=== PATIENT | female | born 1955 | race Caucasian/White ===

== ENCOUNTER → 2018-09-15 | Outpatient (CLI) | payer OTHER ==
--- NOTE | 2018-09-15 13:17 | XR ---
EXAMINATION TYPE: XR chest 2V DATE OF EXAM: 09/08/2017 COMPARISON: NONE TECHNIQUE: PA and lateral views submitted. HISTORY: Breast cancer FINDINGS: The lungs are clear and there is no pneumothorax, pleural effusion, or focal pneumonia. Hypertrophi c and degenerative change of the vertebral column. No overt failure. Arthropathy of the shoulders. Perales rgical change in the abdomen. IMPRESSION: 1. No acute process.
--- NOTE | 2018-09-15 15:03 | MM ---
Reason for exam: additional evaluation requested from prior study. Last mammogram was performed 1 year ago. History: Patient is postmenopausal, has history of breast cancer at age 45, history of other cancer, and is nulliparous. Benign left mammotome panel of the left breast, April 13, 2007. Benign right mammotome panel of the right breast, March 24, 2006. Benign right mammotome panel of the right breast, March 24, 2006. Malignant stereotactic core biopsy of the left breast, February 05, 2001. Lumpectomy of the left breast, 2000. Chemotherapy, 2000. Core biopsy of the left breast. Lumpectomy of the left breast. Radiation therapy of the left breast. Took hormonal contraceptives for 3 months beginning at age 26. Taking tamoxifen for 8 years beginning at age 46. Physical Findings: Nurse did not find any significant physical abnormalities on exam. MG Diagnostic Mammo w CAD [facility] Bilateral CC and MLO view(s) were taken. ML view(s) were taken of the right breast. Prior study comparison: September 08, 2017, bilateral MG diagnostic mammo w CAD [facility]. September 03, 2016, bilateral MG diagnostic mammo w CAD [facility]. The breast tissue is heterogeneously dense. This may lower the sensitivity of mammography. There are increased calcifications posterior depth right upper outer quadrant in comparison to priors although these appear similar to multiple other bilateral calcifications and are probably benign. These are in addition to numerous bilateral calcifications. Post operative change on the left. These results were verbally communicated with the patient and result sheet given to the patient on 09/15/18. ASSESSMENT: Probably benign, BI-RAD 3 RECOMMENDATION: Follow-up diagnostic mammogram of the right breast in 6 months.
== END | disposition home or self-care (01) ==
LOC: RADMAMWWP 12:53
PROVIDERS: ATTEND Internal Medicine Hematology & Oncology
DX: Z08 Encounter for follow-up examination after completed treatment for malignant neoplasm (principal); C50.919 Malignant neoplasm of unspecified site of unspecified female breast; K21.9 Gastro-esophageal reflux disease without esophagitis; K58.9 Irritable bowel syndrome, unspecified; E66.3 Overweight; Z85.3 Personal history of malignant neoplasm of breast
CPT/HCPCS: 71046; 77066

== ENCOUNTER → 2020-06-28 | Outpatient (CLI) | payer MEDICARE, BC ==
--- NOTE | 2020-06-28 12:52 | XR ---
EXAMINATION TYPE: XR chest 2V DATE OF EXAM: 06/28/2020 COMPARISON: Prior chest x-ray 09/15/2018 HISTORY: Breast cancer TECHNIQUE: Frontal and lateral views of the chest are obtained. FINDINGS: There is no focal air space opacity, pleural effusion, or pneumothorax seen. The cardiac silhouette size is within normal limits. The osseous structures are intact. Surgical clips are pres ent in the right upper quadrant. IMPRESSION: No acute cardiopulmonary process.
--- NOTE | 2020-06-29 17:35 | MM ---
Reason for exam: additional evaluation requested from prior study. Last mammogram was performed 1 year and 9 months ago. History: Patient is postmenopausal, has history of breast cancer at age 45, history of other cancer, and is nulliparous. Benign left mammotome panel of the left breast, April 13, 2007. Benign right mammotome panel of the right breast, March 24, 2006. Benign right mammotome panel of the right breast, March 24, 2006. Malignant stereotactic core biopsy of the left breast, February 05, 2001. Lumpectomy of the left breast, 2000. Chemotherapy, 2000. Core biopsy of the left breast. Lumpectomy of the left breast. Radiation therapy of the left breast. Took hormonal contraceptives for 3 months beginning at age 26. Taking tamoxifen for 8 years beginning at age 46. Physical Findings: Nurse did not find any significant physical abnormalities on exam. MG 3D Diag Mammo W/Cad [facility] Bilateral CC and MLO view(s) were taken. Prior study comparison: September 15, 2018, bilateral MG diagnostic mammo w CAD [facility]. September 08, 2017, bilateral MG diagnostic mammo w CAD [facility]. The breast tissue is heterogeneously dense. This may lower the sensitivity of mammography. Finding: There are typically benign coarse calcifications in the left breast. There are stable right breast calcifications. Asymmetric breast tissue greater in the right breast. No significant changes in finding since September 15, 2018 and September 08, 2017. These results were verbally communicated with the patient and result sheet given to the patient on 06/28/20. ASSESSMENT: Benign, BI-RAD 2 RECOMMENDATION: Routine screening mammogram of both breasts in 1 year.
== END | disposition home or self-care (01) ==
LOC: RADMAMWWP 10:41
PROVIDERS: ATTEND Internal Medicine Hematology & Oncology
DX: C50.919 Malignant neoplasm of unspecified site of unspecified female breast (principal); Z85.3 Personal history of malignant neoplasm of breast; E66.3 Overweight; K21.9 Gastro-esophageal reflux disease without esophagitis; K58.9 Irritable bowel syndrome, unspecified
CPT/HCPCS: 71046; 77066; G0279; 77062

== ENCOUNTER → 2021-08-02 | Outpatient (CLI) | payer MEDICARE, BC ==
--- NOTE | 2021-08-02 14:28 | XR ---
EXAMINATION TYPE: XR chest 2V DATE OF EXAM: 08/02/2021 COMPARISON: Chest x-ray 06/28/2020 HISTORY: C 50.919 TECHNIQUE: Frontal and lateral views of the chest are obtained. FINDINGS: There is no focal air space opacity, pleural effusion, or pneumothorax seen. The cardiac silhouette size is within normal limits. Left breast smaller than the right breast. The osseous struc tures are intact, stable. IMPRESSION: No acute cardiopulmonary process.
--- NOTE | 2021-08-03 12:08 | MM ---
Reason for exam: screening (asymptomatic). Last mammogram was performed 1 year and 1 month ago. History: Patient is postmenopausal, has history of breast cancer at age 45, history of other cancer, and is nulliparous. Benign left mammotome panel of the left breast, April 13, 2007. Benign right mammotome panel of the right breast, March 24, 2006. Benign right mammotome panel of the right breast, March 24, 2006. Malignant stereotactic core biopsy of the left breast, February 05, 2001. Lumpectomy of the left breast, 2000. Chemotherapy, 2000. Core biopsy of the left breast. Lumpectomy of the left breast. Radiation therapy of the left breast. Took hormonal contraceptives for 3 months beginning at age 26. Took tamoxifen for 8 years beginning at age 46. Physical Findings: A clinical breast exam by your physician is recommended on an annual basis and results should be correlated with mammographic findings. MG 3D Screening Mammo W/Cad Bilateral CC and MLO view(s) were taken. Prior study comparison: June 28, 2020, bilateral MG 3d diag mammo w/cad [facility]. September 15, 2018, bilateral MG diagnostic mammo w CAD [facility]. September 08, 2017, bilateral MG diagnostic mammo w CAD [facility]. September 03, 2016, bilateral MG diagnostic mammo w CAD [facility]. Extensive calcifications left breast, stable. Asymmetric breast tissue, greater in the right breast. No significant changes when compared with prior studies. ASSESSMENT: Benign, BI-RAD 2 RECOMMENDATION: Routine screening mammogram of both breasts in 1 year. Manage on a clinical basis with regard to left nipple bleeding.
== END | disposition home or self-care (01) ==
LOC: RADMAMWWP 13:07
PROVIDERS: ATTEND Internal Medicine Hematology & Oncology

== ENCOUNTER → 2022-08-09 | Outpatient (CLI) | payer MEDICARE, BC ==
--- NOTE | 2022-08-09 12:03 | XR ---
EXAMINATION TYPE: XR chest 2V DATE OF EXAM: 08/09/2022 COMPARISON: 08/02/2021 TECHNIQUE: PA and lateral views submitted. HISTORY: Annual chest x-ray FINDINGS: The lungs are clear and there is no pneumothorax, pleural effusion, or focal pneumonia. Heart size normal. Hypertrophic degenerative changes of the spine. No overt failure. Postsurgical change within the right upper quadrant. IMPRESSION: 1. No acute process.
== END | disposition home or self-care (01) ==
LOC: RADXRMAIN 11:36
PROVIDERS: ATTEND Internal Medicine Hematology & Oncology
DX: C50.919 Malignant neoplasm of unspecified site of unspecified female breast (principal); R06.02 Shortness of breath
CPT/HCPCS: 71046

== ENCOUNTER → 2022-08-09 | Outpatient (CLI) | payer MEDICARE, BC ==
--- NOTE | 2022-08-16 18:05 | MM ---
Reason for Exam: Screening (asymptomatic). Last screening mammogram was performed 12 month(s) ago. Patient History: Menarche at age 10. Patient has no children. Hysterectomy at age 30. Postmenopausal. Breast cancer, left, age 45. Other cancer. Hormonal Contraceptives for 3 months from age 26 until age 26. Tamoxifen for 8 years from age 46 until age 54. 2000, Lumpectomy on the Left side. Core Biopsy on the Left side. Lumpectomy on the Left side. 04/13/2007, Benign Core Biopsy on the left side. 03/24/2006, Benign Core Biopsy on the right side. 03/24/2006, Benign Core Biopsy on the right side. 02/05/2001, Malignant Stereotactic Core Biopsy on the left side. Radiation Therapy, left. 2000, Chemotherapy. Prior Study Comparison: 09/15/2018 Bilateral Diagnostic Mammogram, [facility]. 06/28/2020 Bilateral Diagnostic Mammogram, [facility]. 08/02/2021 Bilateral Screening Mammogram, [facility]. Tissue Density: The breast tissue is heterogeneously dense. This may lower the sensitivity of mammography. Findings: Analyzed By CAD. Diffuse scattered calcifications in the left breast and to lesser extent right breast which are stable. There is no suspicious group of microcalcifications or new suspicious mass in either breast. Overall Assessment: Benign, BI-RAD 2 Management: Screening Mammogram of both breasts in 1 year. A clinical breast exam by your physician is recommended on an annual basis and results should be correlated with mammographic findings. Electronically signed and approved by: John Lujan DO
== END | disposition home or self-care (01) ==
LOC: RADMAMWWP 11:56
PROVIDERS: ATTEND Internal Medicine Hematology & Oncology
DX: Z12.31 Encounter for screening mammogram for malignant neoplasm of breast (principal); Z78.0 Asymptomatic menopausal state; Z85.3 Personal history of malignant neoplasm of breast; Z98.890 Other specified postprocedural states
CPT/HCPCS: 77063; 77067

== ENCOUNTER → 2023-08-12 | Outpatient (CLI) | payer MEDICARE, BC ==
--- NOTE | 2023-08-12 09:43 | XR ---
EXAMINATION TYPE: XR chest 2V DATE OF EXAM: 08/12/2023 COMPARISON: 08/19/2022 TECHNIQUE: PA and lateral views submitted. HISTORY: Breast cancer follow-up FINDINGS: The lungs are clear and there is no pneumothorax, pleural effusion, or focal pneumonia. Heart size normal and no overt failure. Osseous structures demonstrate hypertrophic and degenerative changes of the spine. AC joint arthropathy. IMPRESSION: 1. No acute process.
== END | disposition home or self-care (01) ==
LOC: RADMAMWWP 07:52
PROVIDERS: ATTEND Internal Medicine Hematology & Oncology
DX: C50.919 Malignant neoplasm of unspecified site of unspecified female breast (principal)
CPT/HCPCS: 71046

== ENCOUNTER → 2023-09-29 | Outpatient (CLI) | payer MEDICARE, BC ==
--- NOTE | 2023-09-29 18:46 | MR ---
EXAMINATION TYPE: MR brain wo/w con DATE OF EXAM: 09/29/2023 6:23 PM CLINICAL INDICATION:Female, 68 years old with history of C50.919 MALIGNANT NEOPLASM OF UNSP SITE OF U NSPECI, Dizziness, breast cancer. COMPARISON: None TECHNIQUE: Multi planar, multi sequence imaging was performed through the brain including: T1, T2, In version recovery, susceptibility weighted imaging and gradient echo imaging and Diffusion weighted im aging. The patient was then given intravenous contrast and multi planar, T1 fat-saturation images wer e obtained. IV Contrast: 10 cc Gadavist FINDINGS: Homogenous lesion on the posterior dura measuring 10 x 5 mm with dural tail noted series 801 image 10 0. No additional abnormal enhancement is seen. The romo-white junctions, ventricular system, basal cisterns appear unremarkable. Diffusion-weighted imaging shows no evidence of restricted diffusion to suggest acute/subacute infarct. Intracranial ar terial flow voids are maintained. Midline structures show no abnormality. Scattered foci of high T2 s ignal intensity are seen within the periventricular white matter. The susceptibility weighted images do not reveal any evidence for micro-hemorrhage. The bone marrow signal is within normal limits. Paranasal sinuses and mastoid air cells: Mild scattered paranasal sinus disease. Visualized orbits: Orbital contents are intact. IMPRESSION: 1. There is a dural based lesion possibly relating to a meningioma less likely metastatic disease. S hort-term follow-up recommended to ensure stability. Comparisons with outside imaging would also be o f benefit for stability. No additional abnormal enhancement to suggest metastatic disease. 2. No evidence of acute/subacute infarct 3. Nonspecific white matter changes, likely related to small vessel ischemic disease
== END | disposition home or self-care (01) ==
LOC: RADMRIMAIN 17:19
PROVIDERS: ATTEND Internal Medicine Hematology & Oncology
DX: C50.919 Malignant neoplasm of unspecified site of unspecified female breast (principal); R90.82 White matter disease, unspecified
CPT/HCPCS: 70553; A9585

== ENCOUNTER → 2023-10-14 | Outpatient (CLI) | payer MEDICARE, BC | END | disposition home or self-care (01) | LOC: RADUSWWP 14:02 | PROVIDERS: ATTEND Surgery | DX: Z53.9 Procedure and treatment not carried out, unspecified reason (principal) ==

== ENCOUNTER → 2023-10-14 | Outpatient (CLI) | payer MEDICARE, BC ==
--- NOTE | 2023-10-14 15:13 | MM ---
Reason for Exam: Clinical finding. Last mammogram was performed 1 year(s) and 2 month(s) ago. Patient History: Menarche at age 10. Patient has no children. Hysterectomy at age 30. Postmenopausal. Breast cancer, left, age 45. Other cancer. Hormonal Contraceptives for 3 months from age 26 until age 26. Tamoxifen for 8 years from age 46 until age 54. 2000, Lumpectomy on the Left side. Core Biopsy on the Left side. Lumpectomy on the Left side. 04/13/2007, Benign Core Biopsy on the left side. 03/24/2006, Benign Core Biopsy on the right side. 03/24/2006, Benign Core Biopsy on the right side. 02/05/2001, Malignant Stereotactic Core Biopsy on the left side. Radiation Therapy, left. 2000, Chemotherapy. Prior Study Comparison: 09/08/2017 Bilateral Diagnostic Mammogram, [facility]. 09/15/2018 Bilateral Diagnostic Mammogram, [facility]. 06/28/2020 Bilateral Diagnostic Mammogram, [facility]. 08/02/2021 Bilateral Screening Mammogram, [facility]. 08/09/2022 Bilateral MG 3D screening mammo w/cad, [facility]. Tissue Density: The breast tissue is heterogeneously dense. This may lower the sensitivity of mammography. Findings: Analyzed By CAD. Diffuse scattered calcifications in the left breast and to lesser extent right breast which are stable. Posttreatment changes of the left breast. There is no suspicious group of microcalcifications or new suspicious mass in either breast. Overall Assessment: Incomplete: need additional imaging evaluation, BI-RAD 0 Management: Diagnostic Breast Ultrasound of the left breast. A clinical breast exam by your physician is recommended on an annual basis and results should be correlated with mammographic findings. This exam should not preclude additional follow-up of suspicious palpable abnormalities. Results were given to the patient verbally at the time of exam. Electronically signed and approved by: Kaveh Mcclellan D.O.
--- NOTE | 2023-10-14 15:34 | USB ---
Reason for Exam: Clinical finding. Patient History: Menarche at age 10. Patient has no children. Hysterectomy at age 30. Postmenopausal. Breast cancer, left, age 45. Other cancer. Hormonal Contraceptives for 3 months from age 26 until age 26. Tamoxifen for 8 years from age 46 until age 54. 2000, Lumpectomy on the Left side. Core Biopsy on the Left side. Lumpectomy on the Left side. 04/13/2007, Benign Core Biopsy on the left side. 03/24/2006, Benign Core Biopsy on the right side. 03/24/2006, Benign Core Biopsy on the right side. 02/05/2001, Malignant Stereotactic Core Biopsy on the left side. Radiation Therapy, left. 2000, Chemotherapy. Technique: Method: Whole Breast Handheld. Prior Study Comparison: 06/28/2020 Bilateral Diagnostic Mammogram, [facility]. 08/02/2021 Bilateral Screening Mammogram, [facility]. 08/09/2022 Bilateral MG 3D screening mammo w/cad, [facility]. Findings: The whole breast of the left breast, the axilla of the left breast and the retroareolar of the left breast were scanned. Complete ultrasound of the left breast was performed with additional evaluation of the nipple and axilla. There is a heterogenous hypoechoic regular region posterior to the left nipple without internal color flow. A site of wound that 3:00 8 cm from the nipple there is heterogenous hypoechoic region without internal color flow identified. Possible phlegmon/abscess versus malignancy. This demonstrates irregular margins with posterior acoustic shadowing. Additionally there is multiple scattered calcifications with posterior acoustic shadowing demonstrated. No axilla adenopathy identified. Overall Assessment: Suspicious, BI-RAD 4 Management: Ultrasound Core Biopsy of the left breast. Ultrasound-guided biopsy of both regions. A clinical breast exam by your physician is recommended on an annual basis and results should be correlated with mammographic findings. This exam should not preclude additional follow-up of suspicious palpable abnormalities. Results were given to the patient verbally at the time of exam. Electronically signed and approved by: Kaveh Mclcellan D.O.
== END | disposition home or self-care (01) ==
LOC: RADMAMWWP 14:09
PROVIDERS: ATTEND Surgery
DX: R92.333 Mammographic heterogeneous density, bilateral breasts (principal); N63.20 Unspecified lump in the left breast, unspecified quadrant; Z78.0 Asymptomatic menopausal state; Z85.3 Personal history of malignant neoplasm of breast
CPT/HCPCS: 77066; 76641; G0279; 77062

== ENCOUNTER → 2023-10-27 | Day surgery (SDC) | payer MEDICARE, BC ==
--- NOTE | 2023-11-03 11:00 | MM ---
Reason for Exam: Post Procedure Mammogram. Last screening mammogram was performed less than 1 month ago. Patient History: Menarche at age 10. Patient has no children. Hysterectomy at age 30. Postmenopausal. Breast cancer, left, age 45. Other cancer. Hormonal Contraceptives for 3 months from age 26 until age 26. Tamoxifen for 8 years from age 46 until age 54. 2000, Lumpectomy on the Left side. Core Biopsy on the Left side. Lumpectomy on the Left side. 04/13/2007, Benign Core Biopsy on the left side. 03/24/2006, Benign Core Biopsy on the right side. 03/24/2006, Benign Core Biopsy on the right side. 02/05/2001, Malignant Stereotactic Core Biopsy on the left side. Radiation Therapy, left. 2000, Chemotherapy. Prior Study Comparison: 09/15/2018 Bilateral Diagnostic Mammogram, [facility]. 06/28/2020 Bilateral Diagnostic Mammogram, [facility]. 08/02/2021 Bilateral Screening Mammogram, [facility]. 08/09/2022 Bilateral MG 3D screening mammo w/cad, [facility]. 10/14/2023 Bilateral MG 3D diag mammo w/cad [facility], [facility]. Tissue Density: Left: The breast tissue is heterogeneously dense. This may lower the sensitivity of mammography. Pathology Description: Location: 3 o'clock. Marker Left Behind. Cores: 2 Skin Nicks: 1 Gauge: 14 The procedure of ultrasound guided core biopsy was explained to the patient. Benefits, alternatives, and risks were discussed. An informed consent was then obtained. A time out was performed. The patient was placed in supine positioning for imaging and for the procedure. The overlying skin was prepped and draped in usual sterile fashion. 5 ml 1% lidocaine was used as anesthetic into the skin and subcutaneous tissue up to area of concern in the 3:00 8 cm from nipple in the left breast breast. Under ultrasound guidance, a 14-gauge biopsy gun device was used to obtain 2 core samples. Following this, a HydroMARK biopsy clip was left in the lesion. A post procedure mammogram was performed, clip seen and correlates with the mammographic finding. The patient tolerated the procedure well without any immediate complication. The patient was discharged home in stable condition. Impression: Successful, uncomplicated ultrasound guided core biopsy of area of concern in the left breast. PATHOLOGY STATUS: Results pending. Pathology Results: Result: Malignant, Invasive ductal carcinoma. LEFT BREAST, 3:00, ULTRASOUND GUIDED NEEDLE CORE BIOPSY: Invasive moderately differentiated ductal carcinoma (Grade 2). See Surgical Pathology Cancer Case Summary. Overall Assessment: Malignant Assessment: MG diagnostic mammo LT wo CAD. - Left: Known biopsy proven malignancy, BI-RAD 6. Management: Surgical Consultation of the left breast. Electronically signed and approved by: John Lujan DO
== END ==
LOC: RADUSWWP 12:47
PROVIDERS: ATTEND Surgery
DX: C50.812 Malignant neoplasm of overlapping sites of left female breast (principal); R92.8 Other abnormal and inconclusive findings on diagnostic imaging of breast; Z78.0 Asymptomatic menopausal state; Z51.11 Encounter for antineoplastic chemotherapy
CPT/HCPCS: 88305; 88342; 88341; 77065; 19083; A4648

== ENCOUNTER → 2023-11-12 | Outpatient (CLI) | payer MEDICARE, BC ==
--- NOTE | 2023-11-13 10:55 | BMR ---
EXAM DATE: 11/12/2023 EXAM DESCRIPTION: MRI-Breast Bilat (W/WO Contrast) INDICATION: Biopsy-proven left breast carcinoma. Remote history of left breast carcinoma in 2000 postlumpectomy. Pre-surgical planning. COMPARISON: Prior mammogram and ultrasound dated 10/14/2023 and 10/27/2023 CONTRAST: Eight cc Gadavist contrast material. TECHNIQUE: Multi sequence multiplanar MR imaging of the breasts was obtained at [facility]. Subsequently, after the uneventful intravenous administration of Gadavist contrast material, 6 dynamic sequences were then obtained at [facility] Interpretation of the study was performed by [facility] radiologist Post processing was performed utilizing a [employer] CAD workstation. FINDINGS: The breasts are composed of heterogeneous fibroglandular tissue. There is mild background parenchymal enhancement identified. No axillary or internal mammary lymphadenopathy. The bone marrow signal intensity is unremarkable. No adenopathy in the visualized mediastinum. Postsurgical changes are stable in the left axilla. T2 weighted images demonstrated no dominant cystic lesion in either breast. Several T2 bright masses are seen in the visualize liver, dominant 1 in the left hepatic lobe measures 6.2 cm likely representing simple cysts. Post contrast images of the left breast demonstrated 2 adjacent irregular enhancing masses in the at left 3 o'clock position mid to posterior depth with washout kinetics the dominant 1 is posterior and measures 3.6 x 4.3 x 3.8 cm invading the adjacent skin surface (series 601, image 40 and series 503, image 206) adjacent to the prior lumpectomy site and the smaller anterolateral one at 3 o'clock position middle depth measures 2.6 x 1.6 x 1.5 cm (601 image 43 and series 503, image 190) invading the adjacent skin surface. In addition a 0.9 x 0.5 x 0.6 cm enhancing satellite nodule (601 image 54 and series 503, image 146) is present in the inferior/posterior and slightly medial to the afore mention dominant mass in the left inferolateral breast at posterior depth. A 1.2 x 0.7 x 1.1 cm ovoid circumscribed mass without post contrast enhancement in the left breast at 9 o'clock position middle depth (601 image 184 and series 503, image 202), likely benign. There is no abnormal enhancement in the right breast to suggest malignancy. There is no abnormal signal or enhancement in the chest wall or subcutaneous tissue. IMPRESSION: 1. Two adjacent irregular enhancing masses in the left breast at 3 o'clock position mid to posterior depth with washout kinetics invading the adjacent skin surface consistent with known primary. 2. A 0.9 cm enhancing nodule in the inferolateral quadrant of left breast 8.5 cm posterior to the nipple, likely represent a satellite nodule. 3. No axillary or internal mammary lymphadenopathy. 4. No MR evidence of malignancy in the right breast. Final assessment: BI-RADS category 6: Known malignancy: Appropriate management is recommended. MTDD
== END | disposition home or self-care (01) ==
LOC: RADMRIMAIN 08:27
PROVIDERS: ATTEND Internal Medicine Hematology & Oncology
DX: C50.412 Malignant neoplasm of upper-outer quadrant of left female breast (principal)
CPT/HCPCS: C8908; A9585; 77049

== ENCOUNTER → 2023-11-12 | Outpatient (CLI) | payer MEDICARE, BC ==
--- NOTE | 2023-11-13 09:58 | CA ---
Transthoracic Echo Report Name: Jeny Murphy Age: 68 Gender: F : 1955 Exam Date: 11/12/2023 13:09 Exam Location: [facility] Ht (in): 64 Wt (lb): 219 Ordering Physician: Lennox Hernandes MD Attending/Referring Phys: Seafood [employer] Maranda Paredes [facility] Procedure CPT: Indications: Z01.818 pre chemo Cardiac Hx: Technical Quality: Fair Contrast 1: Total Dose (mL): Contrast 2: Total Dose (mL): MEASUREMENTS (Male / Female) Normal Values 2D ECHO LV Diastolic Diameter PLAX 3.6 cm 4.2 - 5.9 / 3.9 - 5.3 cm LV Systolic Diameter PLAX 2.5 cm IVS Diastolic Thickness 1.1 cm 0.6 - 1.0 / 0.6 - 0.9 cm LVPW Diastolic Thickness 1.1 cm 0.6 - 1.0 / 0.6 - 0.9 cm LV Relative Wall Thickness 0.6 LVOT Diameter 2.0 cm LV Diastolic Volume MOD BP 40.3 cm??? 67 - 155 / 56 - 104 cm??? LV Systolic Volume MOD BP 17.7 cm??? 22 - 58 / 19 - 49 cm??? LV Ejection Fraction MOD BP 56.1 % >= 55 % LV Cardiac Index MOD BP 1055.4 cm???/min???m??? LV Diastolic Volume MOD 4C 33.4 cm??? LV Systolic Volume MOD 4C 14.9 cm??? LV Ejection Fraction MOD 4C 55.4 % LV Cardiac Index MOD 4C 862.7 cm???/min???m??? LV Diastolic Length 4C 5.9 cm LV Systolic Length 4C 4.7 cm LV Diastolic Volume MOD 2C 46.5 cm??? LV Systolic Volume MOD 2C 18.0 cm??? LV Ejection Fraction MOD 2C 61.3 % LV Cardiac Index MOD 2C 1329.8 cm???/min???m??? LV Diastolic Length 2C 6.4 cm LV Systolic Length 2C 5.5 cm Ascending Aorta Diameter 3.1 cm M-MODE Aortic Root Diameter MM 2.5 cm LA Systolic Diameter MM 2.9 cm LA Ao Ratio MM 1.1 AV Cusp Separation MM 1.9 cm DOPPLER AV Peak Velocity 109.2 cm/s AV Peak Gradient 4.8 mmHg AV Mean Velocity 83.4 cm/s AV Mean Gradient 3.0 mmHg AV Velocity Time Integral 20.0 cm AI Peak Velocity 314.5 cm/s AI Peak Gradient 39.6 mmHg AI Pressure Half Time 725.5 ms LVOT Peak Velocity 100.8 cm/s LVOT Peak Gradient 4.1 mmHg LVOT Velocity Time Integral 17.6 cm LVOT Stroke Volume 55.9 cm??? LVOT Stroke Volume Index 27.5 ml/m??? LVOT Cardiac Index 2607.5 cm???/min???m??? AV Area Cont Eq vti 2.8 cm??? AV Area Cont Eq pk 2.9 cm??? Mitral E Point Velocity 59.8 cm/s Mitral A Point Velocity 97.6 cm/s Mitral E to A Ratio 0.6 MV Deceleration Time 157.1 ms LV E' Lateral Velocity 10.0 cm/s Mitral E to LV E' Lateral Ratio 6.0 LV E' Septal Velocity 7.5 cm/s Mitral E to LV E' Septal Ratio 7.9 TR Peak Velocity 219.2 cm/s TR Peak Gradient 19.2 mmHg Right Atrial Pressure 3.0 mmHg Pulmonary Artery Systolic Pressu 22.2 mmHg Right Ventricular Systolic Press 22.2 mmHg FINDINGS Left Ventricle Mildly increased left ventricular wall thickness. Left ventricular cavity size normal. Normal left ventricular systolic function with no obvious regional wall motion abnormalities. Left ventricular ejection fraction is estimated at 55- 60%. Right Ventricle Normal right ventricular size. Right Atrium Normal right atrial size. Left Atrium Normal left atrial size. Mitral Valve Structurally normal mitral valve. No mitral regurgitation. Aortic Valve Trileaflet aortic valve. Trace aortic regurgitation. Tricuspid Valve Structurally normal tricuspid valve. Mild tricuspid regurgitation. Pulmonic Valve Structurally normal pulmonic valve. Mild pulmonic regurgitation. Pericardium No pericardial effusion. Aorta Normal size aortic root and proximal ascending aorta. CONCLUSIONS Left ventricular ejection fraction is estimated at 55-60%. No obvious regional wall motion abnormalities. Mildly increased left ventricular wall thickness. No significant valvular dysfunction RVSP estimated less than 25 mmHg Previewed by: Dr Prince Villa (Electronically Signed) Final Date: 13 November 2023 09:57
== END | disposition home or self-care (01) ==
LOC: RADECHMAIN 12:53
PROVIDERS: ATTEND Internal Medicine Hematology & Oncology
DX: Z01.818 Encounter for other preprocedural examination (principal); I51.89 Other ill-defined heart diseases
CPT/HCPCS: 93306

== ENCOUNTER → 2023-11-28 | Day surgery (SDC) | payer MEDICARE, BC ==
[2023-11-25 15:48] VITALS: BMI 37.5
[~2023-11-28] MED LIST: ACETAMINOPHEN TAB 325 MG TAB PO PRN; ACETAMINOPHEN TAB 500 MG TAB PO PRN; DEXAMETHASONE SOD PHOSPHATE 4 MG/ML 1 ML VIAL IV ONE; HEPARIN SODIUM,PORCINE 100 UNIT/ML 5 ML VIAL IV ONE; HEPARIN SODIUM,PORCINE 5,000 UNIT/ML 1 ML VIAL SQ PRN; HYDROmorphone 0.5 MG/0.5 ML SYRINGE IVP PRN; INSULIN ASPART (NovoLOG) 100 UNIT/ML VIAL SQ ONE; KETOROLAC 15 MG/ML 1 ML VIAL ONE; LACTATED RINGERS 1,000 ML IV SCH; LIDOCAINE 1% INJ 10MG/ML (20 ML MDV) ONE; LIDOCAINE 1% INJ 10MG/ML (20 ML MDV) SQ ONE; MIDAZOLAM 2 MG/2 ML VIAL IV PRN; MIDAZOLAM 2 MG/2 ML VIAL ONE; NALOXONE 0.4 MG/ML 1 ML VIAL IV PRN; ONDANSETRON 4 MG/2 ML VIAL IVP ONE; PROPOFOL 10 MG/ML 20 ML VIAL IV ONE; Pre Op ABX Message 1 EACH MISC MISCELLANE ONE; SCOPOLAMINE 1 MG/72 HR PATCH TRANSDERM ONE; SODIUM CHLORIDE 0.9% 50 ML with ceFAZolin 2,000 MG IV ONE; fentaNYL (PF) 50 MCG/ML 2 ML AMP ONE; traMADol 50 MG TAB PO PRN
[2023-11-28 11:39] LABS: Glucose,Whole Blood 271 mg/dL (70-110)
--- NOTE | 2023-11-28 12:02 | P.GSHP ---
History of Present Illness H&P Date: 11/28/23 Chief Complaint: Left breast cancer 68-year-old female here for Port-A-Cath placement. Patient found to have an ulcerated mass left breast. Recent core biopsy shows triple negative breast cancer. Patient with history of previous bilateral breast cancer in the past. She is starting ernestina adjuvant therapy. Past Medical History Past Medical History: Cancer, Diabetes Mellitus, GERD/Reflux, Hearing Disorder / Deafness, Thyroid Disorder Additional Past Medical History / Comment(s): Current left breast cancer. Diet Controlled Diabetes. Was to have PET Scan recently - cancelled due to high blood sugar of 331. Vertigo. Hx skin cancer in 2017. Hx left breast cancer in 1999. Migraines. Hemangioma, dizziness. Hard of hearing. History of Any Multi-Drug Resistant Organisms: None Reported Past Surgical History: Cholecystectomy, Hysterectomy, Tonsillectomy Additional Past Surgical History / Comment(s): Thyroidectomy for nodules, skin c ancer removed, left breast lumpectomy(chemo and radiation). Past Anesthesia/Blood Transfusion Reactions: Motion Sickness, Postoperative Nausea & Vomiting (PONV) Additional Past Anesthesia/Blood Transfusion Reaction / Comment(s): Vertigo. Past Psychological History: No Psychological Hx Reported Additional Psychological History / Comment(s): Effexor for menopause symptoms. Smoking Status: Never smoker Past Alcohol Use History: None Reported Past Drug Use History: None Reported - Past Family History Mother Family Medical History: Cancer Additional Family Medical History / Comment(s): Sarcoma. Father Family Medical History: Cancer Additional Family Medical History / Comment(s): Colon cancer. Medications and Allergies Home Medications Medication Instructions Recorded Confirmed Type Levothyroxine Sodium [Synthroid] 173 mcg PO HS 10/15/23 11/25/23 History Venlafaxine HCl ER [Effexor Xr] 75 mg PO HS 10/15/23 11/25/23 History Acetaminophen [Tylenol Extra 500 - 1,000 mg PO Q4-6H PRN 11/25/23 11/28/23 History Strength] Allergies Allergy/AdvReac Type Severity Reaction Status Date / Time cephalexin monohydrate AdvReac Nausea & Verified 11/28/23 11:07 [From Keflex] Vomiting propoxyphene HCl AdvReac Nausea & Verified 11/28/23 11:07 [From Darvon] Vomiting Surgical - Exam Vital Signs Temp Pulse Resp BP Pulse Ox 97.1 F L 107 H 18 148/72 97 11/28/23 11:21 11/28/23 11:21 11/28/23 11:21 11/28/23 11:21 11/28/23 11:21 Physical exam: General: Well-developed, well-nourished HEENT: Normocephalic, sclerae nonicteric Abdomen: Nontender, nondistended Extremities: No edema Neuro: Alert and oriented Results - Labs Abnormal Lab Results - Last 24 Hours (Table) 11/28/23 Range/Units 11:25 POC Glucose (mg/dL) 271 H (70-110) mg/dL Assessment and Plan (1) Breast cancer, left Narrative/Plan: 68-year-old female with recent diagnosis of left breast cancer. We'll proceed with Port-A-Cath placement at this time. Risks of bleeding, infection, DVT, pneumothorax, catheter malfunction, anesthesia related complications were discussed. The patient understands and wishes to proceed. Current Visit: Yes Status: Acute Code(s): C50.912 - MALIGNANT NEOPLASM OF UNSPECIFIED SITE OF LEFT FEMALE BREAST SNOMED Code(s): 477604996
--- NOTE | 2023-11-28 13:37 | P.OP ---
Date of Procedure: 11/28/23 Procedure(s) Performed: PREOPERATIVE DIAGNOSIS: Left breast cancer POSTOPERATIVE DIAGNOSIS: Same PROCEDURE: Port-A-Cath placement with fluoroscopic and ultrasound guidance SURGEON: Carlos A EBL: Minimal ANESTHESIA: General COMPLICATIONS: None OPERATIVE PROCEDURE: Patient was brought and placed on the operative table in the supine position. The patient was placed under general anesthesia at that time. The chest and neck were prepped and draped in usual sterile fashion. The ultrasound probe was used to identify the location of the right internal jugular vein. The skin was localized with lidocaine. The Seldinger needle was advanced into the IJ under ultrasound guidance. The wire was advanced through the needle under fluoroscopic guidance into the superior vena cava. A port pocket was created in the right infraclavicular location. The catheter was tunneled from the wire entrance site to the port pocket. The port was then connected to the catheter. The dilator introducer was threaded over the guidewire. The guidewire and dilator were then removed. The catheter was advanced through the introducer and introducer was then removed. The tip was seen to be in the right atrial junction via fluoroscopy. A picture of the radiograph showing the tip of the catheter was taken. Port was flushed with both saline and a Hep-Lock solution. There was good flow both in and out of the port. The port was sutured in underlying tissues using 3-0 silk sutures. The subcutaneous tissues were reapproximated using 3-0 Vicryl sutures and the skin at both locations using 4-0 Monocryl sutures. Skin glue and sterile dressings then applied. DISPOSITION: Stable to recovery room
[2023-11-28 13:52] LABS: Glucose,Whole Blood 241 mg/dL (70-110)
[2023-11-28 14:00] VITALS: RESP 14; TEMP 97
[2023-11-28 15:00] LABS: Glucose,Whole Blood 200 mg/dL (70-110)
[2023-11-28 15:35] VITALS: BP 117/78; PULSE 77
--- NOTE | 2023-11-28 16:11 | XR ---
EXAMINATION TYPE: XR chest 1V confirm line [facility] DATE OF EXAM: 11/28/2023 COMPARISON: 08/12/2023 HISTORY: 68-year-old female post Port-A-Cath placement, check line TECHNIQUE: Single frontal view of the chest is obtained. FINDINGS: Heart normal size. Right intradiscal injection port with catheter tip at the caval atrial junction. Hazy density at the left lower lung likely relates to overlying soft tissue and is unchange d. No other consolidation or pleural effusion seen. No appreciable pneumothorax. IMPRESSION: Interval placement of right anterior chest wall injection port. Catheter tip at the cavo atrial junction.
--- NOTE | 2023-11-28 17:53 | FL ---
EXAMINATION TYPE: FL guided central line placement DATE OF EXAM: 11/28/2023 FLUOROSCOPY Fluoroscopy time of 18 seconds was used during right anterior chest wall injection port placement. 1 image/s document/s the procedure. 0.04771 mGycm2 DAP dose
== END ==
LOC: OR 10:39
PROVIDERS: ATTEND Surgery
DX: C50.912 Malignant neoplasm of unspecified site of left female breast (principal); Z85.3 Personal history of malignant neoplasm of breast; E11.9 Type 2 diabetes mellitus without complications; K21.9 Gastro-esophageal reflux disease without esophagitis; H91.90 Unspecified hearing loss, unspecified ear; E03.9 Hypothyroidism, unspecified; G43.909 Migraine, unspecified, not intractable, without status migrainosus; D18.00 Hemangioma unspecified site; Z85.828 Personal history of other malignant neoplasm of skin; Z92.3 Personal history of irradiation; Z90.49 Acquired absence of other specified parts of digestive tract; Z90.710 Acquired absence of both cervix and uterus; Z80.0 Family history of malignant neoplasm of digestive organs; Z79.890 Hormone replacement therapy; Z79.899 Other long term (current) drug therapy; Z88.1 Allergy status to other antibiotic agents
CPT/HCPCS: 77001; 36561; C1788; J2250; J1644; J1642; J2405; J0690; J2001; J3010; J1885; J2704

== ENCOUNTER 2024-01-22 13:08 | Observation (INO) | payer MEDICARE, BC ==
--- NOTE | 2024-01-22 14:25 | ED ---
General Adult HPI - General Source: patient, RN notes reviewed, old records reviewed Mode of arrival: wheelchair Limitations: no limitations <Jim Valderrama - Last Filed: 01/22/24 14:20> <Lizy Gardner - Last Filed: 01/24/24 08:26> - General Chief complaint: Shortness of Breath Stated complaint: chest pain Time Seen by Provider: 01/22/24 14:00 - History of Present Illness Initial comments: Patient is a 68-year-old female presents emergency department complaining of dyspnea. Chief complaint was chest pain but states she had chest pain 1 time last week. Does have a history of breast cancer currently on chemotherapy. Follows up with Dr. Hernandes. Also has a history of hypertension. Endorses worsening shortness of breath particular with exertion over the last 1 to 2 weeks. Has chronic lower extremity edema which is on worse from baseline. Denies orthopnea or PND. Denies any significant productive cough but is having a nonproductive cough. Denies any fevers or chills. No other acute complaints. Had a one-time chest pain episode last week which resolved on its own and lasted moments. Resents for further evaluation at this time. Was sent in by her oncologist Dr. Hernandes. No history of blood clots. Is not on blood thinners. (Jim Valderrama) - Related Data Home Medications Medication Instructions Recorded Confirmed Levothyroxine Sodium [Synthroid] 175 mcg PO HS 10/15/23 01/22/24 Venlafaxine HCl ER [Effexor Xr] 75 mg PO HS 10/15/23 01/22/24 Acetaminophen [Tylenol Extra 500 - 1,000 mg PO Q4-6H PRN 11/25/23 01/22/24 Strength] Naproxen Sodium [Aleve] 220 - 440 mg PO Q8H PRN 01/22/24 01/22/24 Allergies Allergy/AdvReac Type Severity Reaction Status Date / Time cephalexin monohydrate AdvReac Nausea & Verified 01/22/24 16:33 [From Keflex] Vomiting propoxyphene HCl AdvReac Nausea & Verified 01/22/24 16:33 [From Darvon] Vomiting Review of Systems ROS Other: All systems not noted in ROS Statement are negative. <Jim Valderrama - Last Filed: 01/22/24 14:20> ROS Other: All systems not noted in ROS Statement are negative. <Lizy Gardner - Last Filed: 01/24/24 08:26> ROS Statement: Those systems with pertinent positive or pertinent negative responses have been documented in the HPI. Review of Systems: CONST: Denies fever EYES: Denies blurry vision ENT: Denies nasal congestion C/V: Denies Chest pain RESP: Endorses shortness of breath GI: Denies abdominal pain : Denies dysuria SKIN: Denies rash. MSK: Denies joint pain. NEURO: Denies headache (Jim Valderrama) Past Medical History Past Medical History: Cancer, Diabetes Mellitus, GERD/Reflux, Hearing Disorder / Deafness, Thyroid Disorder Additional Past Medical History / Comment(s): Current left breast cancer. Diet Controlled Diabetes. Was to have PET Scan recently - cancelled due to high blood sugar of 331. Vertigo. Hx skin cancer in 2017. Hx left breast cancer in 1999. Migraines. Hemangioma, dizziness. Hard of hearing. History of Any Multi-Drug Resistant Organisms: None Reported Past Surgical History: Cholecystectomy, Hysterectomy, Tonsillectomy Additional Past Surgical History / Comment(s): Thyroidectomy for nodules, skin cancer removed, left breast lumpectomy(chemo and radiation). Past Anesthesia/Blood Transfusion Reactions: Motion Sickness, Postoperative Nausea & Vomiting (PONV) Additional Past Anesthesia/Blood Transfusion Reaction / Comment(s): Vertigo. Past Psychological History: No Psychological Hx Reported Smoking Status: Never smoker Past Alcohol Use History: None Reported Past Drug Use History: None Reported - Past Family History Mother Family Medical History: Cancer Additional Family Medical History / Comment(s): Sarcoma. Father Family Medical History: Cancer Additional Family Medical History / Comment(s): Colon cancer. <Jim Valderrama - Last Filed: 01/22/24 14:20> General Exam Limitations: no limitations <Jim Valderrama - Last Filed: 01/22/24 14:20> - General Exam Comments Initial Comments: General: Appears in no acute distress.. Afebrile. Appears anxious. HEAD: Normal with no signs of head trauma. EYES: PERRLA, EOMI, conjunctiva normal, no discharge. ENT: Hearing grossly intact, normal oropharynx. RESPIRATORY: Mild hypoxia on room air. C/V: Tachycardic. S1 and S2 auscultated, symmetric lower extremity pitting edema, peripheral pulses 2+ and intact throughout ABD: Abd is soft, nontender, nondistended EXT: Normal range of motion, no obvious deformity SKIN: No rashes or lesions observed on exposed skin. NEURO: Alert and oriented x 4. (Jim Valderrama) Course Vital Signs 01/22/24 01/22/24 01/22/24 13:15 14:45 20:56 Temperature 97.8 F Pulse Rate 115 H 108 H 112 H Respiratory 24 20 20 Rate Blood Pressure 111/70 134/106 127/92 O2 Sat by Pulse 91 L 97 Oximetry Medical Decision Making - EKG Data -: EKG Interpreted by Me <Jim Valderrama - Last Filed: 01/22/24 14:20> - Lab Data Result diagrams: 01/23/24 07:13 01/23/24 07:13 <Lizy Gardner - Last Filed: 01/24/24 08:26> - Medical Decision Making Was pt. sent in by a medical professional or institution (, PA, ANODE MACHINE OPERATOR, urgent care, hospital, or penitentiary...) When possible be specific @ -Sent by oncologist Dr. Hernandes Did you speak to anyone other than the patient for history (EMS, parent, family, police, friend...)? What history was obtained from this source @ -No Did you review nursing and triage notes (agree or disagree)? Why? @ -I reviewed and agree with nursing and triage notes Were old charts reviewed (outside hosp., previous admission, EMS record, old EKG, old radiological studies, urgent care reports/EKG's, penitentiary records)? Report findings @ -Old charts reviewed Differential Diagnosis (chest pain, altered mental status, abdominal pain women, abdominal pain men, vaginal bleeding, weakness, fever, dyspnea, syncope, headache, dizziness, GI bleed, back pain, seizure, CVA, palpatations, mental health, musculoskeletal)? @ -Differential Dyspnea: Coronary syndrome, arrhythmia, tamponade, asthma, COPD, pulmonary embolism, pneumonia, pneumothorax, pulmonary effusion, anaphylaxis, diabetic ketoacidosis, flailed chest, pulmonary contusion, diaphragmatic rupture, anemia, alondra romuscular, this is not meant to be an all-inclusive list. EKG interpreted by me (3pts min.). @ -As above X-rays interpreted by me (1pt min.). @ -Pending CT interpreted by me (1pt min.). @ -Pending U/S interpreted by me (1pt. min.). @ -None done What testing was considered but not performed or refused? (CT, X-rays, U/S, labs)? Why? @ -None What meds were considered but not given or refused? Why? @ -None Did you discuss the management of the patient with other professionals (professionals i.e. , PA, ANODE MACHINE OPERATOR, lab, RT, psych nurse, director social, farmworkers, teacher, disability liaison officer, case management director)? Give summary @ -No Was smoking cessation discussed for >3mins.? @ -No Was critical care preformed (if so, how long)? @ -No Were there social determinants of health that impacted care today? How? (Homelessness, low income, unemployed, alcoholism, drug addiction, transportation, low edu. Level, literacy, decrease access to med. care, detention, rehab)? @ -No Was there de-escalation of care discussed even if they declined (Discuss DNR or withdrawal of care, Hospice)? DNR status @ -No What co-morbidities impacted this encounter? (DM, HTN, Smoking, COPD, CAD, Cancer, CVA, ARF, Chemo, Hep., AIDS, mental health diagnosis, sleep apnea, morbid obesity)? @ -Cancer on chemotherapy Was patient admitted / discharged? Hospital course, mention meds given and route, prescriptions, significant lab abnormalities, going to OR and other pertinent info. @ -Based on the patient's presentation and physical exam, presents for dyspnea in the setting of cancer on chemo. We will obtain cardiopulmonary workup. Patient will be placed on the as needed oxygen. Patient was in agreement this plan. Vital signs remarkable for mild hypoxia and tachycardia. Workup is pending at this time. EKG shows no signs of acute ischemia. Patient signed out to Dr. Gardner pending results of workup. Undiagnosed new problem with uncertain prognosis? @ -No Drug Therapy requiring intensive monitoring for toxicity (Heparin, Nitro, Insulin, Cardizem)? @ -No Were any procedures done? @ -No (Jim Valderrama) Was patient admitted / discharged? Hospital course, mention meds given and route, prescriptions, significant lab abnormalities, going to OR and other pertinent info. @ -Patient signed out to me from Dr. Valderrama pending CT. Results of CT laboratory studies are discussed with the patient. She still remains tachycardic. She is hyponatremic, hypokalemic and hypomagnesemic. Because of her abnormal electrolytes I did recommend admission. Patient was agreeable. Spoke with Dr. Hawthorne for the admission. Oncology will be placed on consult Undiagnosed new problem with uncertain prognosis? @ -Yes Drug Therapy requiring intensive monitoring for toxicity (Heparin, Nitro, Insu cali, Cardizem)? @ -No Were any procedures done? @ -No Diagnosis/symptom? @ -Acute exertional dyspnea, acute Tachycardia, acute hypomagnesemia, acute hyponatremia, acute hypokalemia, active breast cancer on chemo Acute, or Chronic, or Acute on Chronic? @ -Acute Uncomplicated (without systemic symptoms) or Complicated (systemic symptoms)? @ -Complicated Side effects of treatment? @ -No Exacerbation, Progression, or Severe Exacerbation? @ -No Poses a threat to life or bodily function? How? (Chest pain, [place], [place], pneumonia, PE, COPD, DKA, ARF, appy, cholecystitis, CVA, Diverticulitis, Homicidal, Suicidal, threat to staff... and all critical care pts) @ -No (Lizy Gardner) - Lab Data Lab Results 01/22/24 01/22/24 01/22/24 Range/Units 14:11 14:11 14:11 WBC 4.2 (3.8-10.6) k/uL RBC 3.89 (3.80-5.40) m/uL Hgb 11.6 (11.4-16.0) gm/dL Hct 32.5 L (34.0-46.0) % MCV 83.5 (80.0-100.0) fL MCH 29.9 (25.0-35.0) pg MCHC 35.8 (31.0-37.0) g/dL RDW 14.4 (11.5-15.5) % Plt Count 207 (150-450) k/uL MPV 8.3 Neutrophils % 56 % Lymphocytes % 33 % Monocytes % 7 % Eosinophils % 1 % Basophils % 0 % Neutrophils # 2.3 (1.3-7.7) k/uL Lymphocytes # 1.4 (1.0-4.8) k/uL Monocytes # 0.3 (0-1.0) k/uL Eosinophils # 0.1 (0-0.7) k/uL Basophils # 0.0 (0-0.2) k/uL PT 11.3 (10.0-12.5) sec INR 1.0 (<1.2) APTT 21.9 L (22.0-30.0) sec Sodium 133 L (137-145) mmol/L Potassium 3.3 L (3.5-5.1) mmol/L Chloride 103 (98-107) mmol/L Carbon Dioxide 19 L (22-30) mmol/L Anion Gap 11 mmol/L BUN 30 H (7-17) mg/dL Creatinine 1.00 (0.52-1.04) mg/dL Est GFR (CKD-EPI)AfAm 67 (>60 ml/min/1.73 sqM) Est GFR (CKD-EPI)NonAf 58 (>60 ml/min/1.73 sqM) Glucose 304 H (74-99) mg/dL Plasma Lactic Acid Víctor (0.7-2.0) mmol/L Calcium 8.1 L (8.4-10.2) mg/dL Magnesium 1.0 L (1.6-2.3) mg/dL Total Bilirubin 0.9 (0.2-1.3) mg/dL AST 19 (14-36) U/L ALT 9 (4-34) U/L Alkaline Phosphatase 114 (38-126) U/L Troponin I (0.000-0.034) ng/mL NT-Pro-B Natriuret Pep 359 pg/mL Total Protein 5.5 L (6.3-8.2) g/dL Albumin 3.2 L (3.5-5.0) g/dL 01/22/24 01/22/24 Range/Units 14:11 14:11 WBC (3.8-10.6) k/uL RBC (3.80-5.40) m/uL Hgb (11.4-16.0) gm/dL Hct (34.0-46.0) % MCV (80.0-100.0) fL MCH (25.0-35.0) pg MCHC (31.0-37.0) g/dL RDW (11.5-15.5) % Plt Count (150-450) k/uL MPV Neutrophils % % Lymphocytes % % Monocytes % % Eosinophils % % Basophils % % Neutrophils # (1.3-7.7) k/uL Lymphocytes # (1.0-4.8) k/uL Monocytes # (0-1.0) k/uL Eosinophils # (0-0.7) k/uL Basophils # (0-0.2) k/uL PT (10.0-12.5) sec INR (<1.2) APTT (22.0-30.0) sec Sodium (137-145) mmol/L Potassium (3.5-5.1) mmol/L Chloride (98-107) mmol/L Carbon Dioxide (22-30) mmol/L Anion Gap mmol/L BUN (7-17) mg/dL Creatinine (0.52-1.04) mg/dL Est GFR (CKD-EPI)AfAm (>60 ml/min/1.73 sqM) Est GFR (CKD-EPI)NonAf (>60 ml/min/1.73 sqM) Glucose (74-99) mg/dL Plasma Lactic Acid Víctor 1.6 (0.7-2.0) mmol/L Calcium (8.4-10.2) mg/dL Magnesium (1.6-2.3) mg/dL Total Bilirubin (0.2-1.3) mg/dL AST (14-36) U/L ALT (4-34) U/L Alkaline Phosphatase (38-126) U/L Troponin I <0.012 (0.000-0.034) ng/mL NT-Pro-B Natriuret Pep pg/mL Total Protein (6.3-8.2) g/dL Albumin (3.5-5.0) g/dL - EKG Data EKG Comments: 12-lead Electrocardiogram Interpretation Note EKG was reviewed and interpreted by myself. 12-lead ECG performed at 1345 is interpreted by me as revealing atrial tachycardia at a rate of 114 beats per minute. [place] is normal. [place] interval is 226 ms, QRS duration is 86 ms, QTc is 433 ms.. There were no ST or T wave abnormalities to suggest myocardial ischemia or injury. R wave progression across the precordium was delayed. By my interpretation this EKG is non-diagnostic for acute ischemia. (Jim Valderrama) Disposition <Jim Valderrama - Last Filed: 01/22/24 14:20> Is patient prescribed a controlled substance at d/c from ED?: No Time of Disposition: 19:50 Decision to Admit Reason: Admit from EC Decision Date: 01/22/24 Decision Time: 19:51 <Lizy Gardner - Last Filed: 01/24/24 08:26> Clinical Impression: Breast cancer, left, Tachycardia, Hypokalemia, Hypomagnesemia, Chemotherapy adverse reaction Disposition: ADMITTED IP TO THIS HOSP Condition: Stable
--- NOTE | 2024-01-22 15:29 | XR ---
EXAMINATION TYPE: XR chest 1V portable DATE OF EXAM: 01/22/2024 COMPARISON: HISTORY: Shortness of breath TECHNIQUE: Single frontal view of the chest is obtained. FINDINGS: There is no focal air space opacity, pleural effusion, or pneumothorax seen. The cardiac silhouette size is within normal limits. The osseous structures are intact. Right-sided Mediport ca theter seen overlying the SVC. Osteopenia. Bilateral AC joint arthropathy. IMPRESSION: No acute process.
[2024-01-22 15:50] LABS: Basophils % (A) 0 %; Eosinophils # (A) 0.1 k/uL (0-0.7); Eosinophils % (A) 1 %; HCT 32.5 % (34.0-46.0); HGB 11.6 gm/dL (11.4-16.0); Lymphocytes # (A) 1.4 k/uL (1.0-4.8); Lymphocytes % (A) 33 %; MCH 29.9 pg (25.0-35.0); MCHC 35.8 g/dL (31.0-37.0); MCV 83.5 fL (80.0-100.0); Mean Platelet Volume 8.3; Monocytes # (A) 0.3 k/uL (0-1.0); Monocytes % (A) 7 %; Neutrophils # (A) 2.3 k/uL (1.3-7.7); Neutrophils % (A) 56 %; Platelet Count 207 k/uL (150-450); RBC 3.89 m/uL (3.80-5.40); RDW 14.4 % (11.5-15.5); WBC 4.2 k/uL (3.8-10.6)
[2024-01-22 16:05] LABS: Partial Thromboplastin Time 21.9 sec (22.0-30.0); Prothrombin Time 11.3 sec (10.0-12.5)
[2024-01-22 16:17] LABS: ALT 9 U/L (4-34); African American GFR (CKD) 67 (>60 ml/min/1.73 sqM); Albumin 3.2 g/dL (3.5-5.0); Anion Gap 11 mmol/L; Blood Urea Nitrogen 30 mg/dL (7-17); Calcium 8.1 mg/dL (8.4-10.2); Carbon Dioxide 19 mmol/L (22-30); Chloride 103 mmol/L (98-107); Glucose 304 mg/dL (74-99); Non-African American GFR(CKD) 58 (>60 ml/min/1.73 sqM); Sodium 133 mmol/L (137-145); Total Bilirubin 0.9 mg/dL (0.2-1.3); Total Protein 5.5 g/dL (6.3-8.2)
[2024-01-22 16:21] LABS: NT-Pro-B-Type Natriuretic Pept 359 pg/mL
[2024-01-22 16:40] LABS: AST 19 U/L (14-36); Potassium 3.3 mmol/L (3.5-5.1)
[2024-01-22 16:41] LABS: Alkaline Phosphatase 114 U/L (38-126)
[2024-01-22] MEDS ORDERED: BENZOCAINE/MENTHOL LOZENG 1 EACH LOZENGE MUCOUS MEM PRN (16:45)
--- NOTE | 2024-01-22 18:54 | CT ---
EXAMINATION TYPE: CT chest angio for PE DATE OF EXAM: 01/22/2024 COMPARISON: Facial HISTORY: dyspnea CT DLP: 405.3 mGycm. Automated Exposure Control for Dose Reduction was Utilized. CONTRAST: CTA scan of the thorax is performed with IV Contrast, patient injected with 80ml mL of Isov ue 370. MIP Images are created on CT scanner and reviewed. 3D reconstructed images are created on an independent workstation and reviewed. FINDINGS: LUNGS/PLEURAL SPACES: The lungs are negative for acute process. Right upper lobe anterior segment 1 c m ill-defined opacity in the subpleural position as seen on axial image 53 of 160. Follow-up CT can b e prove benignity. There is no pleural effusion or pneumothorax seen. The tracheobronchial tree is patent. MEDIASTINUM: There is moderately satisfactory enhancement of the pulmonary artery and its branches, w ith no CT evidence for pulmonary embolism. There is no acute aortic process. Prominent coronary ches t lesions are noted. No cardiomegaly or pericardial effusion. There are no greater than 1 cm hilar or mediastinal lymph nodes. OTHER: Asymmetric breast parenchyma noted with innumerable tiny breast parenchymal calcifications on the left and only a few on the visualized right. Multifocal hepatic and renal cysts noted. IMPRESSION: Negative for pulmonary embolism or acute aortic process. Prominent coronary calcifications. Incidental findings as noted.
[2024-01-22] MEDS ORDERED: NALOXONE 0.4 MG/ML 1 ML VIAL IV PRN (19:51)
[2024-01-22] MEDS: SODIUM CHLORIDE 0.9% 1,000 ML IV ONE (20:15)
[2024-01-22] MEDS: POTASSIUM CHLORIDE ER 20 MEQ TAB.ER PO STA (20:16)
[2024-01-22] MEDS: SODIUM CHLORIDE 0.9% 1,000 ML IV SCH (20:16)
[2024-01-22] MEDS: MAGNESIUM SULFATE-D5W PMX 1 GM in DEXTROSE/WATER 1 100ML.BAG IVPB SCH (20:35)
[2024-01-22 20:36] LABS: Appearance,Urine Cloudy (Clear); Bacteria,Urine Rare /hpf; Bilirubin,Urine Negative (Negative); Blood,Urine Small (Negative); Color,Urine Yellow; Glucose,Urine (UA) 4+ (Negative); Ketones,Urine 1+ (Negative); Leukocyte Esterase,Urine Large (Negative); Mucus,Urine Rare /hpf; Nitrite,Urine Negative (Negative); Protein,Urine 2+ (Negative); RBC,Urine 62 /hpf (0-5); Squamous Epithelial Cell,Urine 29 /hpf (0-4); Urobilinogen,Urine <2.0 mg/dL (<2.0); WBC,Urine 104 /hpf (0-5)
[2024-01-22 20:39] LABS: Specific Gravity,Urine >1.050 (1.001-1.035)
[2024-01-23 00:03] LABS: Glucose,Whole Blood 372 mg/dL (70-110)
[2024-01-23] MEDS ORDERED: DEXTROSE 50% SYRINGE 50 ML IVP PRN ×2 (00:05)
[2024-01-23] MEDS: INSULIN ASPART (NovoLOG) 100 UNIT/ML VIAL SQ SCH (00:18)
--- NOTE | 2024-01-23 03:40 | P.HPIM ---
History of Present Illness H&P Date: 01/22/24 Chief Complaint: Generalized weakness 68-year-old female with history of recurrent breast cancer on chemotherapy Patient coming in for evaluation due to generalized weakness she reports that for the past week she has been having some tingling sensation across her chest with exertional dyspnea however she was taking it easy and blaming it on her most recent chemotherapy session 1 week ago. She denies any associated nausea or vomiting denies any fevers chills denies any abdominal pain or coughing denies any urinary changes denies any bleeding. She reports couple days of diarrhea however this has been resolved over the past 2 days She initially was diagnosed with breast cancer about 20 years ago and recently she was diagnosed with recurrent breast cancer and currently on chemotherapy She denies any recent travel or hospital stay denies any history of blood clots she does report history of meningioma in the brain While in the ED she was found to be tachycardic and hypoxic with electrolyte imbalance admitted for further care Patient denies tobacco smoking illicit drugs or heavy alcohol review of systems Pertinent positives as noted in HPI. All other systems were reviewed and are negative on exam Constitutional: No acute distress, conversant, pleasant Eyes: Anicteric sclerae, moist conjunctiva, Pupils equal round reactive to light ENMT: NC/AT Oropharynx clear, no erythema, or exudates Neck: Supple, no masses, or JVD No carotid bruits No thyromegaly Lungs: Clear to auscultation Clear to percussion Normal respiratory effort, no accessory muscle use Cardiovascular: Heart regular in rate and rhythm, No murmurs, gallops, or rubs No peripheral edema Abdominal: Soft Nontender, no guarding, rebound or rigidity Abdomen moving with respiration Normoactive bowel sounds No hepatomegaly, No splenomegaly No palpable mass No abdominal wall hernia noted Skin: Right Mediport on the chest no surrounding erythema or induration no purulent discharge Extremities: No digital cyanosis No clubbing Pedal pulses intact and symmetrical Radial pulses intact and symmetrical No calf tenderness Psychiatric: Alert and oriented to person, place and time Appropriate affect fair judgement Neuro Muscles Strength 5/5 in all 4 extremities Sensation to light touch grossly present throughout Cranial nerves II-XII grossly intact Past Medical History Past Medical History: Cancer, Diabetes Mellitus, GERD/Reflux, Hearing Disorder / Deafness, Thyroid Disorder Additional Past Medical History / Comment(s): Current left breast cancer. Diet Controlled Diabetes. Was to have PET Scan recently - cancelled due to high blood sugar of 331. Vertigo. Hx skin cancer in 2017. Hx left breast cancer in 1999. Mi graines. Hemangioma, dizziness. Hard of hearing. History of Any Multi-Drug Resistant Organisms: None Reported Past Surgical History: Cholecystectomy, Hysterectomy, Tonsillectomy Additional Past Surgical History / Comment(s): Thyroidectomy for nodules, skin cancer removed, left breast lumpectomy(chemo and radiation). Past Anesthesia/Blood Transfusion Reactions: Motion Sickness, Postoperative Nausea & Vomiting (PONV) Additional Past Anesthesia/Blood Transfusion Reaction / Comment(s): Vertigo. Past Psychological History: No Psychological Hx Reported Smoking Status: Never smoker Past Alcohol Use History: None Reported Past Drug Use History: None Reported - Past Family History Mother Family Medical History: Cancer Additional Family Medical History / Comment(s): Sarcoma. Father Family Medical History: Cancer Additional Family Medical History / Comment(s): Colon cancer. Medications and Allergies Home Medications Medication Instructions Recorded Confirmed Type Levothyroxine Sodium [Synthroid] 175 mcg PO HS 10/15/23 01/22/24 History Venlafaxine HCl ER [Effexor Xr] 75 mg PO HS 10/15/23 01/22/24 History Acetaminophen [Tylenol Extra 500 - 1,000 mg PO Q4-6H PRN 11/25/23 01/22/24 History Strength] Naproxen Sodium [Aleve] 220 - 440 mg PO Q8H PRN 01/22/24 01/22/24 History Allergies Allergy/AdvReac Type Severity Reaction Status Date / Time cephalexin monohydrate AdvReac Nausea & Verified 01/22/24 16:33 [From Keflex] Vomiting propoxyphene HCl AdvReac Nausea & Verified 01/22/24 16:33 [From Darvon] Vomiting Physical Exam Vitals: Vital Signs Temp Pulse Resp BP Pulse Ox 01/22/24 14:45 108 H 20 134/106 01/22/24 13:15 97.8 F 115 H 24 111/70 91 L Intake and Output 01/22/24 01/22/24 01/22/24 06:59 14:59 22:59 Other: Weight 96.615 kg Results CBC & Chem 7: 01/22/24 14:11 01/22/24 14:11 Labs: Abnormal Lab Results - Last 24 Hours (Table) 01/22/24 01/22/24 01/22/24 Range/Units 14:11 14:11 14:11 Hct 32.5 L (34.0-46.0) % APTT 21.9 L (22.0-30.0) sec Sodium 133 L (137-145) mmol/L Potassium 3.3 L (3.5-5.1) mmol/L Carbon Dioxide 19 L (22-30) mmol/L BUN 30 H (7-17) mg/dL Glucose 304 H (74-99) mg/dL Calcium 8.1 L (8.4-10.2) mg/dL Magnesium 1.0 L (1.6-2.3) mg/dL Total Protein 5.5 L (6.3-8.2) g/dL Albumin 3.2 L (3.5-5.0) g/dL Assessment and Plan Assessment: 68-year-old female with recurrent breast cancer currently on chemotherapy coming in for generalized weakness and not feeling well reports some falls recently over the past few months. I discussed case with ED doctor and accepted the admission for electrolyte imbalance with dehydration with anticipated length of stay less than 2 midnights Electrolyte imbalance hypomagnesemia and hypokalemia Replace and follow-up levels Dehydration BUN 30 creatinine 1 sodium 133 IV fluid hydration normal saline status post 1 L bolus Continue with normal saline 130 cc/h Supportive care Fall precautions PT evaluation Acute respiratory viral panel negative for COVID influenza and RSV CT angio of the chest negative for acute PE Lactic acid 1.6 unremarkable White count 4.2 hemoglobin 11.6 denies any bleeding Continue to monitor Full code DVT prophylaxis Lovenox subcu 40 mg daily Diabetes mellitus Insulin sliding scale
[2024-01-23 07:10] LABS: Glucose,Whole Blood 147 mg/dL (70-110)
[2024-01-23] MEDS: ENOXAPARIN 40 MG/0.4 ML SYRINGE SQ SCH (08:14)
[2024-01-23 11:08] LABS: ALT 5 U/L (8-44); AST 9 U/L (13-35); Albumin 3.2 g/dL (3.8-4.9); Albumin/Globulin Ratio 1.78 Ratio (1.60-3.17); Alkaline Phosphatase 111 U/L (41-126); BUN/Creat Ratio 24.22 Ratio (12.00-20.00); Blood Urea Nitrogen 21.8 mg/dL (9.0-27.0); Calcium 7.9 mg/dL (8.7-10.3); Carbon Dioxide 20.7 mmol/L (21.6-31.8); Chloride 105 mmol/L (96-109); Globulin 1.8 g/dL (1.6-3.3); Glucose 139 mg/dL (70-110); Magnesium 1.8 mg/dL (1.5-2.4); Potassium 3.5 mmol/L (3.5-5.5); Sodium 140 mmol/L (135-145); Total Bilirubin 0.2 mg/dL (0.3-1.2)
--- NOTE | 2024-01-23 11:51 | P.PN ---
Subjective Progress Note Date: 01/23/24 Hospital course: Patient is a pleasant 68-year-old female with a past medical history of hypothyroidism, GERD, migraines, hemangioma, and breast cancer status post left breast lumpectomy followed by chemo and radiation. She is currently undergoing chemotherapy treatment and presented to the emergency department on 01/22/2024 secondary to generalized weakness with exertional dyspnea. Last chemotherapy session was 1 week ago. Upon arrival to the emergency department patient underw ent full evaluation. Vital signs upon arrival show blood pressure 111/70, heart rate 115, respiratory rate 24, temp 97.8 F, and SpO2 of 91% on room air. EKG completed showing sinus tach at 114 bpm with a first-degree AV block with TN interval of 226 ms. Chest x-ray completed negative for acute cardiopulmonary process. CTA completed negative for pulmonary emboli or acute aortic process revealing prominent coronary calcifications and multifocal hepatic and renal cysts. Labs completed and reviewed. CBC unremarkable. Coagulation profile normal findings. BMP revealing pseudohyponatremia with sodium of 133 and blood glucose of 304 with corrected sodium of 136, hypokalemia with potassium of 3.3, hypocarbia with bicarb of 19 and prerenal azotemia with BUN of 30 and creatinine of 1.00. Magnesium was significantly low at 1.0. Liver profile normal findings. Troponin negative at less than 0.012. proBNP 359. Urinalysis was contaminated specimen. Influenza A, influenza B, RSV, and COVID PCR were negative. Patient was admitted under our services with consultation to hematology/oncology. Physical exam: Patient seen and fully evaluated at bedside this morning. She was sitting up on the edge of bed reports feeling slightly better this morning. She reports chronic dizziness/lightheadedness secondary to hemangioma but denies having any headache, changes in vision or hearing, chest pain, palpitations, or shortness of breath at rest. Vital signs reviewed and stable. General: Nontoxic, no distress and appears stated age. Derm: Skin warm and dry, normal coloration for ethnicity. Head: Atraumatic, normocephalic and symmetric. Eyes: EOMs intact, no lid lag, and anicteric sclera Mouth: no lip lesions, mucus membranes moist Cardiovascular: regular rate and rhythm with normal S1S2, no murmur, positive posterior tibial pulses bilaterally, and cap refill < 2 seconds. Lungs: Respirations even, regular, and unlabored on room air. Lungs CTA bilaterally, no rhonchi, no rales, no wheezing, and no accessory muscle usage. Abdominal: soft, nontender to palpation, no guarding, no appreciable organomegaly Ext: ROM intact. No gross muscle atrophy, no edema, no contractures Neuro: Speech clear, face symmetrical and CN II-XII grossly intact with no noted focal neuro deficits Psych: Alert and oriented to person, place, time, and situation. Appropriate and pleasant affect. Assessment and Plan of Care: Generalized weakness status post chemotherapeutic treatment Dehydration with electrolyte imbalances Hypokalemia, resolved Hypomagnesemia, resolved Breast cancer Consult placed hematology/oncology, appreciate recommendations Continue with gentle IV fluid hydration at a decreased rate of 75 cc/h for an additional 24 hours. Continued close monitoring with daily CBC , CMP, and magnesium levels. Telemetry monitoring PT/OT consult Fall precautions Abnormal urinalysis Contaminated specimen order placed for repeat urinalysis with clean-catch technique. Data and imaging reviewed: Vital signs reviewed. Blood pressure 104/66, heart rate 110, respiratory rate 18, temp 98.0 F, and SpO2 of 99% on room air Morning labs reviewed. CBC showing normocytic anemia with hemoglobin of 10.9. BMP showing mild metabolic acidosis with chloride of 105, bicarb 20.7, and elevated anion gap of 14.30. Hypokalemia resolved with repeat potassium of 3.5. Hypomagnesemia resolved with repeat magnesium of 1.8. CODE STATUS: DNR/DNI DVT prophylaxis: Lovenox Anticipated discharge date: Clinical course to determine Anticipated discharge place: Clinical course to determine Patient was seen independently by Nurse Pracitioner. This document was prepared using [employer] dictation software. Please allow for errors in appliance repairer, while rare they do occur. I reviewed the documentation as provided by the RUSLAN above, who is the original author of this note. I agree with the documented assessment and plan, with the following changes: none Objective - Vital Signs Vital signs: Vital Signs Temp 98.0 F 01/23/24 07:10 Pulse 110 H 01/23/24 07:10 Resp 18 01/23/24 07:10 BP 104/66 01/23/24 07:10 Pulse Ox 99 01/23/24 07:10 FiO2 Intake & Output 01/22/24 01/23/24 01/23/24 18:59 06:59 18:59 Weight 96.615 kg 96.615 kg Other: Voiding Method Toilet # Voids 3 - Labs CBC & Chem 7: 01/23/24 07:13 01/23/24 07:13 Labs: Abnormal Lab Results - Last 24 Hours (Table) 01/22/24 01/22/24 01/22/24 Range/Units 14:11 14:11 14:11 Hct 32.5 L (34.0-46.0) % APTT 21.9 L (22.0-30.0) sec Sodium 133 L (137-145) mmol/L Potassium 3.3 L (3.5-5.1) mmol/L Carbon Dioxide 19 L (22-30) mmol/L BUN 30 H (7-17) mg/dL Glucose 304 H (74-99) mg/dL POC Glucose (mg/dL) (70-110) mg/dL Calcium 8.1 L (8.4-10.2) mg/dL Magnesium 1.0 L (1.6-2.3) mg/dL Total Protein 5.5 L (6.3-8.2) g/dL Albumin 3.2 L (3.5-5.0) g/dL Urine Appearance (Clear) Ur Specific [place] (1.001-1.035) Urine Protein (Negative) Urine Glucose (UA) (Negative) Urine Ketones (Negative) Urine Blood (Negative) Ur Leukocyte Esterase (Negative) Urine RBC (0-5) /hpf Urine WBC (0-5) /hpf Ur Squamous Epith Cells (0-4) /hpf Urine Bacteria (None) /hpf Urine Mucus (None) /hpf 01/22/24 01/22/24 01/23/24 Range/Units 20:16 23:43 07:09 Hct (34.0-46.0) % APTT (22.0-30.0) sec Sodium (137-145) mmol/L Potassium (3.5-5.1) mmol/L Carbon Dioxide (22-30) mmol/L BUN (7-17) mg/dL Glucose (74-99) mg/dL POC Glucose (mg/dL) 372 H 147 H (70-110) mg/dL Calcium (8.4-10.2) mg/dL Magnesium (1.6-2.3) mg/dL Total Protein (6.3-8.2) g/dL Albumin (3.5-5.0) g/dL Urine Appearance Cloudy H (Clear) Ur Specific [place] >1.050 H (1.001-1.035) Urine Protein 2+ H (Negative) Urine Glucose (UA) 4+ H (Negative) Urine Ketones 1+ H (Negative) Urine Blood Small H (Negative) Ur Leukocyte Esterase Large H (Negative) Urine RBC 62 H (0-5) /hpf Urine WBC 104 H (0-5) /hpf Ur Squamous Epith Cells 29 H (0-4) /hpf Urine Bacteria Rare H (None) /hpf Urine Mucus Rare H (None) /hpf
[2024-01-23 12:08] LABS: Glucose,Whole Blood 176 mg/dL (70-110)
[2024-01-23 12:11] LABS: Basophils # (A) 0.06 X 10*3/uL (0.00-0.10); Basophils % (A) 1.2 %; Eosinophils # (A) 0.07 X 10*3/uL (0.04-0.35); Eosinophils % (A) 1.4 %; HCT 31.1 % (37.2-46.3); HGB 10.9 g/dL (12.0-15.0); Lymphocytes # (A) 1.57 X 10*3/uL (0.90-5.00); Lymphocytes % (A) 31.7 %; MCH 29.2 pg (27.0-32.0); MCV 83.4 FL (80.0-97.0); Monocytes # (A) 0.66 X 10*3/uL (0.20-1.00); Monocytes % (A) 13.3 %; NRBC Per 100 WBC 0 X 10*3/uL (0.00-0.01); Neutrophils # (A) 2.46 X 10*3/uL (1.80-7.70); Neutrophils % (A) 49.6 %; Platelet Count 228 X 10*3/uL (140-440); RBC 3.73 X 10*6/uL (4.10-5.20); RBC Morphology Normal (Normal); RDW 13.6 % (11.5-14.5); WBC 4.96 X 10*3/uL (4.50-10.00)
--- NOTE | 2024-01-23 14:57 | P.CONS ---
History of Present Illness - Reason for Consult Consult date: 01/23/24 Triple negative breast cancer on chemotherapy Requesting physician: Lizy Gardner - Chief Complaint Shortness of breath - History of Present Illness Ms. Benigno Wong is a 68-year-old female patient who follows with Dr. Lennox Real, since 2011 for a family history of malignancy, mother from metastatic sarcoma, father with colon cancer. She was followed through the years with routine cancer screenings as indicated, 2016 basal cell carcinoma resected from the face, did well otherwise unfortunately until 2022, she had lt nipple drainage, mammogram was delayed but, ultimately 10/27/2023 patient had a left breast biopsy, positive for triple negative invasive ductal carcinoma. Aging PET scan was negative for any metastasis. She was started on neoadjuvant carbo, Taxol and Keytruda. When she was seen at the end of December she had complaints of dizziness, she was scheduled for a stat MRI of the brain but unfortunately she could not make that appointment, it was rescheduled and she could not make that appointment. She is currently admitted with complaints of dyspnea, dizziness, family reporting that she has fallen at home. Patient denies headaches, vision changes, numbness or tingling, oral irritation, nausea or vomiting but, appetite is poor. Reports that she has some drainage and bleeding from the left breast area, no new or unusual pain, denies abdominal complaints, no acute changes in bowel or bladder habits. When asked about her falls, latasha nt states that she bends over and loses her balance. Laboratory and checks on admission show a mild anemia of 10.9 increased anion gap blood sugar was 372, UA suspicious, flu, RSV and COVID were all negative. She is status post cycle 1 carbo, Taxol and Keytruda days 1, 8 and 15. She has had days 1 and 8 of cycle 2. Review of Systems 14 point review of systems is negative except as stated in HPI Past Medical History Past Medical History: Cancer, Diabetes Mellitus, GERD/Reflux, Hearing Disorder / Deafness, Thyroid Disorder Additional Past Medical History / Comment(s): Current left breast cancer. Diet Controlled Diabetes. Was to have PET Scan recently - cancelled due to high blood sugar of 331. Vertigo. Hx skin cancer in 2017. Hx left breast cancer in 1999. Migraines. Hemangioma, dizziness. Hard of hearing. History of Any Multi-Drug Resistant Organisms: None Reported Past Surgical History: Cholecystectomy, Hysterectomy, Tonsillectomy Additional Past Surgical History / Comment(s): Thyroidectomy for nodules, skin cancer removed, left breast lumpectomy(chemo and radiation). Past Anesthesia/Blood Transfusion Reactions: Motion Sickness, Postoperative Nausea & Vomiting (PONV) Additional Past Anesthesia/Blood Transfusion Reaction / Comm: Vertigo. Past Psychological History: No Psychological Hx Reported Smoking Status: Never smoker Past Alcohol Use History: None Reported Past Drug Use History: None Reported - Past Family History Mother Family Medical History: Cancer Additional Family Medical History / Comment(s): Sarcoma. Father Family Medical History: Cancer Additional Family Medical History / Comment(s): Colon cancer. Medications and Allergies Home Medications Medication Instructions Recorded Confirmed Type Levothyroxine Sodium [Synthroid] 175 mcg PO HS 10/15/23 01/22/24 History Venlafaxine HCl ER [Effexor Xr] 75 mg PO HS 10/15/23 01/22/24 History Acetaminophen [Tylenol Extra 500 - 1,000 mg PO Q4-6H PRN 11/25/23 01/22/24 History Strength] Naproxen Sodium [Aleve] 220 - 440 mg PO Q8H PRN 01/22/24 01/22/24 History Allergies Allergy/AdvReac Type Severity Reaction Status Date / Time cephalexin monohydrate AdvReac Nausea & Verified 01/22/24 16:33 [From Keflex] Vomiting propoxyphene HCl AdvReac Nausea & Verified 01/22/24 16:33 [From Darvon] Vomiting Physical Exam Vitals: Vital Signs Temp Pulse Pulse Pulse Resp BP BP 01/23/24 07:10 98.0 F 110 H 18 104/66 01/23/24 02:00 97.8 F 67 16 123/58 01/22/24 23:51 98.4 F 104 H 18 132/77 01/22/24 20:56 112 H 20 127/92 01/22/24 14:45 108 H 20 134/106 01/22/24 13:15 97.8 F 115 H 24 111/70 Pulse Ox 01/23/24 07:10 99 01/23/24 02:00 01/22/24 23:51 94 L 01/22/24 20:56 97 01/22/24 14:45 01/22/24 13:15 91 L Intake and Output 01/22/24 01/23/24 01/23/24 22:59 06:59 14:59 Other: Voiding Method Toilet # Voids 3 Weight 96.615 kg - Constitutional General appearance: cooperative, no acute distress, obese - EENT Eyes: anicteric sclerae, edentulous ENT: hearing grossly normal, normal oropharynx - Neck Neck: no lymphadenopathy - Respiratory Respiratory: bilateral: CTA - Cardiovascular Rhythm: regular Heart sounds: normal: S1, S2 Abnormal Heart Sounds: no systolic murmur, no diastolic murmur, no rub, no S3 Gallop, no S4 Gallop, no click, no other leg Peripheral Edema: bilateral: None - Gastrointestinal General gastrointestinal: no absent bowel sounds, no decreased bowel sounds, no distended, no hepatomegaly, no hyperactive bowel sounds, normal bowel sounds, no organomegaly, no rigid, no scaphoid, soft, no splenomegaly, no tenderness, no umbilical hernia, no ventral hernia - Integumentary Left breast wound from malignancy Integumentary: pale - Neurologic Patient does have a known essential tremor in the hands, not worse Neurologic: CNII-XII intact - Musculoskeletal Musculoskeletal: generalized weakness, strength equal bilaterally - Psychiatric Psychiatric: A&O x's 3, appropriate affect, intact judgment & insight Results CBC & Chem 7: 01/23/24 07:13 01/23/24 07:13 Labs: Abnormal Lab Results - Last 24 Hours (Table) 01/22/24 01/22/24 01/22/24 Range/Units 14:11 14:11 14:11 RBC (4.10-5.20) X 10*6/uL Hgb (12.0-15.0) g/dL Hct 32.5 L (34.0-46.0) % Immature Gran # (0.00-0.04) X 10*3/uL APTT 21.9 L (22.0-30.0) sec Sodium 133 L (137-145) mmol/L Potassium 3.3 L (3.5-5.1) mmol/L Carbon Dioxide 19 L (22-30) mmol/L Anion Gap (4.00-12.00) mmol/L BUN 30 H (7-17) mg/dL BUN/Creatinine Ratio (12.00-20.00) Ratio Glucose 304 H (74-99) mg/dL POC Glucose (mg/dL) (70-110) mg/dL Calcium 8.1 L (8.4-10.2) mg/dL Magnesium 1.0 L (1.6-2.3) mg/dL Total Bilirubin (0.3-1.2) mg/dL AST (13-35) U/L ALT (8-44) U/L Total Protein 5.5 L (6.3-8.2) g/dL Albumin 3.2 L (3.5-5.0) g/dL Urine Appearance (Clear) Ur Specific [place] (1.001-1.035) Urine Protein (Negative) Urine Glucose (UA) (Negative) Urine Ketones (Negative) Urine Blood (Negative) Ur Leukocyte Esterase (Negative) Urine RBC (0-5) /hpf Urine WBC (0-5) /hpf Ur Squamous Epith Cells (0-4) /hpf Urine Bacteria (None) /hpf Urine Mucus (None) /hpf 01/22/24 01/22/24 01/23/24 Range/Units 20:16 23:43 07:09 RBC (4.10-5.20) X 10*6/uL Hgb (12.0-15.0) g/dL Hct (34.0-46.0) % Immature Gran # (0.00-0.04) X 10*3/uL APTT (22.0-30.0) sec Sodium (137-145) mmol/L Potassium (3.5-5.1) mmol/L Carbon Dioxide (22-30) mmol/L Anion Gap (4.00-12.00) mmol/L BUN (7-17) mg/dL BUN/Creatinine Ratio (12.00-20.00) Ratio Glucose (74-99) mg/dL POC Glucose (mg/dL) 372 H 147 H (70-110) mg/dL Calcium (8.4-10.2) mg/dL Magnesium (1.6-2.3) mg/dL Total Bilirubin (0.3-1.2) mg/dL AST (13-35) U/L ALT (8-44) U/L Total Protein (6.3-8.2) g/dL Albumin (3.5-5.0) g/dL Urine Appearance Cloudy H (Clear) Ur Specific [place] >1.050 H (1.001-1.035) Urine Protein 2+ H (Negative) Urine Glucose (UA) 4+ H (Negative) Urine Ketones 1+ H (Negative) Urine Blood Small H (Negative) Ur Leukocyte Esterase Large H (Negative) Urine RBC 62 H (0-5) /hpf Urine WBC 104 H (0-5) /hpf Ur Squamous Epith Cells 29 H (0-4) /hpf Urine Bacteria Rare H (None) /hpf Urine Mucus Rare H (None) /hpf 01/23/24 01/23/24 01/23/24 Range/Units 07:13 07:13 12:07 RBC 3.73 L (4.10-5.20) X 10*6/uL Hgb 10.9 L (12.0-15.0) g/dL Hct 31.1 L (34.0-46.0) % Immature Gran # 0.14 H (0.00-0.04) X 10*3/uL APTT (22.0-30.0) sec Sodium (137-145) mmol/L Potassium (3.5-5.1) mmol/L Carbon Dioxide 20.7 L (22-30) mmol/L Anion Gap 14.30 H (4.00-12.00) mmol/L BUN (7-17) mg/dL BUN/Creatinine Ratio 24.22 H (12.00-20.00) Ratio Glucose 139 H (74-99) mg/dL POC Glucose (mg/dL) 176 H (70-110) mg/dL Calcium 7.9 L (8.4-10.2) mg/dL Magnesium (1.6-2.3) mg/dL Total Bilirubin 0.2 L (0.3-1.2) mg/dL AST 9 L (13-35) U/L ALT 5 L (8-44) U/L Total Protein 5.0 L (6.3-8.2) g/dL Albumin 3.2 L (3.5-5.0) g/dL Urine Appearance (Clear) Ur Specific [place] (1.001-1.035) Urine Protein (Negative) Urine Glucose (UA) (Negative) Urine Ketones (Negative) Urine Blood (Negative) Ur Leukocyte Esterase (Negative) Urine RBC (0-5) /hpf Urine WBC (0-5) /hpf Ur Squamous Epith Cells (0-4) /hpf Urine Bacteria (None) /hpf Urine Mucus (None) /hpf Chest x-ray: report reviewed CT scan - chest: report reviewed Assessment and Plan (1) Triple negative malignant neoplasm of breast Current Visit: Yes Status: Acute Priority: High Code(s): C50.919 - MAL IGNANT NEOPLASM OF UNSP SITE OF UNSPECIFIED FEMALE BREAST SNOMED Code(s): 836236424 (2) Chemotherapy adverse reaction Current Visit: Yes Status: Acute Priority: High Code(s): T45.1X5A - ADVERSE EFFECT OF ANTINEOPLASTIC AND IMMUNOSUP DRUGS, INIT SNOMED Code(s): 102118386 (3) Hypokalemia Current Visit: Yes Status: Acute Priority: High Code(s): E87.6 - HYPOKALEMIA SNOMED Code(s): 27763477 (4) Hypomagnesemia Current Visit: Yes Status: Acute Priority: High Code(s): E83.42 - HYPOMAGNESEMIA SNOMED Code(s): 533226771 Plan: Triple negative breast cancer, currently receiving neoadjuvant treatment -Patient is in cycle 2/4. -Treatment will be held next week. Follow-up has been placed in the discharge plan for the end of next week to reassess how patient is doing before proceeding with any further treatment Dizziness and falls -Patient has had complaints of dizziness in December, this has now progressed to falls. MRI of the brain was scheduled, she has missed 2 appointments for the s donte. This has been ordered urgently. Abnormal electrolytes -Likely related to poor appetite, poor oral intake -Electrolytes are being replaced per protocol -Patient is receiving hydration Doctor attests: I performed a history and physical examination of this patient, developed impression and plan of care. Discussed with dictator. I agree with dictators note, documented as a scribe.
[2024-01-23 15:16] LABS: Appearance,Urine Cloudy (Clear); Bacteria,Urine Rare /hpf; Bilirubin,Urine Negative (Negative); Blood,Urine Moderate (Negative); Color,Urine Light Yellow; Glucose,Urine (UA) 3+ (Negative); Hyaline Casts,Urine 1 /lpf (0-2); Leukocyte Esterase,Urine Large (Negative); Mucus,Urine Occasional /hpf; Nitrite,Urine Negative (Negative); Protein,Urine 1+ (Negative); RBC,Urine 137 /hpf (0-5); Specific Gravity,Urine 1.024 (1.001-1.035); Squamous Epithelial Cell,Urine 10 /hpf (0-4); Urobilinogen,Urine <2.0 mg/dL (<2.0); WBC,Urine 93 /hpf (0-5)
[2024-01-23 15:22] LABS: Ketones,Urine 2+ (Negative)
[2024-01-23 17:00] LABS: Glucose,Whole Blood 124 mg/dL (70-110)
[2024-01-23 20:20] LABS: Glucose,Whole Blood 154 mg/dL (70-110)
[2024-01-23] MEDS: VENLAFAXINE HCL ER 75 MG CAP PO SCH (20:56)
[2024-01-23] MEDS: LEVOTHYROXINE 88 MCG TAB PO SCH (20:56)
[2024-01-23] MEDS: NYSTATIN 100,000 UNIT/GM POWD 15 GM TOPICAL SCH (21:18)
[2024-01-24 07:24] LABS: Glucose,Whole Blood 156 mg/dL (70-110)
[2024-01-24 11:13] LABS: ALT 7 U/L (4-34); AST 20 U/L (14-36); African American GFR (CKD) >90 (>60 ml/min/1.73 sqM); Albumin 2.6 g/dL (3.5-5.0); Albumin/Globulin Ratio 1.2; Alkaline Phosphatase 108 U/L (38-126); Anion Gap 6 mmol/L; Blood Urea Nitrogen 12 mg/dL (7-17); Calcium 7.8 mg/dL (8.4-10.2); Carbon Dioxide 16 mmol/L (22-30); Chloride 115 mmol/L (98-107); Globulin 2.2 g/dL; Glucose 143 mg/dL (74-99); Magnesium 1.4 mg/dL (1.6-2.3); Non-African American GFR(CKD) >90 (>60 ml/min/1.73 sqM); Potassium 3.4 mmol/L (3.5-5.1); Sodium 137 mmol/L (137-145); Total Bilirubin 0.4 mg/dL (0.2-1.3); Total Protein 4.8 g/dL (6.3-8.2)
[2024-01-24 11:25] LABS: HCT 32.3 % (34.0-46.0); HGB 10.8 gm/dL (11.4-16.0); MCH 29.3 pg (25.0-35.0); MCHC 33.6 g/dL (31.0-37.0); MCV 87.3 fL (80.0-100.0); Mean Platelet Volume 7.6; Platelet Count 204 k/uL (150-450); RDW 15.6 % (11.5-15.5); WBC 5.4 k/uL (3.8-10.6)
[2024-01-24] MEDS: ACETAMINOPHEN TAB 325 MG TAB PO PRN (11:54)
[2024-01-24] MEDS: MAGNESIUM SULFATE-D5W PMX 1 GM in DEXTROSE/WATER 1 100ML.BAG IVPB SCH (11:56)
[2024-01-24] MEDS: POTASSIUM CHLORIDE ER 20 MEQ TAB.ER PO STA (11:56)
[2024-01-24 12:22] LABS: Glucose,Whole Blood 174 mg/dL (70-110)
--- NOTE | 2024-01-24 12:37 | MR ---
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 TECHNIQUE: Multi planar, multi sequence imaging was performed through the brain including: T1, T2, In version recovery, susceptibility weighted imaging and gradient echo imaging and Diffusion weighted im aging. The patient was then given intravenous contrast and multi planar, T1 fat-saturation images wer e obtained. IV Contrast: 9.5 cc Gadavist FINDINGS: Posterior falx dural thickening series 703 image 45 measuring 11 x 4 mm with dural tail wit h homogenous enhancement is unchanged from prior on 09/29/2023. The romo-white junctions, ventricular system, basal cisterns appear unremarkable. Diffusion-weighted imaging shows no evidence of restricted diffusion to suggest acute/subacute infarct. Intracranial ar terial flow voids are maintained. Midline structures show no abnormality. Scattered foci of high T2 s ignal intensity are seen within the periventricular white matter. The susceptibility weighted images do not reveal any evidence for micro-hemorrhage. After administration of gadolinium, no additional ab normal enhancement is seen. The bone marrow signal is within normal limits. Paranasal sinuses and mastoid air cells: Mild mucosal thickening present bilaterally in the maxillary sinuses. Visualized orbits: Orbital contents are intact. IMPRESSION: 1. Stable posterior falx dural based extra-axial lesion favored represent meningioma. Consider short- term follow-up. No evidence of intra-axial mass, acute/subacute infarct, or additional abnormal enhan cement. 2. Stable Nonspecific white matter changes, likely related to small vessel ischemic disease.
[2024-01-24 13:30] VITALS: BP 113/68; PULSE 107; RESP 16; TEMP 98.2
[2024-01-24 13:36] LABS: Band Neutrophils % 2 %; Eosinophils # (M) 0.05 k/uL (0-0.7); Lymphocytes # (M) 1.78 k/uL (1.0-4.8); Metamyelocytes # (M) 0.11 k/uL (0); Metamyelocytes % 2 %; Monocytes # (M) 0.54 k/uL (0-1.0); Neutrophils % (M) 54 %; Nucleated Red Blood Cells 0 /100 WBC (0-0); Total Cells Counted 200
[2024-01-24 13:37] LABS: RBC Morphology Normal
--- NOTE | 2024-01-24 15:48 | P.DS ---
Providers Date of admission: 01/22/24 19:51 Expected date of discharge: 01/24/24 Attending physician: Dyan Hawthorne MD Consults: 01/22/24 19:51 Consult Physician Urgent Consulting Provider: Che Hernandes Consult Reason/Comments: breast cancer on chemo Do you want consulting provider notified?: Yes Primary care physician: Stated None Hospital Course: Discharge Diagnosis: Generalized weakness status post chemotherapeutic treatment Dehydration with electrolyte imbalances Hypokalemia Hypomagnesemia Breast cancer on chemotherapy Hospital Course: Patient is a pleasant 68-year-old female with a past medical history of hypothyroidism, GERD, migraines, hemangioma, and breast cancer status post left breast lumpectomy followed by chemo and radiation. She is currently undergoing chemotherapy treatment and presented to the emergency department on 01/22/2024 secondary to generalized weakness with exertional dyspnea. Last chemotherapy session was 1 week ago. Upon arrival to the emergency department patient underwent full evaluation. Vital signs upon arrival show blood pressure 111/70, heart rate 115, respiratory rate 24, temp 97.8 F, and SpO2 of 91% on room air. EKG completed showing sinus tach at 114 bpm with a first-degree AV block with MI interval of 226 ms. Chest x-ray completed negative for acute cardiopulmonary process. CTA completed negative for pulmonary emboli or acute aortic process revealing prominent coronary calcifications and multifocal hepatic and renal cysts. Labs completed and reviewed. CBC unremarkable. Coagulation profile normal findings. BMP revealing pseudohyponatremia with sodium of 133 and blood glucose of 304 with corrected sodium of 136, hypokalemia with potassium of 3.3, hypocarbia with bicarb of 19 and prerenal azotemia with BUN of 30 and creatinine of 1.00. Magnesium was significantly low at 1.0. Liver profile normal findings. Troponin negative at less than 0.012. proBNP 359. Urinalysis was contaminated specimen. Influenza A, influenza B, RSV, and COVID PCR were negative. Patient was admitted under our services with consultation to hematology/oncology. MRI brain showed stable posterior falx dural based extra- axial lesion likely meningioma, no acute process. Electrolytes improved. Patient does have a walker at home which she requires for ambulation. We will attempt to set up home care on Friday 01/26. Patient seen and examined at bedside. Vital signs reviewed and stable. General: Nontoxic, no distress, appears at stated age Derm: Warm, dry Head: Atraumatic, normocephalic, symmetric Eyes: EOMI, no lid lag, anicteric sclera Mouth: No lip lesion, mucus membranes moist Cardiovascular: S1S2 reg, no murmur Lungs: CTA bilateral, no rhonchi, no rales, no accessory muscle use Abdominal: Soft, nontender to palpation, no guarding, no appreciable organomegaly Ext: No gross muscle atrophy, no edema, no contractures Neuro: CN II-XI grossly intact, no focal neuro deficits Psych: Alert, oriented, appropriate affect A total of 33 minutes of time were spent preparing this complex discharge summary. Patient was discharged on 01/24/2024 at 1543. Patient Condition at Discharge: Stable Plan - Discharge Summary Discharge Rx Participant: Yes New Discharge Prescriptions: Continue Venlafaxine HCl ER [Effexor XR] 75 mg PO HS Acetaminophen [Tylenol Extra Strength] 500 - 1,000 mg PO Q4-6H PRN PRN Reason: Pain Naproxen Sodium [Aleve] 220 - 440 mg PO Q8H PRN PRN Reason: Pain Levothyroxine Sodium [Synthroid] 175 mcg PO HS Discharge Medication List Levothyroxine Sodium [Synthroid] 175 mcg PO HS 10/15/23 [History] Venlafaxine HCl ER [Effexor XR] 75 mg PO HS 10/15/23 [History] Acetaminophen [Tylenol Extra Strength] 500 - 1,000 mg PO Q4-6H PRN 11/25/23 [History] Naproxen Sodium [Aleve] 220 - 440 mg PO Q8H PRN 01/22/24 [History] Follow up Appointment(s)/Referral(s): Allyn Chaidez, MANOLO [Nurse Practitioner] - 01/29/24 1:00 pm None,Stated [Primary Care Provider] - 1-2 days Patient Instructions/Handouts: Hypomagnesemia (DC), Hypokalemia (DC) Activity/Diet/Wound Care/Special Instructions: Please see PCP and oncology. Discharge Disposition: HOME WITH HOME HEALTH SERVICES
[2024-01-24 17:30] LABS: Glucose,Whole Blood 177 mg/dL (70-110)
== END 2024-01-24 19:15 | disposition home health service (06) ==
LOC: EC 13:08 → 5NMEDONC 19:51
PROVIDERS: ADMIT Internal Medicine; ATTEND Internal Medicine
DX: R53.1 Weakness (principal); T45.1X5A Adverse effect of antineoplastic and immunosuppressive drugs, initial encounter; C50.912 Malignant neoplasm of unspecified site of left female breast; Z17.1 Estrogen receptor negative status [ER-]; E86.0 Dehydration; E87.6 Hypokalemia; E83.42 Hypomagnesemia; R00.0 Tachycardia, unspecified; I10 Essential (primary) hypertension; E11.9 Type 2 diabetes mellitus without complications; K21.9 Gastro-esophageal reflux disease without esophagitis; E89.0 Postprocedural hypothyroidism; Z85.828 Personal history of other malignant neoplasm of skin; Z20.822 Contact with and (suspected) exposure to COVID-19; Z79.4 Long term (current) use of insulin; Z79.890 Hormone replacement therapy; Z88.1 Allergy status to other antibiotic agents; Z80.0 Family history of malignant neoplasm of digestive organs
CPT/HCPCS: 96361 ×3; 96366 ×2; 96372 ×2; 96365; 99285; 36415; 94760; 93005; 97162; 83880; 80053 ×3; 83605; 83735 ×3; 84484; 85025 ×3; 85610; 85730; 81001 ×2; 83036; 87636; 71045; 71275; 70553; G0378 ×3; J1650 ×2; J3475 ×2; Q9967; A9585

== ENCOUNTER 2024-03-19 11:01 | Inpatient (IN) | payer MEDICARE, BC ==
--- NOTE | 2024-03-19 11:58 | ED ---
Fall HPI - General Chief Complaint: Fall Stated Complaint: Fall Time Seen by Provider: 03/19/24 11:23 Source: patient, EMS, RN notes reviewed Mode of arrival: EMS Limitations: no limitations - History of Present Illness Initial Comments: This is a 68-year-old female who presents to the emergency department for a fall injury. Patient has a brain tumor, which causes her to become dizzy and fall frequently. She also has breast cancer and follows with Dr. Hernandes. She was supposed to have chemotherapy today but came to the hospital instead due to the fall. She does use a walker, but states that this does not help when she becomes dizzy and her legs give out on her. She fell yesterday, and then again last night. Last night when she fell, she was in her bathtub. Denies hitting her head or any loss of consciousness. However, she was unable to get up on her own and had to wait 8 hours in the tub before she could get help. She does live alone. She has bruising along the upper back from the tub itself, but states that it is not painful. Because of her prolonged downtime, she was advised to come to the emergency department for evaluation. MD Complaint: fall - Related Data Home Medications Medication Instructions Recorded Confirmed Levothyroxine Sodium [Synthroid] 175 mcg PO HS 10/15/23 01/22/24 Venlafaxine HCl ER [Effexor XR] 75 mg PO HS 10/15/23 01/22/24 Acetaminophen [Tylenol Extra 500 - 1,000 mg PO Q4-6H PRN 11/25/23 01/22/24 Strength] Naproxen Sodium [Aleve] 220 - 440 mg PO Q8H PRN 01/22/24 01/22/24 Allergies Allergy/AdvReac Type Severity Reaction Status Date / Time cephalexin monohydrate AdvReac Nausea & Verified 03/19/24 11:10 [From Keflex] Vomiting propoxyphene HCl AdvReac Nausea & Verified 03/19/24 11:10 [From Darvon] Vomiting Review of Systems ROS Statement: Those systems with pertinent positive or pertinent negative responses have been documented in the HPI. ROS Other: All systems not noted in ROS Statement are negative. Past Medical History Past Medical History: Cancer, Diabetes Mellitus, GERD/Reflux, Hearing Disorder / Deafness, Thyroid Disorder Additional Past Medical History / Comment(s): Current left breast cancer. Diet Controlled Diabetes. Was to have PET Scan recently - cancelled due to high blood sugar of 331. Vertigo. Hx skin cancer in 2017. Hx left breast cancer in 1999. Migraines. Hemangioma, dizziness. Hard of hearing. History of Any Multi-Drug Resistant Organisms: None Reported Past Surgical History: Cholecystectomy, Hysterectomy, Tonsillectomy Additional Past Surgical History / Comment(s): Thyroidectomy for nodules, skin cancer removed, left breast lumpectomy(chemo and radiation). Past Anesthesia/Blood Transfusion Reactions: Motion Sickness, Postoperative Nausea & Vomiting (PONV) Additional Past Anesthesia/Blood Transfusion Reaction / Comment(s): Vertigo. Past Psychological History: No Psychological Hx Reported Smoking Status: Never smoker Past Alcohol Use History: None Reported Past Drug Use History: None Reported - Past Family History Mother Family Medical History: Cancer Additional Family Medical History / Comment(s): Sarcoma. Father Family Medical History: Cancer Additional Family Medical History / Comment(s): Colon cancer. General Exam Limitations: no limitations General appearance: alert, in no apparent distress Head exam: Present: atraumatic, normocephalic, normal inspection Eye exam: Present: normal appearance, PERRL, EOMI. Absent: scleral icterus, conjunctival injection, periorbital swelling Respiratory exam: Present: normal lung sounds bilaterally. Absent: respiratory distress, wheezes, rales, rhonchi, stridor Cardiovascular Exam: Present: regular rate, normal rhythm, normal heart sounds. Absent: systolic murmur, diastolic murmur, rubs, gallop, clicks Neurological exam: Present: alert, oriented X3, CN II-XII intact Psychiatric exam: Present: normal affect, normal mood Skin exam: Present: warm, dry, intact, normal color. Absent: rash Course Vital Signs 03/19/24 03/19/24 11:04 14:33 Temperature 97.9 F 98 F Pulse Rate 100 101 H Respiratory 18 18 Rate Blood Pressure 111/73 101/66 O2 Sat by Pulse 99 96 Oximetry Medical Decision Making - Medical Decision Making This is a 68 year old female who presents to the emergency department for frequent falls. Was pt. sent in by a medical professional or institution? @ -No Did you speak to anyone other than the patient for history? @ -No Did you review nursing and triage notes? @ -Yes, and I agree, it is accurate with regards to the patient's symptoms. Were old charts reviewed? @ -No Differential Diagnosis? @ -Differential Frequent Falls: Electrolyte issue, UTI, arrhythmia, balance problem, neurological issue, this is not meant to be an all-inclusive list. EKG interpreted by me (3pts min.)? @ -EKG interpreted by me demonstrating the following: Sinus rhythm. Ventricular rate 99 bpm, MN interval 155 ms, QRS duration 84 ms, QTc 453 ms. X-rays interpreted by me (1pt min.)? @ -Chest x-ray obtained, my interpretation identifies no localized consolidations or infiltrates. X-ray of the thoracic spine obtained. My interpretation identifies no acute fractures. CT interpreted by me (1pt min.)? @ -Not obtained U/S interpreted by me (1pt. min.)? @ -Not obtained What testing was considered but not performed? (CT, X-rays, U/S, labs)? Why? @ -None What meds were considered but not given? Why? @ -None Did you discuss the management of the patient with other professionals? @ -Yes, Dr. Fernandez, who accepts the patient for admission. Did you reconcile home meds? @ -No Was smoking cessation discussed for >3mins.? @ -No Was critical care preformed (if so, how long)? @ -No Were there social determinants of health that impacted care today? How? (Homelessness, low income, unemployed, alcoholism, drug addiction, parsosn sportation, low edu. Level, literacy, decrease access to med. care, correction, rehab)? @ -No Was there de-escalation of care discussed even if they declined? (Discuss DNR or withdrawal of care, Hospice)? @ -No What co-morbidities impacted this encounter? (DM, HTN, Smoking, COPD, CAD, Cancer, CVA, Hep., AIDS, mental health diagnosis, sleep apnea, morbid obesity)? @ -Breast cancer, Meningioma, DM, thyroid disorder Was patient admitted / discharged? @ -Admitted. Lab work demonstrates signs of dehydration. Slightly decreased hemoglobin is stable when compared with prior. Creatinine kinase is only mildly elevated. While her urinalysis is contaminated, it is consistent with infection. Chest x-ray and x-ray of the thoracic spine revealed no acute process. Patient attempted to get up several times in the emergency department. Even when using a walker and with assistance, she proceeded to fall. This was a result of her legs feeling weak and giving out on her, which is what typically occurs. She did not have any syncopal episodes. She also did not sustain any injuries during these events, but fell to her knees or on her bottom. There is concern for patient being safely discharged home given the number of falls she has and with her living alone. Additionally, she is immunocompromised with the chemotherapy and has an active infection. Patient subsequently admitted to medicine for UTI, weakness, and frequent falls. Blood cultures were obtained and urine was sent for culture as well. Ceftriaxone administered. Consult placed for heme-onc as well as occupational and physical therapy. Undiagnosed new problem with uncertain prognosis? @ -None Drug Therapy requiring intensive monitoring for toxicity (Heparin, Nitro, Insulin, Cardizem)? @ -None Were any procedures done? @ -None Diagnosis/symptom? @ -Weakness, frequent falls, UTI Acute, or Chronic, or Acute on Chronic? @ -Acute Uncomplicated (without systemic symptoms) or Complicated (systemic symptoms)? @ -Complicated Side effects of treatment? @ -None Exacerbation, Progression, or Severe Exacerbation] @ -Not applicable Poses a threat to life or bodily function? @ -Yes This case was discussed in detail with the attending ED physician, Dr. Connor. Presentation, findings, and treatment plan discussed in detail as well. - Lab Data Result diagrams: 03/19/24 11:33 03/19/24 11:33 Lab Results 03/19/24 03/19/24 03/19/24 Range/Units 11:33 11:33 11:33 WBC 4.7 (3.8-10.6) k/uL RBC 3.19 L (3.80-5.40) m/uL Hgb 10.4 L (11.4-16.0) gm/dL Hct 28.8 L (34.0-46.0) % MCV 90.3 (80.0-100.0) fL MCH 32.5 (25.0-35.0) pg MCHC 36.0 (31.0-37.0) g/dL RDW 16.2 H (11.5-15.5) % Plt Count 188 (150-450) k/uL MPV 8.5 Neutrophils % 72 % Lymphocytes % 19 % Monocytes % 5 % Eosinophils % 0 % Basophils % 1 % Neutrophils # 3.4 (1.3-7.7) k/uL Lymphocytes # 0.9 L (1.0-4.8) k/uL Monocytes # 0.2 (0-1.0) k/uL Eosinophils # 0.0 (0-0.7) k/uL Basophils # 0.0 (0-0.2) k/uL Poikilocytosis Slight Anisocytosis Slight PT 10.9 (10.0-12.5) sec INR 1.0 (<1.2) APTT 21.1 L (22.0-30.0) sec Sodium 136 L (137-145) mmol/L Potassium 3.5 (3.5-5.1) mmol/L Chloride 108 H (98-107) mmol/L Carbon Dioxide 20 L (22-30) mmol/L Anion Gap 8 mmol/L BUN 25 H (7-17) mg/dL Creatinine 0.73 (0.52-1.04) mg/dL Est GFR (CKD-EPI)AfAm >90 (>60 ml/min/1.73 sqM) Est GFR (CKD-EPI)NonAf 85 (>60 ml/min/1.73 sqM) Glucose 272 H (74-99) mg/dL Plasma Lactic Acid Víctor (0.7-2.0) mmol/L Calcium 8.5 (8.4-10.2) mg/dL Magnesium 1.5 L (1.6-2.3) mg/dL Total Bilirubin 0.8 (0.2-1.3) mg/dL AST 22 (14-36) U/L ALT 13 (4-34) U/L Alkaline Phosphatase 102 (38-126) U/L Creatine Kinase 183 H (30-135) U/L Troponin I (0.000-0.034) ng/mL Total Protein 5.5 L (6.3-8.2) g/dL Albumin 3.1 L (3.5-5.0) g/dL Urine Color Urine Appearance (Clear) Urine pH (5.0-8.0) Ur Specific [place] (1.001-1.035) Urine Protein (Negative) Urine Glucose (UA) (Negative) Urine Ketones (Negative) Urine Blood (Negative) Urine Nitrite (Negative) Urine Bilirubin (Negative) Urine Urobilinogen (<2.0) mg/dL Ur Leukocyte Esterase (Negative) Urine RBC (0-5) /hpf Urine WBC (0-5) /hpf Urine WBC Clumps (None) /hpf Ur Squamous Epith Cells (0-4) /hpf Urine Bacteria (None) /hpf Urine Mucus (None) /hpf 03/19/24 03/19/24 03/19/24 Range/Units 11:33 11:33 14:25 WBC (3.8-10.6) k/uL RBC (3.80-5.40) m/uL Hgb (11.4-16.0) gm/dL Hct (34.0-46.0) % MCV (80.0-100.0) fL MCH (25.0-35.0) pg MCHC (31.0-37.0) g/dL RDW (11.5-15.5) % Plt Count (150-450) k/uL MPV Neutrophils % % Lymphocytes % % Monocytes % % Eosinophils % % Basophils % % Neutrophils # (1.3-7.7) k/uL Lymphocytes # (1.0-4.8) k/uL Monocytes # (0-1.0) k/uL Eosinophils # (0-0.7) k/uL Basophils # (0-0.2) k/uL Poikilocytosis Anisocytosis PT (10.0-12.5) sec INR (<1.2) APTT (22.0-30.0) sec Sodium (137-145) mmol/L Potassium (3.5-5.1) mmol/L Chloride (98-107) mmol/L Carbon Dioxide (22-30) mmol/L Anion Gap mmol/L BUN (7-17) mg/dL Creatinine (0.52-1.04) mg/dL Est GFR (CKD-EPI)AfAm (>60 ml/min/1.73 sqM) Est GFR (CKD-EPI)NonAf (>60 ml/min/1.73 sqM) Glucose (74-99) mg/dL Plasma Lactic Acid Víctor 0.8 (0.7-2.0) mmol/L Calcium (8.4-10.2) mg/dL Magnesium (1.6-2.3) mg/dL Total Bilirubin (0.2-1.3) mg/dL AST (14-36) U/L ALT (4-34) U/L Alkaline Phosphatase (38-126) U/L Creatine Kinase (30-135) U/L Troponin I <0.012 (0.000-0.034) ng/mL Total Protein (6.3-8.2) g/dL Albumin (3.5-5.0) g/dL Urine Color Yellow Urine Appearance Turbid H (Clear) Urine pH 5.5 (5.0-8.0) Ur Specific [place] 1.024 (1.001-1.035) Urine Protein 1+ H (Negative) Urine Glucose (UA) 4+ H (Negative) Urine Ketones 2+ H (Negative) Urine Blood Small H (Negative) Urine Nitrite Negative (Negative) Urine Bilirubin Negative (Negative) Urine Urobilinogen <2.0 (<2.0) mg/dL Ur Leukocyte Esterase Large H (Negative) Urine RBC 28 H (0-5) /hpf Urine WBC >182 H (0-5) /hpf Urine WBC Clumps Few H (None) /hpf Ur Squamous Epith Cells 30 H (0-4) /hpf Urine Bacteria Many H (None) /hpf Urine Mucus Many H (None) /hpf - Radiology Data Radiology results: report reviewed, image reviewed Disposition Clinical Impression: UTI (urinary tract infection), Weakness, Frequent falls Disposition: ADMITTED IP TO THIS [facility] Time of Disposition: 15:32
[2024-03-19] MEDS: SODIUM CHLORIDE 0.9% 1,000 ML IV STA (12:36)
[2024-03-19 12:58] LABS: Anisocytosis Slight; Basophils % (A) 1 %; Eosinophils % (A) 0 %; HCT 28.8 % (34.0-46.0); HGB 10.4 gm/dL (11.4-16.0); Lymphocytes # (A) 0.9 k/uL (1.0-4.8); Lymphocytes % (A) 19 %; MCH 32.5 pg (25.0-35.0); MCV 90.3 fL (80.0-100.0); Mean Platelet Volume 8.5; Monocytes # (A) 0.2 k/uL (0-1.0); Monocytes % (A) 5 %; Neutrophils # (A) 3.4 k/uL (1.3-7.7); Neutrophils % (A) 72 %; Platelet Count 188 k/uL (150-450); Poikilocytosis Slight; RBC 3.19 m/uL (3.80-5.40); RDW 16.2 % (11.5-15.5); WBC 4.7 k/uL (3.8-10.6)
[2024-03-19 13:09] LABS: ALT 13 U/L (4-34); AST 22 U/L (14-36); African American GFR (CKD) >90 (>60 ml/min/1.73 sqM); Albumin 3.1 g/dL (3.5-5.0); Alkaline Phosphatase 102 U/L (38-126); Anion Gap 8 mmol/L; Blood Urea Nitrogen 25 mg/dL (7-17); Calcium 8.5 mg/dL (8.4-10.2); Carbon Dioxide 20 mmol/L (22-30); Chloride 108 mmol/L (98-107); Creatine Kinase 183 U/L (30-135); Glucose 272 mg/dL (74-99); Magnesium 1.5 mg/dL (1.6-2.3); Non-African American GFR(CKD) 85 (>60 ml/min/1.73 sqM); Potassium 3.5 mmol/L (3.5-5.1); Sodium 136 mmol/L (137-145); Total Bilirubin 0.8 mg/dL (0.2-1.3); Total Protein 5.5 g/dL (6.3-8.2)
[2024-03-19 13:12] LABS: Prothrombin Time 10.9 sec (10.0-12.5)
[2024-03-19 13:13] LABS: Partial Thromboplastin Time 21.1 sec (22.0-30.0)
--- NOTE | 2024-03-19 13:35 | XR ---
EXAMINATION TYPE: XR chest 2V DATE OF EXAM: 03/19/2024 1:32 PM CLINICAL INDICATION:Female, 68 years old with history of Weakness; COMPARISON: Chest radiographs from 01/22/2024 TECHNIQUE: XR chest 2V Frontal and lateral views of the chest. FINDINGS: Lungs/Pleura: There is no evidence of pleural effusion, focal consolidation, or pneumothorax. Pulmonary vascularity: Unremarkable. Heart/mediastinum: Cardiomediastinal silhouette is unremarkable. Musculoskeletal: No acute osseous pathology. Chest wall [id number] and tubing in the superior cavoatrial junction. IMPRESSION: No acute cardiopulmonary disease/process.
--- NOTE | 2024-03-19 13:36 | XR ---
EXAMINATION TYPE: XR thoracic spine complete DATE OF EXAM: 03/19/2024 1:32 PM CLINICAL INDICATION:Female, 68 years old with history of Pain after fall; H COMPARISON: None TECHNIQUE: XR thoracic spine complete views of the spine in Frontal and lateral projections. FINDINGS: No evidence of acute fracture. There is scattered multilevel disk space narrowing without loss of ve rtebral body height. There is normal alignment of the thoracic vertebral bodies. Scattered osteophyte formation along the anterior and lateral aspects of the vertebral bodies. Neural foramen are patent given limitations of this exam. Spinal canal appears patent. [id number] terminating in the superio r cavoatrial junction. IMPRESSION: 1. No acute osseous pathology. 2. Mild to moderate degeneration changes throughout the spine.
[2024-03-19 14:44] LABS: Appearance,Urine Turbid (Clear); Bacteria,Urine Many /hpf; Bilirubin,Urine Negative (Negative); Blood,Urine Small (Negative); Color,Urine Yellow; Glucose,Urine (UA) 4+ (Negative); Leukocyte Esterase,Urine Large (Negative); Mucus,Urine Many /hpf; Nitrite,Urine Negative (Negative); PH, Urine 5.5 (5.0-8.0); Protein,Urine 1+ (Negative); RBC,Urine 28 /hpf (0-5); Specific Gravity,Urine 1.024 (1.001-1.035); Squamous Epithelial Cell,Urine 30 /hpf (0-4); Urobilinogen,Urine <2.0 mg/dL (<2.0); WBC,Urine >182 /hpf (0-5)
[2024-03-19 15:03] LABS: Ketones,Urine 2+ (Negative)
[2024-03-19] MEDS ORDERED: NALOXONE 0.4 MG/ML 1 ML VIAL IV PRN (15:32)
[2024-03-19] MEDS ORDERED: ACETAMINOPHEN TAB 325 MG TAB PO PRN (15:32)
[2024-03-19] MEDS ORDERED: ONDANSETRON 4 MG/2 ML VIAL IVP PRN (15:32)
[2024-03-19] MEDS ORDERED: MORPHINE SULFATE 4 MG/ML SYRINGE IV PRN (15:32)
[2024-03-19] MEDS: cefTRIAXone IN SWFI 1,000 MG/10 ML SYRINGE IVP STA (16:34)
[2024-03-19] MEDS: MAGNESIUM OXIDE 400 MG TAB PO STA (16:51)
[2024-03-19] MEDS: SODIUM CHLORIDE 0.9% 1,000 ML IV SCH (16:51)
[2024-03-19 18:44] LABS: T4, Free (Free Thyroxine) 1.21 ng/dL (0.78-2.19)
[2024-03-19] MEDS: HYDROcodone/APAP 5-325MG 1 EACH TAB PO PRN (22:05)
[2024-03-20] MEDS: PANTOPRAZOLE 40 MG/10 ML VIAL IV SCH (08:14)
[2024-03-20] MEDS ORDERED: NAPROXEN 250 MG TAB PO PRN (11:42)
[2024-03-20] MEDS: NYSTATIN 100,000 UNIT/GM POWD 15 GM TOPICAL SCH (13:01)
[2024-03-20 13:48] VITALS: BMI 36.6
[2024-03-20] MEDS: cefTRIAXone 1,000 MG VIAL (IM USE) IM SCH (13:48)
--- NOTE | 2024-03-20 17:22 | XR ---
EXAMINATION TYPE: XR knee complete bilateral DATE OF EXAM: 03/20/2024 2:07 PM CLINICAL INDICATION:Female, 68 years old with history of fall; [facility] COMPARISON: None. TECHNIQUE: XR knee complete bilateral; examined in Frontal, oblique, and cross table lateral views. FINDINGS: Osseous mineralization appears appropriate. No evidence of lytic/blastic lesion, acute fracture, or d islocation. Right knee shows mild narrowing of the medial compartment with small marginal osteophyte. Small enthe sopathic spurs of the superior and inferior patellar poles anteriorly. Possible small suprapatellar e ffusion. Left knee shows [id number] narrowing of the medial compartment with marginal osteophytes. There is small enthesopathic spurring at the superior and inferior patellar poles anteriorly. Possible sma ll suprapatellar effusion. IMPRESSION: Bilateral knees: 1. No acute fracture or dislocation. 2. [id number] medial compartment arthropathy, left slightly worse than right. 3. Possible small suprapatellar joint effusions.
[2024-03-20] MEDS: VENLAFAXINE HCL ER 75 MG CAP PO SCH (22:12)
[2024-03-20] MEDS: SENNOSIDES 8.6 MG TAB PO SCH (22:12)
[2024-03-20] MEDS: HEPARIN SODIUM,PORCINE 5,000 UNIT/ML 1 ML VIAL SQ SCH (22:12)
[2024-03-20] MEDS: LEVOTHYROXINE 88 MCG TAB PO SCH (22:12)
[2024-03-20] MEDS: methocarbamoL 500 MG TAB PO PRN (22:13)
--- NOTE | 2024-03-20 23:54 | HP ---
HISTORY AND PHYSICAL CHIEF COMPLAINT: Fall and weakness. HISTORY OF PRESENT ILLNESS: This is a 68-year-old woman with a past medical history of CA breast, is complaining of significant weakness. The patient had multiple falls. The patient also had a mets. Dr. Hernandes is following the patient closely in the outpatient setting. The patient is feeling dizzy. The patient is unable to get up from the tub for about 8 hours. The patient is complaining of leg pain also. There is no history of fever, rigors or chills at this time. PAST MEDICAL HISTORY: Reviewed, it include diabetes mellitus, GERD, history of hearing disorder. The rest of the history and rest of the chart is also reviewed. HOME MEDICATIONS: Reviewed include senna, dose and rest of medications reviewed. ALLERGIES: Keflex. FAMILY HISTORY: History of sarcoma. SOCIAL HISTORY: No history of smoking or alcohol. REVIEW OF SYSTEMS: A 14-point review is negative as mentioned earlier. PHYSICAL EXAMINATION: VITAL SIGNS: respirations 18. HEENT: Conjunctivae normal. NECK: No jugular venous distention. CARDIOVASCULAR: S1, S2 n. ABDOMEN: Soft. EXTREMITIES: Legs, significant pain and swelling present. NERVOUS SYSTEM: No focal deficits. LABORATORY DATA: WBC 4.7, hemoglobin is 10.4. Sodium 136. Labs are noted. ASSESSMENT: 1. Weakness and fall, gait dysfunction. 2. Possible acute urinary tract infection present on admission. 3. Carcinoma breast on chemotherapy. 4. Diabetes mellitus type 2. 5. History of gastroesophageal reflux disease. 6. Hypothyroidism. RECOMMENDATIONS AND DISCUSSION: Recommend to continue current management and continue symptomatic treatment. Otherwise at this time, we will initiate broad-spectrum IV antibiotics and IV fluids, PT/OT evaluation, symptomatic treatment of the pain, x-rays. Prognosis is guarded because of multiple complex medical issues. Further recommendations to follow. See orders for details. The patient might qualify for ECF. The patient will require more than 2 nights hospital stay for evaluation and treatment of the above mentioned medical issues. MMODL / IJN: [id number] / MTDD
--- NOTE | 2024-03-21 00:30 | P.CONS ---
History of Present Illness - Reason for Consult Consult date: 03/20/24 breast cancer Requesting physician: Shannon Howard - Chief Complaint breast cancer - History of Present Illness Patient is a 68 year old female with a significant history of invasive ductal carcinoma of left breast. She is a patient of Dr. Adithya Hernandes. Had left breast Bx on 10/27/23 revealing triple negative invasive ductal carcinoma. Started on neoadjuvant keytruda/carbo/taxol, and completed cycle 4 day 1 on 03/12/24, missing day 8 on 03/19 due to hospitalization. Brain MRI on 01/24/2024 revealed stable posterior falx dural based extraaxial lesion favored to represent meningioma. No evidence of mass, acute/subacute infarct or additional abnormal enhancement. And stable nonspecific white matter changes, likely related to small vessel ischemic disease. Patient has been experiencing intermittent dizziness and falls. Patient presented to the emergency room s/p fall. Patient reports she was in the bathtub and experienced dizziness and had a subsequent fall. She states she was in the bathtub for approximately 8 hours before presenting to the emergency room. She denies head injury and loss of consciousness. On admission chest x- ray revealed no acute cardiopulmonary processes. Thoracic spine x-ray revealed no acute osseous fracture or pathology, with mild to moderate degeneration changes throughout the spine. X-ray of left knee and tib/fib was obtained today, results pending. Counts stable, WBC 4.7, hemoglobin 10.4, platelets 188,000. Creatinine 0.73, magnesium 1.5. Troponin negative. At todays visit, pt is reporting muscle spasms in bilateral hips, and upper legs. Also reporting generalized weakness and inability to ambulate on her own, and is worried about being discharged to home Review of Systems 10 point ROS is negative except as stated in the HPI Past Medical History Past Medical History: Cancer, Diabetes Mellitus, GERD/Reflux, Hearing Disorder / Deafness, Thyroid Disorder Additional Past Medical History / Comment(s): Current left breast cancer. Diet Controlled Diabetes. Was to have PET Scan recently - cancelled due to high blood sugar of 331. Vertigo. Hx skin cancer in 2017. Hx left breast cancer in 1999. Migraines. Hemangioma, dizziness. Hard of hearing. "Mangeoma" History of Any Multi-Drug Resistant Organisms: None Reported Past Surgical History: Cholecystectomy, Hysterectomy, Tonsillectomy Additional Past Surgical History / Comment(s): Thyroidectomy for nodules, skin cancer removed, left breast lumpectomy(chemo and radiation). Past Anesthesia/Blood Transfusion Reactions: Motion Sickness, Postoperative Nausea & Vomiting (PONV) Additional Past Anesthesia/Blood Transfusion Reaction / Comm: Vertigo. Past Psychological History: No Psychological Hx Reported Additional Psychological History / Comment(s): Effexor for menopause symptoms. Smoking Status: Never smoker Past Alcohol Use History: None Reported Past Drug Use History: None Reported - Past Family History Mother Family Medical History: Cancer Additional Family Medical History / Comment(s): Sarcoma. Father Family Medical History: Cancer Additional Family Medical History / Comment(s): Colon cancer. Medications and Allergies Home Medications Medication Instructions Recorded Confirmed Type Levothyroxine Sodium [Synthroid] 175 mcg PO HS 10/15/23 03/19/24 History Venlafaxine HCl ER [Effexor XR] 75 mg PO HS 10/15/23 03/19/24 History Acetaminophen [Tylenol Extra 500 - 1,000 mg PO Q4-6H PRN 11/25/23 03/19/24 History Strength] Naproxen Sodium [Aleve] 220 - 440 mg PO Q8H PRN 01/22/24 03/19/24 History Magnesium Oxide [Magox 400] 400 mg PO DAILY 03/19/24 03/19/24 History Ondansetron [Zofran] 4 - 8 mg PO Q4H PRN 03/19/24 03/19/24 History Sennosides [Senokot] 17.2 mg PO HS 03/19/24 03/19/24 History Allergies Allergy/AdvReac Type Severity Reaction Status Date / Time cephalexin monohydrate AdvReac Nausea & Verified 03/19/24 17:39 [From Keflex] Vomiting propoxyphene HCl AdvReac Nausea & Verified 03/19/24 17:39 [From Darvon] Vomiting Physical Exam Vitals: Vital Signs Temp Pulse Pulse Resp BP BP Pulse Ox 03/20/24 07:04 98.0 F 86 18 121/72 99 03/20/24 02:00 98.3 F 93 16 128/70 97 03/19/24 21:45 97.9 F 97 16 118/73 99 03/19/24 14:33 98 F 101 H 18 101/66 96 Intake and Output 03/19/24 03/20/24 03/20/24 22:59 06:59 14:59 Output Total 400 Balance -400 Output: Urine 400 Other: Voiding Method Diaper Diaper Incontinent Incontinent External Catheter External Catheter Weight 96.615 kg - Constitutional General appearance: average body habitus, no acute distress - EENT Eyes: anicteric sclerae, EOMI ENT: hearing grossly normal - Respiratory Respiratory: bilateral: CTA - Cardiovascular Rhythm: regular Heart sounds: normal: S1, S2 - Gastrointestinal General gastrointestinal: soft, no tenderness - Integumentary bruising noted to left pressley Integumentary: no cyanotic - Musculoskeletal Musculoskeletal: generalized weakness - Psychiatric Psychiatric: A&O x's 3 Results CBC & Chem 7: 03/19/24 11:33 03/19/24 11:33 Labs: Abnormal Lab Results - Last 24 Hours (Table) 03/19/24 03/19/24 03/19/24 Range/Units 11:33 11:33 11:33 RBC 3.19 L (3.80-5.40) m/uL Hgb 10.4 L (11.4-16.0) gm/dL Hct 28.8 L (34.0-46.0) % RDW 16.2 H (11.5-15.5) % Lymphocytes # 0.9 L (1.0-4.8) k/uL APTT 21.1 L (22.0-30.0) sec Sodium 136 L (137-145) mmol/L Chloride 108 H (98-107) mmol/L Carbon Dioxide 20 L (22-30) mmol/L BUN 25 H (7-17) mg/dL Glucose 272 H (74-99) mg/dL Hemoglobin A1c (<=6.0) % Magnesium 1.5 L (1.6-2.3) mg/dL Creatine Kinase 183 H (30-135) U/L Total Protein 5.5 L (6.3-8.2) g/dL Albumin 3.1 L (3.5-5.0) g/dL TSH (0.465-4.680) mIU/L Urine Appearance (Clear) Urine Protein (Negative) Urine Glucose (UA) (Negative) Urine Ketones (Negative) Urine Blood (Negative) Ur Leukocyte Esterase (Negative) Urine RBC (0-5) /hpf Urine WBC (0-5) /hpf Urine WBC Clumps (None) /hpf Ur Squamous Epith Cells (0-4) /hpf Urine Bacteria (None) /hpf Urine Mucus (None) /hpf 03/19/24 03/19/24 03/19/24 Range/Units 11:33 11:33 14:25 RBC (3.80-5.40) m/uL Hgb (11.4-16.0) gm/dL Hct (34.0-46.0) % RDW (11.5-15.5) % Lymphocytes # (1.0-4.8) k/uL APTT (22.0-30.0) sec Sodium (137-145) mmol/L Chloride (98-107) mmol/L Carbon Dioxide (22-30) mmol/L BUN (7-17) mg/dL Glucose (74-99) mg/dL Hemoglobin A1c 9.4 H (<=6.0) % Magnesium (1.6-2.3) mg/dL Creatine Kinase (30-135) U/L Total Protein (6.3-8.2) g/dL Albumin (3.5-5.0) g/dL TSH 13.500 H (0.465-4.680) mIU/L Urine Appearance Turbid H (Clear) Urine Protein 1+ H (Negative) Urine Glucose (UA) 4+ H (Negative) Urine Ketones 2+ H (Negative) Urine Blood Small H (Negative) Ur Leukocyte Esterase Large H (Negative) Urine RBC 28 H (0-5) /hpf Urine WBC >182 H (0-5) /hpf Urine WBC Clumps Few H (None) /hpf Ur Squamous Epith Cells 30 H (0-4) /hpf Urine Bacteria Many H (None) /hpf Urine Mucus Many H (None) /hpf Comments: thoracic xray reviewed Chest x-ray: report reviewed Assessment and Plan (1) Frequent falls Current Visit: Yes Status: Acute Priority: High Code(s): R29.6 - REPEATED FALLS SNOMED Code(s): 001520442 (2) Breast cancer, left Current Visit: Yes Status: Acute Priority: Medium Code(s): C50.912 - MALIGNANT NEOPLASM OF UNSPECIFIED SITE OF LEFT FEMALE BREAST SNOMED Code(s): 491201349 Plan: Frequent falls: Presented s.p fall. Has been experincing dizziness and freqnt falls. Brain MRI on 01/24/2024 revealed stable posterior falx dural based extraaxial lesion favored to represent meningioma. No evidence of mass, acute/subacute infarct or additional abnormal enhancement -Thoracic xray negative for acute fx. Left tib/fib and left knee results pending -PT/OT consulted. Will placed referral for home health care services, nursing/PT/OT Invasive ductal carcinoma: - Started on neoadjuvant keytruda/carbo/taxol, and completed cycle 4 day 1 on 03/12/24, missing day 8 on 03/19 due to hospitalization. - Next chemo scheduled for 03/26. Pending patients recovery will plan to continue with regimen as scheduled. F/u scheduled with Dr. Hernandes on 04/07
--- NOTE | 2024-03-21 08:57 | XR ---
EXAMINATION TYPE: XR tibia fibula 2 views LT DATE OF EXAM: 03/20/2024 Comparison: None Clinical History: 68-year-old female with pain after fall Findings: There is some soft tissue swelling noted lateral upper leg. Small knee joint effusion again demonstra marline. No acute fracture seen. Impression: Soft tissue swelling lateral upper leg. Small knee joint effusion. Tibia/fibula without acute osseous abnormality seen.
[2024-03-21] MEDS: MAGNESIUM OXIDE 400 MG TAB PO SCH (09:01)
[2024-03-21 09:22] LABS: Basophils # (A) 0.05 X 10*3/uL (0.00-0.10); Basophils % (A) 1.4 %; Eosinophils # (A) 0.09 X 10*3/uL (0.04-0.35); Eosinophils % (A) 2.6 %; HCT 28.4 % (37.2-46.3); HGB 9.5 g/dL (12.0-15.0); Lymphocytes # (A) 1.31 X 10*3/uL (0.90-5.00); Lymphocytes % (A) 37.3 %; MCH 30.6 pg (27.0-32.0); MCHC 33.5 g/dL (32.0-37.0); MCV 91.6 FL (80.0-97.0); Mean Platelet Volume 9.6 FL (9.5-12.2); Monocytes # (A) 0.43 X 10*3/uL (0.20-1.00); Monocytes % (A) 12.3 %; NRBC Per 100 WBC 0 X 10*3/uL (0.00-0.01); Neutrophils % (A) 45.5 %; Platelet Count 201 X 10*3/uL (140-440); RDW 16.1 % (11.5-14.5); WBC 3.51 X 10*3/uL (4.50-10.00)
[2024-03-21 10:10] LABS: ALT 10 U/L (8-44); AST 18 U/L (13-35); Albumin 3.3 g/dL (3.8-4.9); Albumin/Globulin Ratio 1.83 Ratio (1.60-3.17); Alkaline Phosphatase 103 U/L (41-126); BUN/Creat Ratio 17.83 Ratio (12.00-20.00); Blood Urea Nitrogen 10.7 mg/dL (9.0-27.0); Calcium 8.2 mg/dL (8.7-10.3); Carbon Dioxide 23.4 mmol/L (21.6-31.8); Chloride 107 mmol/L (96-109); Globulin 1.8 g/dL (1.6-3.3); Glucose 222 mg/dL (70-110); Potassium 3.8 mmol/L (3.5-5.5); Sodium 142 mmol/L (135-145); Total Bilirubin 0.3 mg/dL (0.3-1.2); Total Protein 5.1 g/dL (6.2-8.2)
--- NOTE | 2024-03-21 14:07 | XR ---
EXAMINATION TYPE: XR lumbar spine 3V, XR Hip 2 views Bilateral and AP pelvis DATE OF EXAM: 03/21/2024 Comparison: None Clinical History: 68-year-old female pain post fall Findings: Lumbar spine: Moderate disc/endplate degenerative change lower thoracic and upper lumbar spine with bulky anterior endplate spondylosis. Mild superior endplate deformity L3 vertebral body is age indeterminate. Remain ing vertebral body heights are preserved. Hypertrophic facet arthropathy throughout. Alignment is kirti ntained. Pelvis and hips: Osteopenia. SI joints appear symmetric and intact as does the pubic symphysis. There is very mild de generative spurring at the hips. Some heterotopic ossification is noted above the left greater trocha nter. Alignment for osteopenia, no displaced fracture is seen. Impression: Lumbar spine: 1. Moderate multilevel spondylotic change. Bulky anterior endplate spurring lower thoracic and upper lumbar spine. 2. Age indeterminate superior endplate deformity of L3. Correlate for any focal pain at this level. Pelvis and hips: 3. Osteopenia limiting the exam. No displaced fracture seen. If nonweightbearing, MRI may be consider ed for more sensitive evaluation.
--- NOTE | 2024-03-22 00:15 | PN ---
PROGRESS NOTE DATE OF SERVICE: 03/21/2024 SUBJECTIVE: This 68-year-old woman was admitted with fall and gait dysfunction, is complaining of back pain as well as knee pain. The patient also has hematoma of the left lower leg also. The x-rays only showed soft tissue shadows. The patient has been closely monitored. Lab serra, the patient has some mild leukopenia and evidence of UTI. Urine culture is growing gram-negative bacilli. PAST MEDICAL HISTORY: Reviewed. REVIEW OF SYSTEMS: A 14-point review is negative except as mentioned earlier. PHYSICAL EXAMINATION: VITAL SIGNS: Pulse 94, blood pressure 130/76, respirations 20. HEENT: Conjunctivae normal. CARDIOVASCULAR: S1, S2. RESPIRATIONS: Diminished at the bases, few scattered rhonchi. ABDOMEN: Soft, nontender. LEGS: No edema, movements are slightly painful. LABORATORY DATA: Noted as mentioned earlier. ASSESSMENT: 1. Weakness, fall, and gait dysfunction. 2. Acute UTI, present on admission with gram-negative bacilli. 3. CA breast, on chemotherapy. 4. Diabetes mellitus type 2. 5. Severe back pain as well as joint pain, DJD. 6. History of GERD. 7. Hypothyroidism. RECOMMENDATIONS: Recommended to continue current management, continue symptomatic treatment, otherwise recommend x-rays of the lumbar spine and pelvis and obtain orthopedic evaluation if there is an abnormality, otherwise await the final ID of the organism and repeat labs. Guarded prognosis. Further recommendations to follow. MMODL / RAMYN: [id number] /
[2024-03-22] MEDS: PANTOPRAZOLE 40 MG TABLET PO SCH (09:24)
[2024-03-22 11:15] LABS: Basophils # (A) 0.04 X 10*3/uL (0.00-0.10); Basophils % (A) 1.2 %; Eosinophils # (A) 0.06 X 10*3/uL (0.04-0.35); Eosinophils % (A) 1.8 %; HCT 29.9 % (37.2-46.3); Lymphocytes # (A) 1.18 X 10*3/uL (0.90-5.00); Lymphocytes % (A) 35.4 %; MCH 30.4 pg (27.0-32.0); MCHC 33.4 g/dL (32.0-37.0); MCV 90.9 FL (80.0-97.0); Mean Platelet Volume 9.6 FL (9.5-12.2); Monocytes # (A) 0.47 X 10*3/uL (0.20-1.00); Monocytes % (A) 14.1 %; NRBC Per 100 WBC 0 X 10*3/uL (0.00-0.01); Neutrophils # (A) 1.54 X 10*3/uL (1.80-7.70); Neutrophils % (A) 46.3 %; Platelet Count 228 X 10*3/uL (140-440); RBC 3.29 X 10*6/uL (4.10-5.20); WBC 3.33 X 10*3/uL (4.50-10.00)
[2024-03-22 11:29] LABS: BUN/Creat Ratio 15.17 Ratio (12.00-20.00); Blood Urea Nitrogen 9.1 mg/dL (9.0-27.0); Calcium 8.7 mg/dL (8.7-10.3); Carbon Dioxide 25.1 mmol/L (21.6-31.8); Chloride 105 mmol/L (96-109); Glucose 195 mg/dL (70-110); Potassium 3.6 mmol/L (3.5-5.5); Sodium 140 mmol/L (135-145)
[2024-03-22] MEDS ORDERED: DEXTROSE 50% SYRINGE 50 ML IVP PRN ×2 (14:28)
[2024-03-22 17:03] LABS: Glucose,Whole Blood 216 mg/dL (70-110)
[2024-03-22] MEDS: INSULIN ASPART (NovoLOG) 100 UNIT/ML VIAL SQ SCH (18:16)
--- NOTE | 2024-03-22 18:47 | P.PN ---
Subjective Progress Note Date: 03/22/24 This is a very pleasant 68-year-old female who was recently admitted with gait dysfunction and frequent falls having significant back pain as well as knee pain. Patient does follow with oncology in the outpatient setting currently undergoing treatment for breast cancer. Patient reports to having significant difficulty in ambulation and continued swelling of the left knee making it more difficult to ambulate. Patient evaluated by physical therapy recommending rehab and patient is agreeable. Patient would like to gain strength and mobility prior to resuming oncology care. Patient is afebrile with no reported chest pain or shortness of breath. Patient reports to tolerating diet with no report ed nausea or vomiting. Will discuss further with case management regarding ECF as patient will require insurance authorization. Review of systems: Constitutional: No reports of fatigue, fever, or chills Cardiovascular: No reports of chest pain or palpitations Respiratory: No reports of shortness of breath or cough GI: No reports of nausea, no reports of vomiting, no diarrhea : No reports of dysuria or retention Neurovascular: reports of generalized weakness, continued low back pain and low er extremity weakness All medications have been reviewed PHYSICAL EXAMINATION: GENERAL: The patient is alert and oriented x4, Well developed, well nourished. Obese, elderly appearing HEENT: Pupils are round and equally reacting to light. EOMI. no scleral icterus. No conjunctival pallor. Normocephalic, atraumatic. No pharyngeal erythema. No thyromegaly. CARDIOVASCULAR: S1 and S2 muffled PULMONARY: diminished breath sounds bilaterally with no wheezing or rhonchi noted. ABDOMEN: soft. Nontender on exam. obese. non-distended, normoactive bowel sounds. No palpable organomegaly. MUSCULOSKELETAL: No joint swelling or deformity. EXTREMITIES: No cyanosis, clubbing, or pedal edema. Left lower extremity swelling and bruising noted NEUROLOGICAL: Gross neurological examination did not reveal any focal deficits. Diffuse weakness SKIN: No rashes. Assessment: Weakness, fall, gait dysfunction, imaging was negative for fractures Acute urinary tract infection, present on admission with E. coli with sensitivities Breast cancer, currently receiving chemotherapy Diabetes mellitus, type II Severe back pain as well as joint pain with history of degenerative joint disease GERD Hypothyroidism Obesity with a BMI of 36.6 GI prophylaxis DVT prophylaxis Full code Plan: Recommend to continue with current medications and management with multiple consultations following. Patient currently receiving chemotherapy with oncology for breast cancer although will remain on hold until outpatient follow-up as patient will be meeting ECF for continued strength and mobility. Patient is agreeable to hold all oncological care until discharge from ECF. Patient with progressive weakness and difficulty in ambulation and gait dysfunction would benefit from ECF on discharge. Patient continued on ceftriaxone and will continue as urine culture showed E. coli with sensitivities. Short course of Ceftin on discharge Case management following as patient will require insurance authorization which has been submitted and pending Encouraged increase activity as tolerated Encouraged oral intake Due to multiple complex medical issues, prognosis is guarded The impression and plan of care has been dictated by Marifer Velazco, nurse practitioner as directed. Dr. Param MD I have performed a history and examination and MDM of this patient, discussed the same with the dictator, and agree with the dictator's assessment and plan as written ,documented as a scribe. Based on total visit time, I have performed more than 50% of the visit. Any additional findings or plans will be noted. Objective - Vital Signs Vital signs: Vital Signs Temp 98.4 F 03/22/24 07:02 Pulse 96 03/22/24 07:02 Resp 16 03/22/24 07:02 BP 152/89 03/22/24 07:02 Pulse Ox 97 03/22/24 07:02 FiO2 Intake & Output 03/21/24 03/22/24 03/22/24 18:59 06:59 18:59 Output Total 500 200 Balance -500 -200 Output: Urine 500 200 Other: Voiding Method Diaper Incontinent External Catheter - Labs CBC & Chem 7: 03/22/24 07:28 03/22/24 07:28 Labs: Abnormal Lab Results - Last 24 Hours (Table) 03/21/24 Range/Units 05:56 Glucose 222 H (70-110) mg/dL Calcium 8.2 L (8.7-10.3) mg/dL Total Protein 5.1 L (6.2-8.2) g/dL Albumin 3.3 L (3.8-4.9) g/dL Microbiology - Last 24 Hours (Table) 03/19/24 16:30 Blood Culture - Preliminary Blood 03/19/24 16:45 Blood Culture - Preliminary Blood 03/19/24 12:00 Urine Culture - Final Urine,Clean Catch Escherichia coli
[2024-03-22 21:19] LABS: Glucose,Whole Blood 201 mg/dL (70-110)
[2024-03-23 07:15] LABS: Glucose,Whole Blood 166 mg/dL (70-110)
[2024-03-23 12:02] LABS: Glucose,Whole Blood 139 mg/dL (70-110)
[2024-03-23] MEDS: polyethylene glycoL 3350 17 GM POWD.PACK PO SCH (12:38)
[2024-03-23] MEDS: bisacodyL 10 MG SUPP RECTAL STA (12:38)
[2024-03-23] MEDS: LACTULOSE 20 GM/30 ML CUP PO SCH (12:38)
--- NOTE | 2024-03-23 13:13 | XR ---
EXAMINATION TYPE: XR abdomen complete w decub DATE OF EXAM: 03/23/2024 COMPARISON: NONE HISTORY: 68year-old female abdominal pain and constipation TECHNIQUE: Supine, upright, and left side down lateral decubitus views of the abdomen are obtained. FINDINGS: A right CVC is noted with tip near the cavoatrial junction. Lung bases appear clear. No evidence for free intraperitoneal air. Gas in colon. Suspect redundant sigmoid colon mildly dilated by 6.4 cm. Moderate stool within the cec um and ascending colon. No dilated small bowel or air-fluid levels. Cholecystectomy clips. IMPRESSION: 1. No evidence for free air or bowel obstruction. 2. Gassy, redundant sigmoid colon. 3. Moderate stool in the right side of the colon.
--- NOTE | 2024-03-23 13:50 | P.CNOR ---
History of Present Illness - [facility] Consult date: 03/23/24 Consult reason: low back pain ( 60) History of present illness: Patient is a 68-year-old female who was admitted to [facility] this past weekend after falling at home and being in her bathtub for about 8 hours prior to someone finding her. Patient has had frequent falls over the last few weeks. Patient has a known diagnosis of breast cancer that was diagnosed in October 2023, she had a previous breast cancer diagnosis in 1999. Patient has been undergoing chemotherapy for her breast cancer, she follows with Dr. Hernandes. An MRI of the brain was done in January 2024 which demonstrated likely meningioma. Patient was admitted to [facility] under internal medicine with multiple consults placed. Patient was complaining of spasming and weakness in the bilateral lower extremities along with low back pain, our orthopedic team was then consulted. Patient was evaluated today, she is resting in her hospital bed, she is very pleasant on exam. She states that the weakness in the bilateral lower extremities has been noticeable over the last 2 to 3 weeks. She admits to a numbness and tingling feeling in the lower legs past her knee and more of a spasming in the upper parts of the bilateral thighs. Up until a few weeks ago, she utilizes no assistive devices for ambulation She has noticed some paresthesias in the bilateral hands and feet since beginning chemotherapy. She has been constipated from the chemotherapy she states, she has no loss of bowel or bladder control at this time. Currently in the hospital being treated for urinary tract infection. She denies any previous surgery to the hips or knees or lower back. Patient underwent multiple x-rays, this to include bilateral knees, bilateral hips and pelvis and thoracic and lumbar spine. No acute fractures or dislocations were noted in any of the x-rays. At bedside today, patient is having minimal discomfort in her back. She has remained on [place] and Robaxin for pain control. She does have some generalized ache in the bilateral knees which she has had for many years, she feels that the falling may have exacerbated this. Review of Systems Constitutional: Reports as per HPI Past Medical History Past Medical History: Cancer, Diabetes Mellitus, GERD/Reflux, Hearing Disorder / Deafness, Thyroid Disorder Additional Past Medical History / Comment(s): Current left breast cancer. Diet Controlled Diabetes. Was to have PET Scan recently - cancelled due to high blood sugar of 331. Vertigo. Hx skin cancer in 2017. Hx left breast cancer in 1999. Migraines. Hemangioma, dizziness. Hard of hearing. "Mangeoma" History of Any Multi-Drug Resistant Organisms: None Reported Past Surgical History: Cholecystectomy, Hysterectomy, Tonsillectomy Additional Past Surgical History / Comment(s): Thyroidectomy for nodules, skin cancer removed, left breast lumpectomy(chemo and radiation). Past Anesthesia/Blood Transfusion Reactions: Motion Sickness, Postoperative Nausea & Vomiting (PONV) Additional Past Anesthesia/Blood Transfusion Reaction / Comm: Vertigo. Past Psychological History: No Psychological Hx Reported Additional Psychological History / Comment(s): Effexor for menopause symptoms. Smoking Status: Never smoker Past Alcohol Use History: None Reported Past Drug Use History: None Reported - Past Family History Mother Family Medical History: Cancer Additional Family Medical History / Comment(s): Sarcoma. Father Family Medical History: Cancer Additional Family Medical History / Comment(s): Colon cancer. Medications and Allergies Home Medications Medication Instructions Recorded Confirmed Type Levothyroxine Sodium [Synthroid] 175 mcg PO HS 10/15/23 03/19/24 History Venlafaxine HCl ER [Effexor XR] 75 mg PO HS 10/15/23 03/19/24 History Acetaminophen [Tylenol Extra 500 - 1,000 mg PO Q4-6H PRN 11/25/23 03/19/24 History Strength] Naproxen Sodium [Aleve] 220 - 440 mg PO Q8H PRN 01/22/24 03/19/24 History Magnesium Oxide [Magox 400] 400 mg PO DAILY 03/19/24 03/19/24 History Ondansetron [Zofran] 4 - 8 mg PO Q4H PRN 03/19/24 03/19/24 History Sennosides [Senokot] 17.2 mg PO HS 03/19/24 03/19/24 History Allergies Allergy/AdvReac Type Severity Reaction Status Date / Time cephalexin monohydrate AdvReac Nausea & Verified 03/19/24 17:39 [From Keflex] Vomiting propoxyphene HCl AdvReac Nausea & Verified 03/19/24 17:39 [From Darvon] Vomiting Physical Examination Osteopathic Statement: *. No significant issues noted on an osteopathic structural exam other than those noted in the History and Physical/Consult. Gen: AOx3, NAD VSS stable at this time Integument: No open lesions or sores are visualized throughout the cervical, thoracic or lumbar spine. There are no open lesions or sores or areas of erythema to the bilateral lower extremities Palpation: no significant tenderness appreciated with palpation of the lower thoracic and lumbar both paraspinal and midline region ROM: full range of motion in all major muscle groups of the bilateral upper extremities, no focal deficits appreciated patient demonstrates difficulty with hip flexion, knee extension and knee flexion, plantarflexion, dorsiflexion, EHL, FHL are intact Sensory Exam: Senory exam to light touch is intact C5-T1 Senosry exam to light touch is intact L2-S1 Motor: 4+/5 strength appreciated the bilateral upper extremities with shoulder elevation, shoulder abduction, , elbow extension, elbow flexion, wrist extension, wrist flexion, 3/5 strength appreciated the bilateral lower extremities with hip flexion, knee extension 3+/5 strength improved in the bilateral lower extremities with knee flexion 4-/5 strength appreciated in the bilateral lower extremities with plantarflexion, dorsiflexion, EHL, FHL Reflexes: negative Satinder's bilaterally negative clonus bilaterally Special Test: logroll maneuver reproduces no pain in the bilateral groin negative straight leg raise bilaterally Results - Labs Labs: Abnormal Lab Results - Last 24 Hours (Table) 03/22/24 03/22/24 03/23/24 Range/Units 17:02 21:17 07:13 POC Glucose (mg/dL) 216 H 201 H 166 H (70-110) mg/dL 03/23/24 Range/Units 12:01 POC Glucose (mg/dL) 139 H (70-110) mg/dL Microbiology - Last 24 Hours (Table) 03/19/24 16:30 Blood Culture - Preliminary Blood 03/19/24 16:45 Blood Culture - Preliminary Blood H & H 03/19/24 03/21/24 03/22/24 Range/Units 11:33 05:56 07:28 Hgb 10.4 L 9.5 L 10.0 L (11.4-16.0) gm/dL Hct 28.8 L 28.4 L 29.9 L (34.0-46.0) % Coagulation 03/19/24 Range/Units 11:33 INR 1.0 (<1.2) Result Diagrams: 03/22/24 07:28 03/22/24 07:28 Assessment and Plan Assessment: generalized weakness low back pain bilateral lower extremity weakness bilateral lower extremity radiculopathy multilevel lumbar spondylosis bilateral knee osteoarthritis history of frequent falls breast cancer multiple medical comorbidities Plan: Imaging: Multiple imaging tests were reviewed along with the reports. These to include bilateral knees and hips, left tibia/fibula, thoracic and lumbar x-rays. No acute fractures or dislocations were present. Mild osteoarthritic changes to the bilateral knees are noted, this to include medial joint space loss. X-ray reports of the lumbar spine noted some endplate deformity at the L3 vertebrae. Plan: I was able to discuss the case, this to include both physical exam findings and imaging studies my attending Dr. Espinal. CT scan of the lumbar spine without contrast will be ordered for further evaluation of bony anatomy. D iscussed with patient due to the lower extremity weakness, her current symptoms and history of cancer we may consider an MRI of the lumbar spine with and without to evaluate in further detail pain control, recommending continuing use of both Robaxin and [place] as needed weight-bear as tolerated, recommend use of walker at all times GI and DVT prophylaxis per primary medical service other medical specialty recommendations appreciated further recommendations to follow Time with Patient: Less than 30
--- NOTE | 2024-03-23 16:32 | P.PN ---
Subjective Progress Note Date: 03/23/24 This is a very pleasant 68-year-old female who was recently admitted with gait dysfunction and frequent falls having significant back pain as well as knee pain. Patient does follow with oncology in the outpatient setting currently undergoing treatment for breast cancer. Patient reports to having significant difficulty in ambulation and continued swelling of the left knee making it more difficult to ambulate. Patient evaluated by physical therapy recommending rehab and patient is agreeable. Patient would like to gain strength and mobility prior to resuming oncology care. Patient is afebrile with no reported chest pain or shortness of breath. Patient reports to tolerating diet with no report ed nausea or vomiting. Will discuss further with case management regarding ECF as patient will require insurance authorization. 03/23/2024 Patient is seen in follow-up this morning continues on ceftriaxone for urinary tract infection cultures growing E. coli with sensitivities. Patient reports sh e has not had a bowel movement in almost 5 days and will obtain abdominal x-ray and recommend bowel regimen including suppository. Patient with minimal gas passing and reports continued lower back pain and spasms especially in the lower extremities. Orthopedics consulted and appreciate input and recommendations. CT ordered and pending at this time. Patient is afebrile with no reported chest pain or shortness of breath. Patient reports feeling somewhat nauseated and will continue with Zofran as needed. Plan is for ECF on discharge and patient has been accepted at [facility]. Patient is agreeable to no oncological care during ECF and will follow-up with them in the outpatient setting once discharged from rehab. Review of systems: Constitutional: No reports of fatigue, fever, or chills Cardiovascular: No reports of chest pain or palpitations Respiratory: No reports of shortness of breath or cough GI: No reports of nausea, no reports of vomiting, no diarrhea, reports not passing much gas and has not had a bowel movement in 5 days : No reports of dysuria or retention Neurovascular: reports of generalized weakness, continued low back pain and lower extremity weakness with spasms and numbness All medications have been reviewed PHYSICAL EXAMINATION: GENERAL: The patient is alert and oriented x4, Well developed, well nourished. Obese, elderly appearing HEENT: Pupils are round and equally reacting to light. EOMI. no scleral icterus. No conjunctival pallor. Normocephalic, atraumatic. No pharyngeal erythema. No thyromegaly. CARDIOVASCULAR: S1 and S2 muffled PULMONARY: diminished breath sounds bilaterally with no wheezing or rhonchi noted. ABDOMEN: soft. Nontender on exam. obese. non-distended, normoactive bowel sounds. No palpable organomegaly. MUSCULOSKELETAL: No joint swelling or deformity. EXTREMITIES: No cyanosis, clubbing, or pedal edema. Left lower extremity swelling and bruising noted. Extremely sensitive on palpation to bilateral lower extremities NEUROLOGICAL: Gross neurological examination did not reveal any focal deficits. Diffuse weakness SKIN: No rashes. Assessment: Weakness, fall, gait dysfunction, imaging was negative for fractures Bilateral lower extremity spasms with numbness, no acute fractures noted, awaiting orthopedic evaluation Acute urinary tract infection, present on admission with E. coli with sensitivities Breast cancer, currently receiving chemotherapy Diabetes mellitus, type II Severe back pain as well as joint pain with history of degenerative joint disease Constipation GERD Hypothyroidism Obesity with a BMI of 36.6 GI prophylaxis DVT prophylaxis Full code Plan: Recommend to continue with current medications and management with multiple consultations following. Patient currently receiving chemotherapy with oncology for breast cancer although will remain on hold until outpatient follow-up as patient will be meeting ECF for continued strength and mobility. Patient is agreeable to hold all oncological care until discharge from ECF. Patient with progressive weakness and difficulty in ambulation and gait dysfunction would benefit from ECF on discharge. Patient continued on ceftriaxone and will continue as urine culture showed E. coli with sensitivities. Short course of Ceftin on discharge Patient having continued lower back pain and spasms of the lower extremities and difficulty with ambulation and reports is not ambulating. Orthopedics consulted and has ordered further imaging including CT and will discuss with them further regarding treatment plan. Case management following as patient Requires insurance authorization which has been obtained this afternoon. Patient reports no bowel movements in 5 days and will add suppository. Abdominal x-ray with no acute findings with stool burden noted and will give a suppository as well as bowel regimen Encouraged increase activity as tolerated Encouraged oral intake Due to multiple complex medical issues, prognosis is guarded Possible discharge planning in the next 24 to 48 hours The impression and plan of care has been dictated by Marifer Velazco, nurse practitioner as directed. Dr. Param MD I have performed a history and examination and MDM of this patient, discussed the same with the dictator, and agree with the dictator's assessment and plan as written ,documented as a scribe. Based on total visit time, I have performed more than 50% of the visit. Any additional findings or plans will be noted. Objective - Vital Signs Vital signs: Vital Signs Temp 97.7 F 03/23/24 07:11 Pulse 90 03/23/24 07:11 Resp 16 03/23/24 07:11 BP 114/74 03/23/24 07:11 Pulse Ox 97 03/23/24 07:11 FiO2 Intake & Output 03/22/24 03/23/24 03/23/24 18:59 06:59 18:59 Intake Total 120 Balance 120 Intake: Oral 120 Other: Voiding Method Diaper Diaper Diaper Incontinent Incontinent Incontinent External Catheter External Catheter External Catheter # Voids 2 1 1 - Labs CBC & Chem 7: 03/22/24 07:28 03/22/24 07:28 Labs: Abnormal Lab Results - Last 24 Hours (Table) 03/22/24 03/22/24 03/23/24 Range/Units 17:02 21:17 07:13 POC Glucose (mg/dL) 216 H 201 H 166 H (70-110) mg/dL Microbiology - Last 24 Hours (Table) 03/19/24 16:30 Blood Culture - Preliminary Blood 03/19/24 16:45 Blood Culture - Preliminary Blood
[2024-03-23 17:02] LABS: Glucose,Whole Blood 163 mg/dL (70-110)
--- NOTE | 2024-03-23 18:21 | CT ---
EXAMINATION TYPE: CT lumbar spine wo con DATE OF EXAM: 03/23/2024 COMPARISON: HISTORY: Back pain, lower extremity weakness. CT DLP: 1487.9 mGycm CONTRAST: CT scan of the lumbar is performed , patient injected with mL of . TECHNIQUE: CT of the lumbar spine is performed on a spiral scan at 3 mm thick sections. Reconstructed images are performed in the coronal and sagittal planes. FINDINGS: T12-L1: No focal disc herniation or significant disc bulge is evident. No spinal canal stenosis or neural foraminal stenosis is present. L1-L2: No focal disc herniation or significant disc bulge is evident. No spinal canal stenosis or n eural foraminal stenosis is present L2-L3: There is a compression deformity of L3 superior endplate. Posterior wall displacement is prese nt. AP spinal canal stenosis not present. The posterior superior endplate of L3 appears to be displa alanna approximately 0.6 cm. This is age indeterminant. This could be acute. Significant adjacent swelli ng however is not evident. Vacuum disc phenomenon is present. The disc height appears preserved. L3-L4: Broad-based disc bulge with mild anterior thecal sac compression. Facet hypertrophy and ligame ntum flavum laxity may be contributing to some mild spinal canal stenosis. L4-L5: Facet hypertrophy is contributing to severe bilateral foraminal stenosis. Ligamentum flavum la xity is posterior lateral segment impression. Some lateral canal narrowing may be present. AP spinal canal stenosis is not present. L5-S1: No focal disc herniation or significant disc bulge is evident. No spinal canal stenosis or n eural foraminal stenosis is present Vertebral alignment appears normal. IMPRESSION: 1. Superior 3 endplate compression deformity of indeterminate age potentially could be acute. This mckay s up to 0.6 cm posterior superior endplate displacement into the spinal canal without spinal canal st enosis. Mild narrowing may be present. 2. More moderate spinal canal stenosis due to disc bulging and facet hypertrophy L3-4. 3. Severe bilateral foraminal stenosis due to facet hypertrophy L4-5.
[2024-03-23 20:44] LABS: Glucose,Whole Blood 124 mg/dL (70-110)
[2024-03-24 07:58] LABS: Glucose,Whole Blood 126 mg/dL (70-110)
[2024-03-24 08:11] VITALS: RESP 18
[2024-03-24 11:47] LABS: Glucose,Whole Blood 167 mg/dL (70-110)
--- NOTE | 2024-03-24 11:57 | P.PN ---
Subjective Progress Note Date: 03/24/24 Principal diagnosis: Low back pain, bilateral lower extremity weakness, L3 VCF Patient was examined today at bedside, she is resting in her hospital chair. She was able to get up today with the assistance of physical therapy and the use of the walker. She seems to moving the legs a little bit better today. She continues to notice the numbness and tingling to the bilateral lower extremities. No bowel or bladder incontinence at this time. She denies any numbness or tingling to the perineal or genital region. Objective - Vital Signs Vital signs: Vital Signs Temp 98.1 F 03/24/24 07:00 Pulse 88 03/24/24 07:00 Resp 18 03/24/24 07:00 BP 138/65 03/24/24 07:00 Pulse Ox 96 03/24/24 11:15 FiO2 Intake & Output 03/23/24 03/24/24 03/24/24 18:59 06:59 18:59 Intake Total 240 100 Balance 240 100 Intake: Oral 240 100 Other: Voiding Method Diaper Diaper Incontinent Incontinent External Catheter # Voids 1 1 # Bowel Movements 1 - Exam Gen: AOx3, NAD VSS stable at this time Integument: No open lesions or sores are visualized throughout the cervical, thoracic or lumbar spine. There are no open lesions or sores or areas of erythema to the bilateral lower extremities Palpation: no significant tenderness appreciated with palpation of the lower thoracic and lumbar both paraspinal and midline region ROM: full range of motion in all major muscle groups of the bilateral upper extremities, no focal deficits appreciated patient demonstrates difficulty with hip flexion, knee extension and knee flexion, plantarflexion, dorsiflexion, EHL, FHL are intact Sensory Exam: Senory exam to light touch is intact C5-T1 Senosry exam to light touch is intact L2-S1 Motor: 4+/5 strength appreciated the bilateral upper extremities with shoulder elevation, shoulder abduction, , elbow extension, elbow flexion, wrist extension, wrist flexion, 3+/5 strength appreciated the bilateral lower extremities with hip flexion, knee extension 4-/5 strength improved in the bilateral lower extremities with knee flexion 4-/5 strength appreciated in the bilateral lower extremities with plantarflexio n, dorsiflexion, EHL, FHL Reflexes: negative Satinder's bilaterally negative clonus bilaterally Special Test: logroll maneuver reproduces no pain in the bilateral groin negative straight leg raise bilaterally - Labs CBC & Chem 7: 03/22/24 07:28 03/22/24 07:28 Labs: Abnormal Lab Results - Last 24 Hours (Table) 03/23/24 03/23/24 03/23/24 Range/Units 12:01 17:01 20:43 POC Glucose (mg/dL) 139 H 163 H 124 H (70-110) mg/dL 03/24/24 03/24/24 Range/Units 07:57 11:46 POC Glucose (mg/dL) 126 H 167 H (70-110) mg/dL Assessment and Plan Assessment: generalized weakness low back pain acute on chronic L3 VCF bilateral lower extremity weakness bilateral lower extremity radiculopathy multilevel lumbar spondylosis bilateral knee osteoarthritis history of frequent falls breast cancer multiple medical comorbidities Plan: Imaging: Reports and images reviewed of the lumbar CT scan with and without contrast. Images did confirm the multiple levels of lumbar spondylosis with varying degrees of foraminal and central canal stenosis. Endplate changes noted along the superior aspect of the L3 vertebral body. Vacuum disc phenomenon present. They did note the posterior aspect of the superior endplate does displace posteriorly. Plan: No further imaging studies are recommended at this time. Discussed with patient we would like to utilize an LSO brace to help stabilize and provide more support when ambulating. A prescription was placed in the chart, nursing was notified to contact case management with regards to fitting patient. Discussed with patient that we would like to see how she does with the physical therapy at subacute rehab. We will plan to follow-up with patient in office in 2 weeks for recheck of both x-ray and clinical evaluation. Pain control, recommending continuing use of both Robaxin and [place] as needed weight-bear as tolerated, recommend use of walker at all times GI and DVT prophylaxis per primary medical service Other medical specialty recommendations appreciated Orthopedically patient remained stable at this time for follow-up in the outpatient setting Time with Patient: Less than 30
--- NOTE | 2024-03-24 13:48 | P.DS ---
Providers Date of admission: 03/19/24 15:53 Expected date of discharge: 03/24/24 Attending physician: Linda Marte Consults: 03/19/24 15:32 Consult Physician Urgent Consulting Provider: Che Hernandes Consult Reason/Comments: Breast cancer patient Do you want consulting provider notified?: Yes 03/23/24 11:52 Consult Physician Urgent Consulting Provider: Calderon Espinal Consult Reason/Comments: back pain, numbness lower extremities, weak, falls Do you want consulting provider notified?: Yes Primary care physician: Stated None Hospital Course: Final diagnosis Weakness, fall, gait dysfunction, imaging was negative for fractures Bilateral lower extremity spasms with numbness, no acute fractures noted, likely secondary to acute on chronic L3 VCF with bilateral lower extremity radiculopathy Multilevel lumbar spondylosis Bilateral knee osteoarthritis Acute urinary tract infection, present on admission with E. coli with sensitivities Breast cancer, currently receiving chemotherapy Diabetes mellitus, type II Severe back pain as well as joint pain with history of degenerative joint disease Constipation GERD Hypothyroidism Obesity with a BMI of 36.6 GI prophylaxis DVT prophylaxis Full code Discharge disposition Patient is being discharged in a stable condition with guarded prognosis to [facility]. Patient will follow-up with Dr. Moore in the outpatient setting upon discharge. Patient is to continue with current medications including Ceftin 500 mg twice daily for the next 3 days. Recommend outpatient follow-up with orthopedics as scheduled. Patient is agreeable to no oncological care while at [facility] and will follow-up with her oncologist on discharge from rehab. Total time taken is greater than 35 minutes. Hospital course This is a 68-year-old female who was recently admitted with gait dysfunction and frequent falls having bilateral lower extremity numbness and some back pain being closely monitored. Patient also found to have an acute urinary tract infection with cultures finalizing showing E. coli and has been maintained on ceftriaxone. Patient will continue with oral Ceftin twice daily for the next 3 days to complete the course. Patient follows with oncology as she is actively receiving treatment for breast cancer with chemotherapy and has been having progressive weakness and gait dysfunction with inability to ambulate and back pain. Patient is agreeable to holding all oncological care and treatment follow-up until discharge from [facility] as she was evaluated by physical therapy recommending EC for continued strength and mobility. Patient is agreeable and oncology is aware. Patient having some continued lower back pain, spasms of the legs and numbness with paresthesias of the lower extremities underwent CT and x- ray imaging with no acute fractures noted although there is multilevel lumbar spondylosis with osteoarthritis and stenosis noted. Patient was evaluated by orthopedics recommending conservative management for now and LSO brace which is being ordered. Patient would like to continue with conservative management and has been instructed to follow-up with orthopedics outpatient for further evaluation in the next 2 to 3 weeks with repeat imagings at that time. Patient had a bit of constipation although placed on bowel regimen and recommend to continue with scheduled as well as as needed bowel regimen. Patient is a diabetic and with continuous consistent carb diet with sliding scale and Accu- Cheks before meals and at bedtime. Please refer to other consultation notes for further HPI. Patient has been cleared for discharge to [facility]. Currently no reports of chest pain, shortness of breath, or palpitations. Patient is afebrile. No reports of nausea or vomiting and patient is tolerating diet. Patient will be going to [facility] today. Guarded prognosis Physical exam: Gen: This is a 68-year-old female who is awake, alert and oriented x 3, well- developed, well-nourished, obese HEENT: Head is atraumatic, normocephalic. Pupils equal, round. Sclerae is anicteric. NECK: Supple. No JVD. No lymphadenopathy. No thyromegaly. LUNGS: Diminished breath sounds bilaterally otherwise clear to auscultation. No wheezes or rhonchi. No intercostal retractions. HEART: S1, S2 are muffled ABDOMEN: Soft. Obese bowel sounds are present. No masses. No tenderness. EXTREMITIES: No pedal edema. No calf tenderness. Bilateral lower extremity weakness with chronic generalized edema noted NEUROLOGICAL: Patient is awake, alert and oriented x3. Cranial nerves 2 through 12 are grossly intact. Diffusely weak Please refer to medication reconciliation sheet for a list of medications. The impression and plan of care has been dictated by Nurse Daly Prac titioner as directed. Dr. Param MD I have performed a history and examination and MDM of this patient, discussed the same with the dictator, and agree with the dictator's assessment and plan as written ,documented as a scribe. Based on total visit time, I have performed more than 50% of the visit. Patient Condition at Discharge: Fair Plan - Discharge Summary Discharge Rx Participant: No New Discharge Prescriptions: New polyethylene glycoL 3350 [Miralax] 17 gm PO DAILY packet Nystatin 100,000 Unit/gm Powd [Mycostatin Powder] 1 applic TOPICAL BID each INSULIN ASPART (NovoLOG) [NovoLOG (formulary)] 0 unit SQ ACHS each Pantoprazole [Protonix] 40 mg PO AC-BRKFST tab methocarbamoL [Robaxin] 500 mg PO TID PRN tab PRN Reason: Muscle Spasm Lactulose [Cephulac] 20 gm PO BID PRN #100 ml PRN Reason: Constipation Heparin Sodium,Porcine (1 ml) [Heparin Sodium] 5,000 unit SQ Q12HR each HYDROcodone/APAP 5-325MG [Chassell 5-325] 1 each PO Q4HR PRN #4 tab PRN Reason: Moderate Pain (Scale 4 To 6) cefUROXime axetiL [Cefuroxime] 500 mg PO BID 3 Days #6 tab Continue Venlafaxine HCl ER [Effexor XR] 75 mg PO HS Acetaminophen [Tylenol Extra Strength] 500 - 1,000 mg PO Q4-6H PRN PRN Reason: Pain Naproxen Sodium [Aleve] 220 - 440 mg PO Q8H PRN PRN Reason: Pain Levothyroxine Sodium [Synthroid] 175 mcg PO HS Ondansetron [Zofran] 4 - 8 mg PO Q4H PRN PRN Reason: Nausea Magnesium Oxide [Magox 400] 400 mg PO DAILY Sennosides [Senokot] 17.2 mg PO HS Discharge Medication List Levothyroxine Sodium [Synthroid] 175 mcg PO HS 10/15/23 [History] Venlafaxine HCl ER [Effexor XR] 75 mg PO HS 10/15/23 [History] Acetaminophen [Tylenol Extra Strength] 500 - 1,000 mg PO Q4-6H PRN 11/25/23 [History] Naproxen Sodium [Aleve] 220 - 440 mg PO Q8H PRN 01/22/24 [History] Magnesium Oxide [Magox 400] 400 mg PO DAILY 03/19/24 [History] Ondansetron [Zofran] 4 - 8 mg PO Q4H PRN 03/19/24 [History] Sennosides [Senokot] 17.2 mg PO HS 03/19/24 [History] HYDROcodone/APAP 5-325MG [Chassell 5-325] 1 each PO Q4HR PRN #4 tab 03/24/24 [Rx] Heparin Sodium,Porcine (1 ml) [Heparin Sodium] 5,000 unit SQ Q12HR each 03/24/24 [Rx] INSULIN ASPART (NovoLOG) [NovoLOG (formulary)] 0 unit SQ ACHS each 03/24/24 [R x] Lactulose [Cephulac] 20 gm PO BID PRN #100 ml 03/24/24 [Rx] Nystatin 100,000 Unit/gm Powd [Mycostatin Powder] 1 applic TOPICAL BID each 03/24/24 [Rx] Pantoprazole [Protonix] 40 mg PO AC-BRKFST tab 03/24/24 [Rx] cefUROXime axetiL [Cefuroxime] 500 mg PO BID 3 Days #6 tab 03/24/24 [Rx] methocarbamoL [Robaxin] 500 mg PO TID PRN tab 03/24/24 [Rx] polyethylene glycoL 3350 [Miralax] 17 gm PO DAILY packet 03/24/24 [Rx] Follow up Appointment(s)/Referral(s): Calderon Espinal DO [Doctor of Osteopathic Medicine] - 2 Weeks Lennox Hernandes MD [Family Provider] - 04/07/24 11:00 am Arden Moore MD [STAFF PHYSICIAN] - 1 Week Activity/Diet/Wound Care/Special Instructions: Patient is going to [place] Activity as tolerated Continue consistent carb diet Continue sliding scale as needed NovoLog sliding scale 0-150 equals 0 units 151-200 equals 2 units 201-250 equals 4 units 251-300 equals 6 units 301-350 equals 8 units 351-400 equals 10 units Please notify provider if blood sugar is 400 or above Follow-up with oncology outpatient once discharged from [facility] Follow-up to establish with primary care provider in the outpatient setting Follow-up with orthopedics outpatient in the next few weeks Continue with LSO brace and continued PT/OT therapy Continue antibiotics in the form of Ceftin 500 mg twice daily for the next 3 days to complete the course Continue with bowel regimen as needed and scheduled Discharge Disposition: TRANSFER TO SNF/F
[2024-03-24 13:57] VITALS: BP 146/77; PULSE 94; TEMP 98.6
== END 2024-03-24 17:26 | DRG 690 ==
LOC: EC 11:01 → 5NMEDONC 15:53
PROVIDERS: ADMIT Hospitalist; ATTEND Hospitalist
DX: N39.0 Urinary tract infection, site not specified (principal); D84.9 Immunodeficiency, unspecified; D64.9 Anemia, unspecified; C50.912 Malignant neoplasm of unspecified site of left female breast; Z68.36 Body mass index [BMI] 36.0-36.9, adult; E11.9 Type 2 diabetes mellitus without complications; E66.9 Obesity, unspecified; R29.6 Repeated falls; S80.12XA Contusion of left lower leg, initial encounter; Z85.3 Personal history of malignant neoplasm of breast; Z91.81 History of falling; M48.061 Spinal stenosis, lumbar region without neurogenic claudication; Z90.49 Acquired absence of other specified parts of digestive tract; B96.20 Unspecified Escherichia coli [E. coli] as the cause of diseases classified elsewhere; E03.9 Hypothyroidism, unspecified; Z79.890 Hormone replacement therapy; H91.90 Unspecified hearing loss, unspecified ear; K21.9 Gastro-esophageal reflux disease without esophagitis; M17.0 Bilateral primary osteoarthritis of knee; M47.26 Other spondylosis with radiculopathy, lumbar region; Z90.710 Acquired absence of both cervix and uterus; Z85.828 Personal history of other malignant neoplasm of skin; Z88.1 Allergy status to other antibiotic agents
CPT/HCPCS: 36415; 71046; 72072; 72100; 72131; 73521; 74021; 80048; 80053; 81001; 82550; 83036; 83605; 83735; 84439; 84443; 84484; 85025; 85610; 85730; 87040; 87077; 87086; 87186; 93005; 94760; 96361; 96374; 99285

== ENCOUNTER 2024-06-30 18:11 | Inpatient (IN) | payer MEDICARE, BC ==
--- NOTE | 2024-06-30 19:23 | ED ---
General Adult HPI - General Chief complaint: Weakness Stated complaint: FALL Time Seen by Provider: 06/30/24 18:38 Source: patient, family, EMS, RN notes reviewed Mode of arrival: EMS Limitations: no limitations - History of Present Illness Initial comments: Patient is a 69-year-old female present to the emergency department after being found on the ground by family. Patient has been hallucinating recently. Patient believes family members are there that are not. Patient believes they went to a movie however was not in a movie theater. Patient believes her sister is making appointments and doing health care for her when she has not. Sister is present to help provide The Patient's History. Patient Has Chronic Dizziness and Does Not Really Walk. Patient States She Decided to Sleep on the Floor Last Night Because She Was Having Problems with Her Bed and She Thought It Might Be More Comfortable. Patient Was Unable to Get up from the Floor Today Secondary to Her Chronic Dizziness. Patient States Dizziness Feels Better at This Time. - Related Data Home Medications Medication Instructions Recorded Confirmed Levothyroxine Sodium [Synthroid] 175 mcg PO HS 10/15/23 03/19/24 Venlafaxine HCl ER [Effexor XR] 75 mg PO HS 10/15/23 03/19/24 Acetaminophen [Tylenol Extra 500 - 1,000 mg PO Q4-6H PRN 11/25/23 03/19/24 Strength] Naproxen Sodium [Aleve] 220 - 440 mg PO Q8H PRN 01/22/24 03/19/24 Magnesium Oxide [Magox 400] 400 mg PO DAILY 03/19/24 03/19/24 Ondansetron [Zofran] 4 - 8 mg PO Q4H PRN 03/19/24 03/19/24 Sennosides [Senokot] 17.2 mg PO HS 03/19/24 03/19/24 Previous Rx's Medication Instructions Recorded HYDROcodone/APAP 5-325MG [Clayton 1 each PO Q4HR PRN #4 tab 03/24/24 5-325] Heparin Sodium,Porcine (1 ml) 5,000 unit SQ Q12HR each 03/24/24 [Heparin Sodium] INSULIN ASPART (NovoLOG) [NovoLOG 0 unit SQ ACHS each 03/24/24 (formulary)] Lactulose [Cephulac] 20 gm PO BID PRN #100 ml 03/24/24 Nystatin 100,000 Unit/gm Powd 1 applic TOPICAL BID each 03/24/24 [Mycostatin Powder] Pantoprazole [Protonix] 40 mg PO AC-BRKFST tab 03/24/24 cefUROXime axetiL [Cefuroxime] 500 mg PO BID 3 Days #6 tab 03/24/24 methocarbamoL [Robaxin] 500 mg PO TID PRN tab 03/24/24 polyethylene glycoL 3350 [Miralax] 17 gm PO DAILY packet 03/24/24 Allergies Allergy/AdvReac Type Severity Reaction Status Date / Time cephalexin monohydrate AdvReac Nausea & Verified 03/19/24 17:39 [From Keflex] Vomiting propoxyphene HCl AdvReac Nausea & Verified 03/19/24 17:39 [From Darvon] Vomiting Review of Systems ROS Statement: Those systems with pertinent positive or pertinent negative responses have been documented in the HPI. ROS Other: All systems not noted in ROS Statement are negative. Constitutional: Denies: fever Eyes: Denies: eye pain ENT: Denies: ear pain Respiratory: Denies: dyspnea Cardiovascular: Denies: chest pain Endocrine: Denies: fatigue Gastrointestinal: Denies: abdominal pain Neurological: Reports: vertigo. Denies: headache Past Medical History Past Medical History: Cancer, Diabetes Mellitus, GERD/Reflux, Hearing Disorder / Deafness, Thyroid Disorder Additional Past Medical History / Comment(s): Current left breast cancer. Diet Controlled Diabetes. Was to have PET Scan recently - cancelled due to high blood sugar of 331. Vertigo. Hx skin cancer in 2017. Hx left breast cancer in 1999. Migraines. Hemangioma, dizziness. Hard of hearing. "Mangeoma" History of Any Multi-Drug Resistant Organisms: None Reported Past Surgical History: Cholecystectomy, Hysterectomy, Tonsillectomy Additional Past Surgical History / Comment(s): Thyroidectomy for nodules, skin cancer removed, left breast lumpectomy(chemo and radiation). Past Anesthesia/Blood Transfusion Reactions: Motion Sickness, Postoperative Nausea & Vomiting (PONV) Additional Past Anesthesia/Blood Transfusion Reaction / Comment(s): Vertigo. Past Psychological History: No Psychological Hx Reported Smoking Status: Never smoker Past Alcohol Use History: None Reported Past Drug Use History: None Reported - Past Family History Mother Family Medical History: Cancer Additional Family Medical History / Comment(s): Sarcoma. Father Family Medical History: Cancer Additional Family Medical History / Comment(s): Colon cancer. General Exam Limitations: no limitations General appearance: alert, in no apparent distress Head exam: Present: atraumatic, normocephalic Eye exam: Present: normal appearance, PERRL, EOMI. Absent: nystagmus ENT exam: Present: normal oropharynx Neck exam: Present: normal inspection. Absent: tenderness, meningismus Respiratory exam: Present: normal lung sounds bilaterally Cardiovascular Exam: Present: regular rate, normal rhythm GI/Abdominal exam: Present: soft. Absent: tenderness Extremities exam: Present: full ROM, pedal edema. Absent: tenderness Neurological exam: Present: alert Expanded Neurological exam: Present: protecting the airway Patient oriented to: Present: person, place. Absent: time Speech: Present: fluid speech Cranial nerves: EOM's Intact: Normal Motor strength exam: RUE: 5, LUE: 5, RLE: 4, LLE: 4 Eye Response: (4) open spontaneously Motor Response: (6) obeys commands Verbal Response: (4) confused conversation Psychiatric exam: Present: normal affect, normal mood Skin exam: Present: normal color Course Vital Signs 06/30/24 18:19 Pulse Rate 108 H Respiratory 18 Rate Blood Pressure 123/70 O2 Sat by Pulse 98 Oximetry EKG Findings - EKG Results: EKG: interpreted by DICK, sinus rhythm, normal axis, normal QRS, normal ST/T EKG shows: tachycardia Medical Decision Making - Medical Decision Making Was pt. sent in by a medical professional or institution (, PA, SYSTEM SAFETY ENGINEER, urgent care, hospital, or skilled nursing...) When possible be specific @ -No Did you speak to anyone other than the patient for history (EMS, parent, family, police, friend...)? What history was obtained from this source @ -Sister is present and helps provide history including patient's hallucinations Did you review nursing and triage notes (agree or disagree)? Why? @ -I reviewed and agree with nursing and triage notes Were old charts reviewed (outside hosp., previous admission, EMS record, old EKG, old radiological studies, urgent care reports/EKG's, skilled nursing records)? Report findings @ -No old charts were reviewed Differential Diagnosis (chest pain, altered mental status, abdominal pain women, abdominal pain men, vaginal bleeding, weakness, fever, dyspnea, syncope, headache, dizziness, GI bleed, back pain, seizure, CVA, palpatations, mental health, musculoskeletal)? @ -Differential Altered Mental Status: Hypoglycemia, DKA, hypercapnia, ETOH, overdose, CO poisoning, trauma, myxedema coma, HTN encephalopathy, infection, encephalitis, psychosis, intercranial hemorrhage, hepatic encephalopathy, meningitis, CVA, this is not meant to be an all-inclusive list EKG interpreted by me (3pts min.). @ -As above X-rays interpreted by me (1pt min.). @ -Chest x-ray shows no acute process CT interpreted by me (1pt min.). @ -Brain without acute abnormality U/S interpreted by me (1pt. min.). @ -None done What testing was considered but not performed or refused? (CT, X-rays, U/S, labs)? Why? @ -None What meds were considered but not given or refused? Why? @ -None Did you discuss the management of the patient with other professionals (professionals i.e. , PA, SYSTEM SAFETY ENGINEER, lab, RT, psych nurse, social work supervisor, stove polisher, teacher, special technical operations officer, case monitor)? Give summary @ -Patient's primary care physician Dr. Pichardo Was smoking cessation discussed for >3mins.? @ -No Was critical care preformed (if so, how long)? @ -No Were there social determinants of health that impacted care today? How? (Homelessness, low income, unemployed, alcoholism, drug addiction, transportation, low edu. Level, literacy, decrease access to med. care, [place] [facility], rehab)? @ -No Was there de-escalation of care discussed even if they declined (Discuss DNR or withdrawal of care, Hospice)? DNR status @ -No What co-morbidities impacted this encounter? (DM, HTN, Smoking, COPD, CAD, Cancer, CVA, ARF, Chemo, Hep., AIDS, mental health diagnosis, sleep apnea, morbid obesity)? @ -None Was patient admitted / discharged? Hospital course, mention meds given and route, prescriptions, significant lab abnormalities, going to OR and other pertinent info. @ -Patient presents with hallucinations and change in mental status. Patient was sleeping on the ground and unable to get up on her own. Patient has continuation of this. Patient has evidence of urinary tract infection. Case discussed with Dr. Pichardo who will admit his patient with consult. Admission orders placed Undiagnosed new problem with uncertain prognosis? @ -No Drug Therapy requiring intensive monitoring for toxicity (Heparin, Nitro, Insulin, Cardizem)? @ -No Were any procedures done? @ -No Diagnosis/symptom? @ -Hallucinations, altered mental status, urinary tract infect Acute, or Chronic, or Acute on Chronic? @ -Acute, acute, acute Uncomplicated (without systemic symptoms) or Complicated (systemic symptoms)? @ -Default Side effects of treatment? @ -No Exacerbation, Progression, or Severe Exacerbation? @ -No Poses a threat to life or bodily function? How? (Chest pain, [place], [place], pneumonia, PE, COPD, DKA, ARF, appy, cholecystitis, CVA, Diverticulitis, Homicidal, S uicidal, threat to staff... and all critical care pts) @ -No - Lab Data Result diagrams: 06/30/24 19:25 06/30/24 19:25 Lab Results 06/30/24 06/30/24 06/30/24 Range/Units 19:18 19:25 19:25 WBC 10.3 (3.8-10.6) k/uL RBC 4.21 (3.80-5.40) m/uL Hgb 12.3 (11.4-16.0) gm/dL Hct 37.0 (34.0-46.0) % MCV 87.9 (80.0-100.0) fL MCH 29.1 (25.0-35.0) pg MCHC 33.2 (31.0-37.0) g/dL RDW 12.5 (11.5-15.5) % Plt Count 264 (150-450) k/uL MPV 7.0 Neutrophils % 79 % Lymphocytes % 12 % Monocytes % 7 % Eosinophils % 1 % Basophils % 0 % Neutrophils # 8.1 H (1.3-7.7) k/uL Lymphocytes # 1.2 (1.0-4.8) k/uL Monocytes # 0.7 (0-1.0) k/uL Eosinophils # 0.1 (0-0.7) k/uL Basophils # 0.0 (0-0.2) k/uL PT 10.8 (10.0-12.5) sec INR 1.0 (<1.2) APTT 23.3 (22.0-30.0) sec Sodium (137-145) mmol/L Potassium (3.5-5.1) mmol/L Chloride (98-107) mmol/L Carbon Dioxide (22-30) mmol/L Anion Gap mmol/L BUN (7-17) mg/dL Creatinine (0.52-1.04) mg/dL Est GFR (CKD-EPI)AfAm (>60 ml/min/1.73 sqM) Est GFR (CKD-EPI)NonAf (>60 ml/min/1.73 sqM) Glucose (74-99) mg/dL Calcium (8.4-10.2) mg/dL Total Bilirubin (0.2-1.3) mg/dL AST (14-36) U/L ALT (4-34) U/L Alkaline Phosphatase (38-126) U/L Creatine Kinase (30-135) U/L Troponin I (0.000-0.034) ng/mL Total Protein (6.3-8.2) g/dL Albumin (3.5-5.0) g/dL Urine Color Yellow Urine Appearance Cloudy H (Clear) Urine pH 5.5 (5.0-8.0) Ur Specific [place] 1.031 (1.001-1.035) Urine Protein 1+ H (Negative) Urine Glucose (UA) Negative (Negative) Urine Ketones 3+ H (Negative) Urine Blood Negative (Negative) Urine Nitrite Negative (Negative) Urine Bilirubin Negative (Negative) Urine Urobilinogen 3.0 (<2.0) mg/dL Ur Leukocyte Esterase Large H (Negative) Urine RBC 11 H (0-5) /hpf Urine WBC 41 H (0-5) /hpf Ur Squamous Epith Cells 8 H (0-4) /hpf Urine Bacteria Rare H (None) /hpf Urine Opiates Screen (NotDetected) Ur Oxycodone Screen (NotDetected) Urine Methadone Screen (NotDetected) Ur Barbiturates Screen (NotDetected) U Tricyclic Antidepress (NotDetected) Ur Phencyclidine Scrn (NotDetected) Ur Amphetamines Screen (NotDetected) U Methamphetamines Scrn (NotDetected) U Benzodiazepines Scrn (NotDetected) Urine Cocaine Screen (NotDetected) U Marijuana (THC) Screen (NotDetected) 06/30/24 06/30/24 06/30/24 Range/Units 19:25 19:25 20:58 WBC (3.8-10.6) k/uL RBC (3.80-5.40) m/uL Hgb (11.4-16.0) gm/dL Hct (34.0-46.0) % MCV (80.0-100.0) fL MCH (25.0-35.0) pg MCHC (31.0-37.0) g/dL RDW (11.5-15.5) % Plt Count (150-450) k/uL MPV Neutrophils % % Lymphocytes % % Monocytes % % Eosinophils % % Basophils % % Neutrophils # (1.3-7.7) k/uL Lymphocytes # (1.0-4.8) k/uL Monocytes # (0-1.0) k/uL Eosinophils # (0-0.7) k/uL Basophils # (0-0.2) k/uL PT (10.0-12.5) sec INR (<1.2) APTT (22.0-30.0) sec Sodium 139 (137-145) mmol/L Potassium 3.4 L (3.5-5.1) mmol/L Chloride 106 (98-107) mmol/L Carbon Dioxide 24 (22-30) mmol/L Anion Gap 9 mmol/L BUN 36 H (7-17) mg/dL Creatinine 0.75 (0.52-1.04) mg/dL Est GFR (CKD-EPI)AfAm >90 (>60 ml/min/1.73 sqM) Est GFR (CKD-EPI)NonAf 82 (>60 ml/min/1.73 sqM) Glucose 99 (74-99) mg/dL Calcium 9.1 (8.4-10.2) mg/dL Total Bilirubin 0.9 (0.2-1.3) mg/dL AST 30 (14-36) U/L ALT 12 (4-34) U/L Alkaline Phosphatase 105 (38-126) U/L Creatine Kinase 417 H (30-135) U/L Troponin I <0.012 (0.000-0.034) ng/mL Total Protein 6.0 L (6.3-8.2) g/dL Albumin 3.6 (3.5-5.0) g/dL Urine Color Urine Appearance (Clear) Urine pH (5.0-8.0) Ur Specific [place] (1.001-1.035) Urine Protein (Negative) Urine Glucose (UA) (Negative) Urine Ketones (Negative) Urine Blood (Negative) Urine Nitrite (Negative) Urine Bilirubin (Negative) Urine Urobilinogen (<2.0) mg/dL Ur Leukocyte Esterase (Negative) Urine RBC (0-5) /hpf Urine WBC (0-5) /hpf Ur Squamous Epith Cells (0-4) /hpf Urine Bacteria (None) /hpf Urine Opiates Screen Not Detected (NotDetected) Ur Oxycodone Screen Not Detected (NotDetected) Urine Methadone Screen Not Detected (NotDetected) Ur Barbiturates Screen Not Detected (NotDetected) U Tricyclic Antidepress Detected H (NotDetected) Ur Phencyclidine Scrn Not Detected (NotDetected) Ur Amphetamines Screen Not Detected (NotDetected) U Methamphetamines Scrn Not Detected (NotDetected) U Benzodiazepines Scrn Not Detected (NotDetected) Urine Cocaine Screen Not Detected (NotDetected) U Marijuana (THC) Screen Not Detected (NotDetected) Disposition Clinical Impression: Altered mental status, UTI (urinary tract infection), Hallucinations Disposition: ADMITTED IP TO THIS HOSP Is patient prescribed a controlled substance at d/c from ED?: No Referrals: Bright Hopkins MD [Primary Care Provider] - 1-2 days Time of Disposition: 21:36
[2024-06-30 19:40] LABS: Basophils % (A) 0 %; Eosinophils # (A) 0.1 k/uL (0-0.7); Eosinophils % (A) 1 %; HGB 12.3 gm/dL (11.4-16.0); Lymphocytes # (A) 1.2 k/uL (1.0-4.8); Lymphocytes % (A) 12 %; MCH 29.1 pg (25.0-35.0); MCHC 33.2 g/dL (31.0-37.0); MCV 87.9 fL (80.0-100.0); Monocytes # (A) 0.7 k/uL (0-1.0); Monocytes % (A) 7 %; Neutrophils # (A) 8.1 k/uL (1.3-7.7); Neutrophils % (A) 79 %; Platelet Count 264 k/uL (150-450); RBC 4.21 m/uL (3.80-5.40); RDW 12.5 % (11.5-15.5); WBC 10.3 k/uL (3.8-10.6)
[2024-06-30 19:48] LABS: Partial Thromboplastin Time 23.3 sec (22.0-30.0); Prothrombin Time 10.8 sec (10.0-12.5)
[2024-06-30 19:55] LABS: ALT 12 U/L (4-34); AST 30 U/L (14-36); African American GFR (CKD) >90 (>60 ml/min/1.73 sqM); Albumin 3.6 g/dL (3.5-5.0); Alkaline Phosphatase 105 U/L (38-126); Anion Gap 9 mmol/L; Blood Urea Nitrogen 36 mg/dL (7-17); Calcium 9.1 mg/dL (8.4-10.2); Carbon Dioxide 24 mmol/L (22-30); Chloride 106 mmol/L (98-107); Creatine Kinase 417 U/L (30-135); Glucose 99 mg/dL (74-99); Non-African American GFR(CKD) 82 (>60 ml/min/1.73 sqM); Potassium 3.4 mmol/L (3.5-5.1); Sodium 139 mmol/L (137-145); Total Bilirubin 0.9 mg/dL (0.2-1.3)
[2024-06-30] MEDS: SODIUM CHLORIDE 0.9% 1,000 ML IV ONE (20:29)
--- NOTE | 2024-06-30 20:40 | CT ---
EXAMINATION TYPE: CT brain wo con CT DLP: 1154.4 mGycm, Automated exposure control for dose reduction was used. DATE OF EXAM: 06/30/2024 8:03 PM COMPARISON: Brain MRI 01/24/2024. CLINICAL INDICATION:Female, 69 years old with history of Altered mental status, Dizziness TECHNIQUE: Brain: Axial CT images of the brain were obtained with coronal and sagittal reformats created and rev iewed. Contrast used: None. Oral contrast used: None. FINDINGS: Brain: Extra-axial spaces: No abnormal extra-axial fluid collections. Previously described extra-axial lesio n involving the posterior falx on MRI in reference is not fully visualized on today's noncontrasted h ead CT. Ventricular system: Within normal limits Cerebral parenchyma: No acute intraparenchymal hemorrhage or mass effect. The romo-white junction is well differentiated. Cerebellum: Unremarkable. Mass effect: No evidence of midline shift. Intracranial vasculature: Atherosclerotic calcifications of the intracranial vessels. Soft tissues: Normal. Calvarium/osseous structures: No depressed skull fracture. Paranasal sinuses and mastoid air cells: Mild scattered paranasal sinus disease. Visualized orbits: Orbital contents are intact. IMPRESSION: No acute intracranial process.
--- NOTE | 2024-06-30 21:08 | XR ---
EXAMINATION TYPE: XR chest 2V DATE OF EXAM: 06/30/2024 8:01 PM CLINICAL INDICATION:Female, 69 years old with history of altered mental status; [facility] COMPARISON: Chest radiograph 03/19/2024 TECHNIQUE: XR chest 2V Frontal view of the chest. FINDINGS: Lungs/Pleura: There is no evidence of pleural effusion, focal consolidation, or pneumothorax. Pulmonary vascularity: Unremarkable. Heart/mediastinum: Cardiomediastinal silhouette is unremarkable. Musculoskeletal: No acute osseous pathology. Other findings: None Lines/Tubes: [id number] projecting over the right hemithorax with distal tip at the cavoatrial junction. IMPRESSION: No acute cardiopulmonary disease/process.
[2024-06-30 21:13] LABS: Appearance,Urine Cloudy (Clear); Bacteria,Urine Rare /hpf; Bilirubin,Urine Negative (Negative); Blood,Urine Negative (Negative); Color,Urine Yellow; Glucose,Urine (UA) Negative (Negative); Ketones,Urine 3+ (Negative); Leukocyte Esterase,Urine Large (Negative); Nitrite,Urine Negative (Negative); PH, Urine 5.5 (5.0-8.0); Protein,Urine 1+ (Negative); RBC,Urine 11 /hpf (0-5); Specific Gravity,Urine 1.031 (1.001-1.035); Squamous Epithelial Cell,Urine 8 /hpf (0-4); WBC,Urine 41 /hpf (0-5)
[2024-06-30 21:18] LABS: Amphetamine Screen,Urine Not Detected (NotDetected); Barbiturate Screen,Urine Not Detected (NotDetected); Benzodiazepines Screen,Urine Not Detected (NotDetected); Cocaine Screen,Urine Not Detected (NotDetected); Methadone Screen, Urine Not Detected (NotDetected); Opiate Screen,Urine Not Detected (NotDetected); Oxycodone Screen, Urine Not Detected (NotDetected); Phencyclidine Screen,Urine Not Detected (NotDetected); Tricyclic Antidepressant,Urine Detected (NotDetected); Urn Cannabinoid Scrn Not Detected (NotDetected)
[2024-06-30] MEDS ORDERED: TEMAZEPAM 15 MG CAP PO PRN (21:37)
[2024-06-30] MEDS ORDERED: NALOXONE 0.4 MG/ML 1 ML VIAL IV PRN (21:37)
[2024-06-30] MEDS: SODIUM CHLORIDE 0.9% 1,000 ML IV SCH (22:31)
[2024-07-01] MEDS: SODIUM CHLORIDE 0.9% 1,000 ML IV SCH (00:50)
[2024-07-01 04:48] LABS: Basophils # (A) 0.1 k/uL (0-0.2); Basophils % (A) 1 %; Eosinophils # (A) 0.3 k/uL (0-0.7); Eosinophils % (A) 2 %; HCT 35.1 % (34.0-46.0); HGB 11.8 gm/dL (11.4-16.0); Lymphocytes # (A) 1.5 k/uL (1.0-4.8); Lymphocytes % (A) 13 %; MCH 29.6 pg (25.0-35.0); MCHC 33.7 g/dL (31.0-37.0); MCV 87.8 fL (80.0-100.0); Mean Platelet Volume 8.5; Monocytes # (A) 0.8 k/uL (0-1.0); Monocytes % (A) 7 %; Neutrophils # (A) 8.3 k/uL (1.3-7.7); Neutrophils % (A) 75 %; Platelet Count 268 k/uL (150-450); RBC 3.99 m/uL (3.80-5.40); RDW 12.7 % (11.5-15.5)
[2024-07-01 05:01] LABS: ALT 13 U/L (4-34); AST 39 U/L (14-36); African American GFR (CKD) >90 (>60 ml/min/1.73 sqM); Albumin 3.5 g/dL (3.5-5.0); Alkaline Phosphatase 113 U/L (38-126); Anion Gap 10 mmol/L; Blood Urea Nitrogen 35 mg/dL (7-17); Calcium 8.8 mg/dL (8.4-10.2); Carbon Dioxide 22 mmol/L (22-30); Chloride 106 mmol/L (98-107); Glucose 122 mg/dL (74-99); Non-African American GFR(CKD) 84 (>60 ml/min/1.73 sqM); Potassium 3.4 mmol/L (3.5-5.1); Sodium 138 mmol/L (137-145); Total Bilirubin 0.8 mg/dL (0.2-1.3); Total Protein 5.8 g/dL (6.3-8.2)
--- NOTE | 2024-07-01 08:46 | P.HPIM ---
History of Present Illness H&P Date: 06/30/24 HISTORY OF PRESENT ILLNESS: 69-year-old who started seen in our office recently as a new patient who is known to have history of invasive ductal cell carcinoma of the left breast postchemotherapy originally was diagnosed with it October 27, 2023 who is also known to have history of incidental meningioma, type 2 diabetes, GERD, hypothyroidism, chronic depression, GERD, chronic lower back pain and generalized arthritis to presented to the emergency department at [facility] when family found patient on on the ground has been hallucinating believing her family member are trying to hurt her, the patient apparently with severe dizziness not able to walk she slept on the floor which felt more comfortable than her on bed and was not able to get up and walk continue to have severe dizziness and worsening delusion and confusion. EMS brought her to the emergency department patient still quite bit confused and tried to rationalize the reason why her confusion ongoing which none of it make any sense. Workup shows CK of 417 with no real sign of rhabdomyolysis, CBC was normal potassium was mildly low troponin was negative UA was very positive for large leukocyte Estrace drug screen is positive for tricyclic antidepression which patient is on. Blood sugar was 99 with no sign of hypoglycemia. Brain CAT scan showed no acute intracranial process, chest x-ray shows no infiltrate. EKG showed sinus tachycardia with pulse around 110 bpm. 1 g of Rocephin was giving the patient be admitted to the hospital stabilize her encephalopathy from UTI reevaluated patient with her history of cancer MRI of the brain will be ordered patient be seen neurology also EEG will be done. REVIEW OF SYSTEMS: CONSTITUTIONAL: Overweight in no acute respiratory distress EYES: No icterus sclerae, no conjunctivitis. EARS, NOSE, MOUTH, THROAT, and FACE: No sore throat, lymphadenopathy, carotid bruits or deformity. RESPIRATORY: No SOB cough or wheezes. CARDIOVASCULAR: No CP, Palpitation, PND, Orthopnea, or angina. Mild tachycardia. GASTROINTESTINAL: No Abd pain, Nausea or vomiting, no Diarrhea or constipation, No GI Bleed, no distention or masses. GENITOURINARY: Negative for Hematuria or UTI, no kidney stones. INTEGUMENT/BREAST: Negative for any muscular injury with mild osteoarthritis.. HEMATOLOGIC/LYMPHATIC: Negative for bleed or purpura. History of invasive breast cancer. MUSCULOSKELTAL: Negative for Myalgia or arthralgia. NEURLOGICAL: Confusion with delusion no blurred vision generalized weakness. BEHAVIORAL/PSYCH: Negative. ENDOCRINE: Negative. PHYSICAL EXAMINATION: General Appearance: Alert mildly confused, cooperative, no distress, appears stated age. Neck HEENT: Supple, no lymphadenopathy, no thyroid enlargement, no carotid bruits. Lungs: Clear to auscultation without crackles or wheezes no rhonchi, no deformity. Chest Wall: Chest wall normal expansion with deep inspiration no tenderness and no deformity was found on exam, no costochondral pain or discomfort. Heart: Regular rate and rhythm, S1, S2 normal, no murmur, rub or gallop. Back: Symmetric, no curvature, ROM normal, no CVA tenderness. Abdomen: Soft, non-tender, bowel sounds active all four quadrants, no masses, no organomegaly. Extremities: Extremities normal, atraumatic, no cyanosis or edema. Pulses: 2+ and symmetric. Skin: Skin color, texture, tugor normal, no rashes or lesions. Neurologic: Alert mild confusion cranial nerves II through XII intact, no motor deficit, has been abnormal balance and gait with severe dizziness. ASSESSMENT AND PLAN: _Confusion delusion and altered mental status: Medical etiology of the left invasive ductal cell carcinoma, CAT scan of the brain did not show any abnormality will be found in the CT on with the elevated white cell with no sign of sepsis, will consult neurology, EEG and MRI of the brain to be done. _Severe metabolic encephalopathy: With acute urinary tract infection with no sign of sepsis Urine culture will be done continue active acute treatment for UTI hopefully her symptoms will improve. _Acute urinary tract infection: Will continue Rocephin for now and switch to oral medication in the next 48 hours. _ Invasive ductal cell carcinoma: Has been seen oncology regularly. _meningioma: no change in size. _ Hypothyroidism: Remain on levothyroxine 175 mcg daily. _ Type 2 diabetes: Continue Accu-Chek sliding scales coverage. _ Chronic pain syndrome: Has been on hydrocodone and Robaxin. _ Severe depression: On Effexor XR 75 mg at bedtime. _ Severe GERD: Still on pantoprazole. _ DVT prophylaxis will use Lovenox 40 mg subcutaneous daily. _ CODE STATUS: Full code. _ Admit patient to the inpatient service for more than 2 night stay. Past Medical History Past Medical History: Cancer, Diabetes Mellitus, GERD/Reflux, Hearing Disorder / Deafness, Thyroid Disorder Additional Past Medical History / Comment(s): Current left breast cancer. Diet Controlled Diabetes. Was to have PET Scan recently - cancelled due to high blood sugar of 331. Vertigo. Hx skin cancer in 2017. Hx left breast cancer in 1999. Migraines. Hemangioma, dizziness. Hard of hearing. "Mangeoma" History of Any Multi-Drug Resistant Organisms: None Reported Past Surgical History: Cholecystectomy, Hysterectomy, Tonsillectomy Additional Past Surgical History / Comment(s): Thyroidectomy for nodules, skin cancer removed, left breast lumpectomy(chemo and radiation). Past Anesthesia/Blood Transfusion Reactions: Motion Sickness, Postoperative Na usea & Vomiting (PONV) Additional Past Anesthesia/Blood Transfusion Reaction / Comment(s): Vertigo. Smoking Status: Never smoker - Past Family History Mother Family Medical History: Cancer Additional Family Medical History / Comment(s): Sarcoma. Father Family Medical History: Cancer Additional Family Medical History / Comment(s): Colon cancer. Medications and Allergies Home Medications Medication Instructions Recorded Confirmed Type Levothyroxine Sodium [Synthroid] 175 mcg PO HS 10/15/23 03/19/24 History Venlafaxine HCl ER [Effexor XR] 75 mg PO HS 10/15/23 03/19/24 History Acetaminophen [Tylenol Extra 500 - 1,000 mg PO Q4-6H PRN 11/25/23 03/19/24 His tory Strength] Naproxen Sodium [Aleve] 220 - 440 mg PO Q8H PRN 01/22/24 03/19/24 History Magnesium Oxide [Magox 400] 400 mg PO DAILY 03/19/24 03/19/24 History Ondansetron [Zofran] 4 - 8 mg PO Q4H PRN 03/19/24 03/19/24 History Sennosides [Senokot] 17.2 mg PO HS 03/19/24 03/19/24 History HYDROcodone/APAP 5-325MG [[place] 1 each PO Q4HR PRN #4 tab 03/24/24 Rx 5-325] Heparin Sodium,Porcine (1 ml) 5,000 unit SQ Q12HR each 03/24/24 Rx [Heparin Sodium] INSULIN ASPART (NovoLOG) [NovoLOG 0 unit SQ ACHS each 03/24/24 Rx (formulary)] Lactulose [Cephulac] 20 gm PO BID PRN #100 ml 03/24/24 Rx Nystatin 100,000 Unit/gm Powd 1 applic TOPICAL BID each 03/24/24 Rx [Mycostatin Powder] Pantoprazole [Protonix] 40 mg PO AC-BRKFST tab 03/24/24 Rx cefUROXime axetiL [Cefuroxime] 500 mg PO BID 3 Days #6 tab 03/24/24 Rx methocarbamoL [Robaxin] 500 mg PO TID PRN tab 03/24/24 Rx polyethylene glycoL 3350 [Miralax] 17 gm PO DAILY packet 03/24/24 Rx Allergies Allergy/AdvReac Type Severity Reaction Status Date / Time cephalexin monohydrate AdvReac Nausea & Verified 03/19/24 17:39 [From Keflex] Vomiting propoxyphene HCl AdvReac Nausea & Verified 03/19/24 17:39 [From Darvon] Vomiting Physical Exam Vitals: Vital Signs Temp Pulse Pulse Resp BP BP Pulse Ox 06/30/24 23:04 98.3 F 107 H 18 102/54 99 06/30/24 22:25 97.8 F 106 H 20 105/57 100 06/30/24 18:19 108 H 18 123/70 98 Intake and Output 06/30/24 06/30/24 07/01/24 14:59 22:59 06:59 Other: Weight 92.079 kg 92.079 kg Results CBC & Chem 7: 07/01/24 00:31 07/01/24 00:31 Labs: Abnormal Lab Results - Last 24 Hours (Table) 06/30/24 06/30/24 06/30/24 Range/Units 19:18 19:25 19:25 Neutrophils # 8.1 H (1.3-7.7) k/uL Potassium 3.4 L (3.5-5.1) mmol/L BUN 36 H (7-17) mg/dL Creatine Kinase 417 H (30-135) U/L Total Protein 6.0 L (6.3-8.2) g/dL Urine Appearance Cloudy H (Clear) Urine Protein 1+ H (Negative) Urine Ketones 3+ H (Negative) Ur Leukocyte Esterase Large H (Negative) Urine RBC 11 H (0-5) /hpf Urine WBC 41 H (0-5) /hpf Ur Squamous Epith Cells 8 H (0-4) /hpf Urine Bacteria Rare H (None) /hpf U Tricyclic Antidepress (NotDetected) 06/30/24 Range/Units 20:58 Neutrophils # (1.3-7.7) k/uL Potassium (3.5-5.1) mmol/L BUN (7-17) mg/dL Creatine Kinase (30-135) U/L Total Protein (6.3-8.2) g/dL Urine Appearance (Clear) Urine Protein (Negative) Urine Ketones (Negative) Ur Leukocyte Esterase (Negative) Urine RBC (0-5) /hpf Urine WBC (0-5) /hpf Ur Squamous Epith Cells (0-4) /hpf Urine Bacteria (None) /hpf U Tricyclic Antidepress Detected H (NotDetected)
[2024-07-01] MEDS ORDERED: QUEtiapine 25 MG TAB PO PRN (14:44)
--- NOTE | 2024-07-01 14:52 | P.CN ---
Psychiatric Consult - . Consult date: 07/01/24 Consult:: 07/01/24 13:41 IDENTIFYING DATA: This patient is a 69-year-old female, single, no kids, lives alone in an apartment, collect Social Security and pension REASON FOR REFERRAL: Psychiatry was consulted for "hallucinations" HISTORY OF PRESENT ILLNESS: The patient presented to the hospital initially on 06/30, was apparently found on the floor by her family. Apparently patient has been hallucinating and was believing that family members are there that are not really. Patient's urine drug screen is positive for TCA, she was admitted for altered mental status and urinary tract infection which was found in her urinalysis. Patient had a negative CT scan of her brain. Patient was seen today at the bedside, she was fairly pleasant attempting to cooperate. Claiming that back in March she was going through chemotherapy her last chemo dose was last March, states that she had "bone pain" afterwards and found it difficult to walk. Claims that she has been having falls at home. She states that she believed that her sisters were coming to help her at her home to move into a new apartment and believes that her sister was there when she actually was in. She also claims that she was concerned because she thought that she saw her sister "in the closet" at home and was talking to her. Claims that her mood is fair at this time, claims that her sleep has been poor, appetite has been on and off. Denies any paranoia at this time. She knew the correct date location and her name. At this time patient denies any suicidal or homical ideations, intent or plan. Patient denies any current auditory, visual hallucinations and denies any paranoia or delusions. Patients admits to using no recreational drugs or cigarettes PAST PSYCHIATRIC HISTORY: Patient has a a history of depression/anxiety. Patient is currently on Effexor 75 mg nightly. Patient denies any previous psychiatric hospitalizations. Patient denies any psychiatric outpatient follow- up. Patient denies any history of suicide attempts in the past. Claims that she does not have access to guns or weapons. PAST MEDICAL HISTORY: Past Medical History: Cancer, Diabetes Mellitus, GERD/Reflux, Hearing Disorder / Deafness, Thyroid Disorder Additional Past Medical History / Comment(s): Current left breast cancer. Diet Controlled Diabetes. Was to have PET Scan recently - cancelled due to high blood sugar of 331. Vertigo. Hx skin cancer in 2017. Hx left breast cancer in 2000. Migraines. Hemangioma, dizziness. Hard of hearing. "Mangeoma" History of Any Multi-Drug Resistant Organisms: None Reported Past Surgical History: Cholecystectomy, Hysterectomy, Tonsillectomy Additional Past Surgical History / Comment(s): Thyroidectomy for nodules, skin cancer removed, left breast lumpectomy(chemo and radiation). Past Anesthesia/Blood Transfusion Reactions: Motion Sickness, Postoperative Nausea & Vomiting (PONV) Additional Past Anesthesia/Blood Transfusion Reaction / Comment(s): Vertigo. Past Psychological History: No Psychological Hx Reported Smoking Status: Never smoker Past Alcohol Use History: None Reported Past Drug Use History: None Reported ALLERGIES: as per EMR. CHEMICAL DEPENDENCY HISTORY: as per HPI. FAMILY PSYCHIATRIC/SUBSTANCE USE HISTORY: Denies SOCIAL HISTORY: Patient was born and raised in [facility]. Claims that she completed high school and did some college. 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 States that she is single does not have kids, she lives alone in an apartment. MENTAL STATUS EXAM: General Appearance: Patient appears to be overweight, short hair, stated age is alert, pleasant, and cooperative. Patient appears to have fair hygiene and grooming wearing hospital gown with fair eye contact. Behavior: Patient is calmly lying in bed without any agitated behavior. Attempts to cooperate. Speech: Patient's speech is fluent and nonpressured. Hesitant at times Mood/Affect: Patient reports their mood is "fine", affect is congruent Suicidality/Homicidality: Patient denies having any suicidal or homicidal ideation intent or plan. Perceptions: Patient denies any current visual hallucinations and denies any auditory hallucinations Though content/process: There is no evidence of any delusional thought content and thought process is linear and goal-directed. Focused on her symptoms Memory and concentration: AOX3, grossly intact for the purposes of this session. Can spell "WORLD" backwards Judgment and insight: Improving IMPRESSIONS: Likely delirium secondary to urinary tract infection r/o parkinsons disease History of depressive disorder PLAN: -At this time patient DOES NOT meet criteria for inpatient psychiatric admission. -Delirium precautions recommended with patient including - avoiding use of narcotics and AIR TRAFFIC CONTROL MANAGER sedatives, limit anticholinergic medications when possible, frequent re-orientation, minimize use of restraints, open window shades during the day and close them at night -Would recommend the following medication changes/additions: Continue with treatment of underlying urinary tract infection as this was likely causing delirium/hallucinations. Can continue with Effexor 75 mg nightly for mood/anxiety. Patient is agreeable to try Seroquel 12.5 mg nightly for hallucinations/sleep/appetite, Seroquel 12.5 mg twice daily as needed for hallucinations/sleep -house worker general to provide patient with outpatient mental health/psychiatry resources for appropriate follow up upon discharge -Communicated plan to patient's nurse -Will continue to follow along only if requested otherwise will sign off. -Please contact with any questions. 07/01/24 14:45
--- NOTE | 2024-07-01 15:06 | MR ---
EXAMINATION TYPE: MR brain wo con DATE OF EXAM: 07/01/2024 3:00 PM COMPARISON: NONE HISTORY: AMS, HALLUCINATIONS FINDINGS: The ventricles, basal cisterns and sulci overlying the cerebral convexities are mildly enlarged. There is evidence of mild periventricular white matter ischemic demyelination. Remote deep white matter insults are also noted. No acute edema is seen on diffusion weighted imaging. There is no evidence for midline shift or mass effect. Acute intracranial hemorrhage or extra-axial collection is not evident. The paranasal sinuses and mastoid air cells are well-aerated. IMPRESSION: Age-related atrophic and chronic small vessel ischemic change. No acute intracranial process at this time.
--- NOTE | 2024-07-01 15:35 | P.CNNES ---
History of Present Illness Consult date: 07/01/24 Requesting physician: Dale Sanders Reason for Consult: ams, hallucination History of Present Illness: This is a 69-year-old woman with history of invasive ductal cell carcinoma of the left breast postchemotherapy, incidental meningioma, type 2 diabetes who presents to the emergency department because of confusion. Patient states she is unsure how she was on the ground. He thinks she slept on the ground because it was more comfortable. Thinks she went to the movie with a friend and she states that she never been to a movie theater before but does not recall if she did go to the movie or not. Per medical record it seems the patient family was found the patient on the ground she has been hallucinating believing her family members are trying to hurt her she was having also dizziness. Stated she had chemotherapy in March 23 and she has been having decree sensation in the legs since the chemotherapy. She denies any history of seizure. Denies of any headache any focal weakness. Some of the workup during this hospital visit consisted of: Patient is afebrile Initial white blood cell is 10.3 thousand. He level is 417. I reviewed the rest of the lab workup. Urine analysis is leukocyte esterase is large, urine white blood cells 41, urine bacteria is rare. CT of the head is reported as no acute intracranial process. I personally reviewed the CT and agree with the report. Review of Systems The positive and negative as per HPI. Past Medical History Past Medical History: Cancer, Diabetes Mellitus, GERD/Reflux, Hearing Disorder / Deafness, Thyroid Disorder Additional Past Medical History / Comment(s): Current left breast cancer. Diet Controlled Diabetes. Was to have PET Scan recently - cancelled due to high blood sugar of 331. Vertigo. Hx skin cancer in 2017. Hx left breast cancer in 2000. Migraines. Hemangioma, dizziness. Hard of hearing. "Mangeoma" History of Any Multi-Drug Resistant Organisms: None Reported Past Surgical History: Cholecystectomy, Hysterectomy, Tonsillectomy Additional Past Surgical History / Comment(s): Thyroidectomy for nodules, skin cancer removed, left breast lumpectomy(chemo and radiation). Past Anesthesia/Blood Transfusion Reactions: Motion Sickness, Postoperative Nausea & Vomiting (PONV) Additional Past Anesthesia/Blood Transfusion Reaction / Comment(s): Vertigo. Smoking Status: Never smoker - Past Family History Mother Family Medical History: Cancer Additional Family Medical History / Comment(s): Sarcoma. Father Family Medical History: Cancer Additional Family Medical History / Comment(s): Colon cancer. Medications and Allergies Home Medications Medication Instructions Recorded Confirmed Type Levothyroxine Sodium [Synthroid] 175 mcg PO HS 10/15/23 07/01/24 History Venlafaxine HCl ER [Effexor XR] 75 mg PO DAILY 10/15/23 07/01/24 History Naproxen Sodium [Aleve] 220 - 440 mg PO Q8H PRN 01/22/24 07/01/24 History Magnesium Oxide [Magox 400] 400 mg PO DAILY 03/19/24 07/01/24 History Sennosides [Senokot] 17.2 mg PO HS 03/19/24 07/01/24 History Nystatin 100,000 Unit/gm Powd 1 applic TOPICAL BID each 03/24/24 07/01/24 Rx [Mycostatin Powder] polyethylene glycoL 3350 [Miralax] 17 gm PO DAILY packet 03/24/24 07/01/24 Rx Gabapentin 300 mg PO HS 07/01/24 07/01/24 History Gabapentin [Neurontin] 100 mg PO BID PRN 07/01/24 07/01/24 History Ondansetron Odt [Zofran Odt] 4 mg PO Q8HR PRN 07/01/24 07/01/24 History hydroCHLOROthiazide [Hydrodiuril] 25 mg PO DAILY 07/01/24 07/01/24 History Allergies Allergy/AdvReac Type Severity Reaction Status Date / Time cephalexin monohydrate AdvReac Nausea & Verified 07/01/24 12:13 [From Keflex] Vomiting propoxyphene HCl AdvReac Nausea & Verified 07/01/24 12:13 [From Darvon] Vomiting Physical Examination - Vital Signs Vital Signs: Vital Signs Temp Pulse Pulse Resp BP BP Pulse Ox 07/01/24 12:24 98.1 F 103 H 15 102/67 98 07/01/24 08:00 109 H 16 07/01/24 07:11 98.4 F 109 H 16 97/52 95 07/01/24 01:30 97.7 F 101 H 16 90/56 94 L 06/30/24 23:18 97.9 F 105 H 18 123/62 99 06/30/24 23:04 98.3 F 107 H 18 102/54 99 06/30/24 22:25 97.8 F 106 H 20 105/57 100 06/30/24 18:19 108 H 18 123/70 98 Intake and Output 07/01/24 07/01/24 07/01/24 06:59 14:59 22:59 Intake Total 240 Balance 240 Intake: Oral 240 Other: # Voids 2 Weight 92.079 kg GENERAL: The patient is lying in bed and is not in acute distress. NEUROLOGICAL: Higher mental function: The patient is awake, alert, oriented to self, place and time. Patient is following commands. No aphasia and no neglect. Cranial nerves: The pupils are round, equal and reactive to light and accommodation. Visual coffman are full to confrontation throughout. Extraocular movement is intact no nystagmus is noted. Facial sensation is normal to touch throughout. The facial strength is normal throughout. Hearing is normal bilaterally to hand rub. Tongue is midline and moved [id number] without any difficulty. No dysarthria is noted. Shoulder shrug is normal bilaterally. Motor: Gait is two person assist and using a walker. she is taking small steps. The strength is 5 over 5 throughout uppers while lower is limited because of cooperation but had 4. Normal tone and bulk. Cerebellum: Normal finger to nose heel bilaterally. Sensation: Sensation is decreased to touch in the lowers. Reflexes (right/left): Uppers are 2+ while lowers is very limited since had edema. Plantars are mute bilaterally. Results - Laboratory Findings CBC and BMP: 07/01/24 00:31 07/01/24 00:31 Abnormal Lab Findings: Abnormal Labs 06/30/24 06/30/24 06/30/24 19:18 19:25 19:25 WBC Neutrophils # 8.1 H Potassium 3.4 L BUN 36 H Glucose AST Creatine Kinase 417 H Total Protein 6.0 L Urine Appearance Cloudy H Urine Protein 1+ H Urine Ketones 3+ H Ur Leukocyte Esterase Large H Urine RBC 11 H Urine WBC 41 H Ur Squamous Epith Cells 8 H Urine Bacteria Rare H U Tricyclic Antidepress 06/30/24 07/01/24 07/01/24 20:58 00:31 00:31 WBC 11.0 H Neutrophils # 8.3 H Potassium 3.4 L BUN 35 H Glucose 122 H AST 39 H Creatine Kinase Total Protein 5.8 L Urine Appearance Urine Protein Urine Ketones Ur Leukocyte Esterase Urine RBC Urine WBC Ur Squamous Epith Cells Urine Bacteria U Tricyclic Antidepress Detected H Assessment and Plan Assessment: This is a 69-year-old woman with history of left breast invasive ductal carcinoma postchemotherapy who had radiation therapy March 23, 2024 and since the therapy she has been having numbness of the lower extremity, incidental meningioma on MRIs, diabetes mellitus presented emergency department because of confusion. It seems that the patient was found by family members on the ground she is been hallucinating. Urinalysis seems probable acute urinary tract infection. Acute delirium likely due to underlying acute urinary tract infection Likely acute renal tract infection History of left breast invasive ductal carcinoma post chemotherapy Numbness in the lower extremity probable due to chemotherapy induced (noticed after treatment) Edema in the lower extremities Diabetes mellitus and her most recent hemoglobin A1c is 8.2 on 03/29/2024. Plan: MRI of the brain is ordered Routine EEG is ordered by the primary attending and is pending I ordered vitamin B12. Recommend EMG with nerve conduction study as an outpatient of the lower extremity Neurology is consulted Psychiatry is consulted Will defer the rest of the medical management to primary and other specialist The plan discussed with the patient and her nurse Thank you for the consultation Time with Patient: Greater than 30
--- NOTE | 2024-07-01 20:24 | EEG ---
ELECTROENCEPHALOGRAM REPORT CLINICAL HISTORY: This is a 69-year-old woman with altered mental status. The video EEG is obtained to evaluate for seizure epileptiform activity. RELEVANT MEDICATION: Gabapentin. EEG TYPE: This is a routine 21-channel EEG with video using the 10/20 electrode placement system. DESCRIPTION: Wakefulness and drowsiness are obtained. During awake state, the background consists of [id number] voltage of 7.5 to 8 hertz activity that is well modulated and well sustained. At times, the background consists of diffuse nonrhythmic, polymorphic delta activity. There is no physiological stage 2 sleep architecture. There is no focal slowing. Interictal and ictal is none. ACTIVATION PROCEDURE: Photic stimulation did not evoke a posterior driving response. There is no abnormality during the photic stimulation. Hyperventilation is not performed. CLINICAL INTERPRETATION: This is an abnormal routine EEG. The background slowing is suggestive of mild encephalopathy. Otherwise, there is no focal slowing, epileptiform discharge, or seizure on the EEG. Clinical correlation is recommended. MMLORENE / RAMYN: [id number] / MILTON
[2024-07-01] MEDS: NYSTATIN 100,000 UNIT/GM POWD 15 GM TOPICAL SCH (21:30)
[2024-07-01] MEDS: QUEtiapine 25 MG TAB PO SCH (21:30)
[2024-07-01] MEDS: VENLAFAXINE HCL 75 MG TAB PO SCH (21:30)
--- NOTE | 2024-07-01 22:34 | P.CONS ---
History of Present Illness - Reason for Consult Consult date: 07/01/24 Triple neg breast carcinoma Requesting physician: Bright Hopkins - Chief Complaint confusion - History of Present Illness Ms. Muprhy is a 68 year old female pt of Dr. Adithya Hernandes with a significant history of invasive ductal carcinoma of left breast. Had left breast Bx on 10/02 06/22 revealing triple negative invasive ductal carcinoma. Started on neoadjuvant keytruda/carbo/taxol. She was admitted in January for dizziness and falls. No pathology was found during that admission. She went on to complete cycle 4 day 1 on 03/12/24, missing day 8 on 03/19 she was hospitalized again for dizziness and falls. No pathology found. Patient ultimately ended up in [facility], being disc harged April 22. She has not been seen in the office since, she did not call back to reschedule. Patient is currently admitted from home for falls, hallucinations. She states that she sees and talks to people who are not there. She has not been able to ambulate without the help of an assistive device since her last treatment in March. She states that she woke up a few days after her last treatment and could not feel her legs. She had a CT of the head without contrast that was negative, an MRI of the brain without contrast that was negative. She denies fevers, chills, she is dizzy when she is changing positions. She has had ongoing falls. "3 good days since December", denies any acute GI complaints or respiratory complaints. She is going to be seen by Neurology. She is currently being treated for urinary tract infection. She reports that she lives alone, she is currently not driving. Review of Systems 14 point ROS is neg except as stated in HPI Past Medical History Past Medical History: Cancer, Diabetes Mellitus, GERD/Reflux, Hearing Disorder / Deafness, Thyroid Disorder Additional Past Medical History / Comment(s): Current left breast cancer. Diet Controlled Diabetes. Was to have PET Scan recently - cancelled due to high blood sugar of 331. Vertigo. Hx skin cancer in 2017. Hx left breast cancer in 1999. Migraines. Hemangioma, dizziness. Hard of hearing. "Mangeoma" History of Any Multi-Drug Resistant Organisms: None Reported Past Surgical History: Cholecystectomy, Hysterectomy, Tonsillectomy Additional Past Surgical History / Comment(s): Thyroidectomy for nodules, skin cancer removed, left breast lumpectomy(chemo and radiation). Past Anesthesia/Blood Transfusion Reactions: Motion Sickness, Postoperative Nausea & Vomiting (PONV) Additional Past Anesthesia/Blood Transfusion Reaction / Comm: Vertigo. Smoking Status: Never smoker - Past Family History Mother Family Medical History: Cancer Additional Family Medical History / Comment(s): Sarcoma. Father Family Medical History: Cancer Additional Family Medical History / Comment(s): Colon cancer. Medications and Allergies Home Medications Medication Instructions Recorded Confirmed Type Levothyroxine Sodium [Synthroid] 175 mcg PO HS 10/15/23 07/01/24 History Venlafaxine HCl ER [Effexor XR] 75 mg PO DAILY 10/15/23 07/01/24 History Naproxen Sodium [Aleve] 220 - 440 mg PO Q8H PRN 01/22/24 07/01/24 History Magnesium Oxide [Magox 400] 400 mg PO DAILY 03/19/24 07/01/24 History Sennosides [Senokot] 17.2 mg PO HS 03/19/24 07/01/24 History Nystatin 100,000 Unit/gm Powd 1 applic TOPICAL BID each 03/24/24 07/01/24 Rx [Mycostatin Powder] polyethylene glycoL 3350 [Miralax] 17 gm PO DAILY packet 03/24/24 07/01/24 Rx Gabapentin 300 mg PO HS 07/01/24 07/01/24 History Gabapentin [Neurontin] 100 mg PO BID PRN 07/01/24 07/01/24 History Ondansetron Odt [Zofran Odt] 4 mg PO Q8HR PRN 07/01/24 07/01/24 History hydroCHLOROthiazide [Hydrodiuril] 25 mg PO DAILY 07/01/24 07/01/24 History Allergies Allergy/AdvReac Type Severity Reaction Status Date / Time cephalexin monohydrate AdvReac Nausea & Verified 07/01/24 12:13 [From Keflex] Vomiting propoxyphene HCl AdvReac Nausea & Verified 07/01/24 12:13 [From Darvon] Vomiting Physical Exam Vitals: Vital Signs Temp Pulse Pulse Resp BP BP Pulse Ox 07/01/24 07:11 98.4 F 109 H 16 97/52 95 07/01/24 01:30 97.7 F 101 H 16 90/56 94 L 06/30/24 23:18 97.9 F 105 H 18 123/62 99 06/30/24 23:04 98.3 F 107 H 18 102/54 99 06/30/24 22:25 97.8 F 106 H 20 105/57 100 06/30/24 18:19 108 H 18 123/70 98 Intake and Output 06/30/24 07/01/24 07/01/24 22:59 06:59 14:59 Other: # Voids 2 Weight 92.079 kg 92.079 kg - Constitutional General appearance: average body habitus, cooperative, no acute distress - EENT Eyes: anicteric sclerae, EOMI ENT: hearing grossly normal, normal oropharynx - Neck Neck: lymphadenopathy (lt anterior axilla fullness, spongy) - Respiratory Respiratory: bilateral: CTA - Cardiovascular Rhythm: regular Heart sounds: normal: S1, S2 Abnormal Heart Sounds: no systolic murmur, no diastolic murmur, no rub, no S3 Gallop, no S4 Gallop, no click, no other leg Peripheral Edema: bilateral: 1+, Pitting - Gastrointestinal General gastrointestinal: normal bowel sounds, soft - Integumentary Integumentary: pale - Neurologic States no strength in BLE. Tactile sensation intact Neurologic: CNII-XII intact (grossly) - Psychiatric reports hallucinations at times, she sees family that is not even in this state and has full conversations Psychiatric: A&O x's 3, appropriate affect, intact judgment & insight Left breast lateral at 3 o'clock position approximately 6 cm area of firmness is palpated, central induration with scabbing, inverted nipple, not fixed to the chest wall. Anterior axilla area about 3 cm feels thickened, possibly lymph node Results CBC & Chem 7: 07/01/24 00:31 07/01/24 00:31 Labs: Abnormal Lab Results - Last 24 Hours (Table) 06/30/24 06/30/24 06/30/24 Range/Units 19:18 19:25 19:25 WBC (3.8-10.6) k/uL Neutrophils # 8.1 H (1.3-7.7) k/uL Potassium 3.4 L (3.5-5.1) mmol/L BUN 36 H (7-17) mg/dL Glucose (74-99) mg/dL AST (14-36) U/L Creatine Kinase 417 H (30-135) U/L Total Protein 6.0 L (6.3-8.2) g/dL Urine Appearance Cloudy H (Clear) Urine Protein 1+ H (Negative) Urine Ketones 3+ H (Negative) Ur Leukocyte Esterase Large H (Negative) Urine RBC 11 H (0-5) /hpf Urine WBC 41 H (0-5) /hpf Ur Squamous Epith Cells 8 H (0-4) /hpf Urine Bacteria Rare H (None) /hpf U Tricyclic Antidepress (NotDetected) 06/30/24 07/01/24 07/01/24 Range/Units 20:58 00:31 00:31 WBC 11.0 H (3.8-10.6) k/uL Neutrophils # 8.3 H (1.3-7.7) k/uL Potassium 3.4 L (3.5-5.1) mmol/L BUN 35 H (7-17) mg/dL Glucose 122 H (74-99) mg/dL AST 39 H (14-36) U/L Creatine Kinase (30-135) U/L Total Protein 5.8 L (6.3-8.2) g/dL Urine Appearance (Clear) Urine Protein (Negative) Urine Ketones (Negative) Ur Leukocyte Esterase (Negative) Urine RBC (0-5) /hpf Urine WBC (0-5) /hpf Ur Squamous Epith Cells (0-4) /hpf Urine Bacteria (None) /hpf U Tricyclic Antidepress Detected H (NotDetected) Chest x-ray: report reviewed CT Scan - head: report reviewed Assessment and Plan (1) Altered mental status Current Visit: Yes Status: Acute Code(s): R41.82 - ALTERED MENTAL STATUS, UNSPECIFIED SNOMED Code(s): 411224908 (2) Hallucinations Current Visit: Yes Status: Acute Priority: High Code(s): R44.3 - HEIDI LUCINATIONS, UNSPECIFIED SNOMED Code(s): 5323326 (3) UTI (urinary tract infection) Current Visit: Yes Status: Acute Code(s): N39.0 - URINARY TRACT INFECTION, SITE NOT SPECIFIED SNOMED Code(s): 52341076 (4) Breast cancer, left Current Visit: No Status: Acute Priority: Medium Code(s): C50.912 - MALIGNANT NEOPLASM OF UNSPECIFIED SITE OF LEFT FEMALE BREAST SNOMED Code(s): 710464514 (5) Triple negative malignant neoplasm of breast Current Visit: Yes Status: Acute Priority: High Code(s): C50.919 - MALIGNANT NEOPLASM OF UNSP SITE OF UNSPECIFIED FEMALE BREAST SNOMED Code(s): 371999486 Plan: Hallucinations, auditory and visual -Patient reporting that she is seeing and having conversations with people who a re not there. -Neurology has been consulted. Case was discussed with Neurology -Psychiatry has been consulted -CT of the brain without contrast and MRI of the brain without contrast are negative. Patient has no history of brain metastasis Bilateral lower extremity loss of strength -Patient does have intact tactile sensation on examination -She requires the use of an assistive device to get around, she states she cannot "feel" "her legs -Pending Neurology evaluation and recommendations. May consider MRI of the thoracic and lumbar spine Urinary tract infection -Patient is on antibiotics for the same -Patient denies any changes in hallucinations since starting antibiotics Triple negative breast cancer -Patient's last treatment was in March. She did not end up having surgery. She states that the breast is relatively unchanged. She is no longer having drainage from the area. -On breast examination the left breast has inverted nipple, the area at the 3 o'clock position is noted to be hard, not fixed to the chest wall, concern for possible lymph node in the anterior axilla on the left side -Tumor markers are ordered. -Patient was inquiring about resuming treatment or having surgery. Patient will need to follow-up in the clinic, will likely require restaging. Doctor attests: I performed a history and physical examination of this patient, developed impression and plan of care. Discussed with dictator. I agree with dictators note, documented as a scribe.
[2024-07-02] MEDS ORDERED: GABAPENTIN 100 MG CAP PO PRN (06:25)
[2024-07-02] MEDS ORDERED: ONDANSETRON ODT 4 MG TAB PO PRN (06:25)
[2024-07-02] MEDS: hydroCHLOROthiazide 25 MG TAB PO SCH (09:05)
[2024-07-02] MEDS: MAGNESIUM OXIDE 400 MG TAB PO SCH (09:05)
[2024-07-02] MEDS: polyethylene glycoL 3350 17 GM POWD.PACK PO SCH (09:05)
[2024-07-02] MEDS: VENLAFAXINE HCL ER 75 MG CAP PO SCH (09:06)
--- NOTE | 2024-07-02 11:17 | P.PN ---
Subjective Progress Note Date: 07/01/24 HISTORY OF PRESENT ILLNESS: 69-year-old who started seen in our office recently as a new patient who is known to have history of invasive ductal cell carcinoma of the left breast pos tchemotherapy originally was diagnosed with it October 27, 2023 who is also known to have history of incidental meningioma, type 2 diabetes, GERD, hypothyroidism, chronic depression, GERD, chronic lower back pain and generalized arthritis to presented to the emergency department at [facility] when family found patient on on the ground has been hallucinating believing her family member are trying to hurt her, the patient apparently with severe dizziness not able to walk she slept on the floor which felt more comfortable than her on bed and was not able to get up and walk continue to have severe dizziness and worsening delusion and confusion. EMS brought her to the emergency department patient still quite bit confused and tried to rationalize the reason why her confusion ongoing which none of it make any sense. Workup shows CK of 417 with no real sign of rhabdomyolysis, CBC was normal potassium was mildly low troponin was negative UA was very positive for large leukocyte Estrace drug screen is positive for tricyclic antidepression which patient is on. Blood sugar was 99 with no sign of hypoglycemia. Brain CAT scan showed no acute intracranial process, chest x-ray shows no infiltrate. EKG showed sinus tachycardia with pulse around 110 bpm. 1 g of Rocephin was giving the patient be admitted to the hospital stabilize her encephalopathy from UTI reevaluated patient with her history of cancer MRI of the brain will be ordered patient be seen neurology also EEG will be done. 07/01/2024: Patient still slightly confused but had active slightly but better than yesterday, again found to have UTI cultures pending at this point remain on Rocephin and seem to respond very well to it. Still have mild hypokalemia has been replacement therapy elevated blood sugar has been doing better. 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 Neurology agreed on current management to study her MRI and her EEG and agreed to do EMG as an outpatient for lower extremity weakness and to consider neurology recommendation. Patient does not have a lot of help at home she lives alone has a sister around who comes to see her every so often she has been managing her own affairs. When she is ready to leave the hospital probably there is a slight fear of loneliness and probably if patient does not act well at home by being more trouble so public health social worker to help to decide whether patient is a candidate for SNF for having to arrange for help or even talk to the family about staying with her for few days still things settle down. REVIEW OF SYSTEMS: CONSTITUTIONAL: Overweight in no acute respiratory distress EYES: No icterus sclerae, no conjunctivitis. EARS, NOSE, MOUTH, THROAT, and FACE: No sore throat, lymphadenopathy, carotid bruits or deformity. RESPIRATORY: No SOB cough or wheezes. CARDIOVASCULAR: No CP, Palpitation, PND, Orthopnea, or angina. Mild tachycardia. GASTROINTESTINAL: No Abd pain, Nausea or vomiting, no Diarrhea or constipation, No GI Bleed, no distention or masses. GENITOURINARY: Negative for Hematuria or UTI, no kidney stones. INTEGUMENT/BREAST: Negative for any muscular injury with mild osteoarthritis.. HEMATOLOGIC/LYMPHATIC: Negative for bleed or purpura. History of invasive breast cancer. MUSCULOSKELTAL: Negative for Myalgia or arthralgia. NEURLOGICAL: Confusion with delusion no blurred vision generalized weakness. BEHAVIORAL/PSYCH: Negative. ENDOCRINE: Negative. PHYSICAL EXAMINATION: General Appearance: Alert mildly confused, cooperative, no distress, appears stated age. Neck HEENT: Supple, no lymphadenopathy, no thyroid enlargement, no carotid bruits. Lungs: Clear to auscultation without crackles or wheezes no rhonchi, no deformity. Chest Wall: Chest wall normal expansion with deep inspiration no tenderness and no deformity was found on exam, no costochondral pain or discomfort. Heart: Regular rate and rhythm, S1, S2 normal, no murmur, rub or gallop. Back: Symmetric, no curvature, ROM normal, no CVA tenderness. Abdomen: Soft, non-tender, bowel sounds active all four quadrants, no masses, no organomegaly. Extremities: Extremities normal, atraumatic, no cyanosis or edema. Pulses: 2+ and symmetric. Skin: Skin color, texture, tugor normal, no rashes or lesions. Neurologic: Alert mild confusion cranial nerves II through XII intact, no motor deficit, has been abnormal balance and gait with severe dizziness. ASSESSMENT AND PLAN: _Confusion delusion and altered mental status: Medical etiology of the left invasive ductal cell carcinoma, CAT scan of the brain did not show any abnormality will be found in the CT on with the elevated white cell with no sign of sepsis, MRI of the brain and EEG both completed negative for any major abnormality at this point. _Severe metabolic encephalopathy: Urine culture still pending but seems to respond very well to Rocephin, no other metabolic abnormality with exception of electrolyte with hypokalemia and magnesium Maryanne which should not affect her mental status. _Acute urinary tract infection: Will continue Rocephin for now and switch to oral medication in the next 48 hours. Patient be switched to cefuroxime as an outpatient but waiting for the final culture. _ Invasive ductal cell carcinoma: Has been seen oncology regularly. No sign of brain metastasis. _ Hypothyroidism: Remain on levothyroxine 175 mcg daily. _ Type 2 diabetes: Continue Accu-Chek sliding scales coverage. _ Chronic pain syndrome: Has been on hydrocodone and Robaxin. _ Severe depression: On Effexor XR 75 mg at bedtime. _ Severe GERD: Still on pantoprazole. Discussion: Her confusion and delusion is slightly bit better, she is seen neurology and psych continue to follow the recommendation for now and continue to follow recommendation of oncology as well the patient is still need to be in the hospital probably for the next 48 hours. PT and OT and advance activity with help. Objective - Vital Signs Vital signs: Vital Signs Temp 97.7 F 07/01/24 01:30 Pulse 101 H 07/01/24 01:30 Resp 16 07/01/24 01:30 BP 90/56 07/01/24 01:30 Pulse Ox 94 L 07/01/24 01:30 FiO2 Intake & Output 06/30/24 06/30/24 07/01/24 06:59 18:59 06:59 Weight 92.079 kg 92.079 kg Other: # Voids 2 - Labs CBC & Chem 7: 07/01/24 00:31 07/01/24 00:31 Labs: Abnormal Lab Results - Last 24 Hours (Table) 06/30/24 06/30/24 06/30/24 Range/Units 19:18 19:25 19:25 WBC (3.8-10.6) k/uL Neutrophils # 8.1 H (1.3-7.7) k/uL Potassium 3.4 L (3.5-5.1) mmol/L BUN 36 H (7-17) mg/dL Glucose (74-99) mg/dL AST (14-36) U/L Creatine Kinase 417 H (30-135) U/L Total Protein 6.0 L (6.3-8.2) g/dL Urine Appearance Cloudy H (Clear) Urine Protein 1+ H (Negative) Urine Ketones 3+ H (Negative) Ur Leukocyte Esterase Large H (Negative) Urine RBC 11 H (0-5) /hpf Urine WBC 41 H (0-5) /hpf Ur Squamous Epith Cells 8 H (0-4) /hpf Urine Bacteria Rare H (None) /hpf U Tricyclic Antidepress (NotDetected) 06/30/24 07/01/24 07/01/24 Range/Units 20:58 00:31 00:31 WBC 11.0 H (3.8-10.6) k/uL Neutrophils # 8.3 H (1.3-7.7) k/uL Potassium 3.4 L (3.5-5.1) mmol/L BUN 35 H (7-17) mg/dL Glucose 122 H (74-99) mg/dL AST 39 H (14-36) U/L Creatine Kinase (30-135) U/L Total Protein 5.8 L (6.3-8.2) g/dL Urine Appearance (Clear) Urine Protein (Negative) Urine Ketones (Negative) Ur Leukocyte Esterase (Negative) Urine RBC (0-5) /hpf Urine WBC (0-5) /hpf Ur Squamous Epith Cells (0-4) /hpf Urine Bacteria (None) /hpf U Tricyclic Antidepress Detected H (NotDetected)
--- NOTE | 2024-07-02 11:20 | P.PN ---
Subjective Progress Note Date: 07/02/24 HISTORY OF PRESENT ILLNESS: 69-year-old who started seen in our office recently as a new patient who is known to have history of invasive ductal cell carcinoma of the left breast pos tchemotherapy originally was diagnosed with it October 27, 2023 who is also known to have history of incidental meningioma, type 2 diabetes, GERD, hypothyroidism, chronic depression, GERD, chronic lower back pain and generalized arthritis to presented to the emergency department at [facility] when family found patient on on the ground has been hallucinating believing her family member are trying to hurt her, the patient apparently with severe dizziness not able to walk she slept on the floor which felt more comfortable than her on bed and was not able to get up and walk continue to have severe dizziness and worsening delusion and confusion. EMS brought her to the emergency department patient still quite bit confused and tried to rationalize the reason why her confusion ongoing which none of it make any sense. Workup shows CK of 417 with no real sign of rhabdomyolysis, CBC was normal potassium was mildly low troponin was negative UA was very positive for large leukocyte Estrace drug screen is positive for tricyclic antidepression which patient is on. Blood sugar was 99 with no sign of hypoglycemia. Brain CAT scan showed no acute intracranial process, chest x-ray shows no infiltrate. EKG showed sinus tachycardia with pulse around 110 bpm. 1 g of Rocephin was giving the patient be admitted to the hospital stabilize her encephalopathy from UTI reevaluated patient with her history of cancer MRI of the brain will be ordered patient be seen neurology also EEG will be done. 07/01/2024: Patient still slightly confused but had active slightly but better than yesterday, again found to have UTI cultures pending at this point remain on Rocephin and seem to respond very well to it. Still have mild hypokalemia has been replacement therapy elevated blood sugar has been doing better. 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 Neurology agreed on current management to study her MRI and her EEG and agreed to do EMG as an outpatient for lower extremity weakness and to consider neurology recommendation. Patient does not have a lot of help at home she lives alone has a sister around who comes to see her every so often she has been managing her own affairs. When she is ready to leave the hospital probably there is a slight fear of loneliness and probably if patient does not act well at home by being more trouble so medical social worker to help to decide whether patient is a candidate for SNF for having to arrange for help or even talk to the family about staying with her for few days still things settle down. 07/02/2024: Patient is ambulating with a walker brushing her teeth when I seen her at the sink seems to do slightly better with her balance apparently had seen physical therapy still noticed slight confusion and delusion but improved s ignificantly compared to yesterday she is asking when she can go home promise if can manage to finalize everything by tomorrow specially if she is cleared from physical therapy standpoint hopefully she will be able to go home on oral antibiotics and home care. Apparently this is the third episode of UTI with intraoperative time and should help patient may be on schedule UA once a month and to do culture in between make sure she does not have any pyuria or any condition might be underlying causing problem with recurrent infection including if she has not had any pelvic exam recently should be done just in case and if it comes to conclusion there is no abnormality with Having urinary tract infection will talk about possibility of prophylaxis with something simple like Macrodantin or Keflex or cranberry. REVIEW OF SYSTEMS: CONSTITUTIONAL: Overweight in no acute respiratory distress EYES: No icterus sclerae, no conjunctivitis. EARS, NOSE, MOUTH, THROAT, and FACE: No sore throat, lymphadenopathy, carotid bruits or deformity. RESPIRATORY: No SOB cough or wheezes. CARDIOVASCULAR: No CP, Palpitation, PND, Orthopnea, or angina. Mild tachycardia. GASTROINTESTINAL: No Abd pain, Nausea or vomiting, no Diarrhea or constipation, No GI Bleed, no distention or masses. GENITOURINARY: Negative for Hematuria or UTI, no kidney stones. INTEGUMENT/BREAST: Negative for any muscular injury with mild osteoarthritis.. HEMATOLOGIC/LYMPHATIC: Negative for bleed or purpura. History of invasive breast cancer. MUSCULOSKELTAL: Negative for Myalgia or arthralgia. NEURLOGICAL: Confusion with delusion no blurred vision generalized weakness. BEHAVIORAL/PSYCH: Negative. ENDOCRINE: Negative. PHYSICAL EXAMINATION: General Appearance: Alert mildly confused, cooperative, no distress, appears stated age. Neck HEENT: Supple, no lymphadenopathy, no thyroid enlargement, no carotid bruits. Lungs: Clear to auscultation without crackles or wheezes no rhonchi, no deformity. Chest Wall: Chest wall normal expansion with deep inspiration no tenderness and no deformity was found on exam, no costochondral pain or discomfort. Heart: Regular rate and rhythm, S1, S2 normal, no murmur, rub or gallop. Back: Symmetric, no curvature, ROM normal, no CVA tenderness. Abdomen: Soft, non-tender, bowel sounds active all four quadrants, no masses, no organomegaly. Extremities: Extremities normal, atraumatic, no cyanosis or edema. Pulses: 2+ and symmetric. Skin: Skin color, texture, tugor normal, no rashes or lesions. Neurologic: Alert mild confusion cranial nerves II through XII intact, no motor deficit, has been abnormal balance and gait with severe dizziness. ASSESSMENT AND PLAN: _Confusion delusion and altered mental status: Much better and more clear currently and this is seems to be metabolic encephalopathy related to her UTI mostly no sign of metastasis or seizure activity her brain MRI and EEG are negative patient seen psych and neurology and she is cleared from both standpoint. _Severe metabolic encephalopathy: Urine culture still pending but seems to respond very well to Rocephin, no other metabolic abnormality with exception of electrolyte with hypokalemia and magnesium Maryanne which should not affect her mental status. _Acute urinary tract infection: Will continue Rocephin for now and switch to oral medication in the next 48 hours. Patient be switched to cefuroxime as an outpatient but waiting for the final culture. _ Invasive ductal cell carcinoma: Has been seen oncology regularly. No sign of brain metastasis. _ Hypothyroidism: Remain on levothyroxine 175 mcg daily. _ Type 2 diabetes: Continue Accu-Chek sliding scales coverage. _ Chronic pain syndrome: Has been on hydrocodone and Robaxin. _ Severe depression: On Effexor XR 75 mg at bedtime. _ Severe GERD: Still on pantoprazole. Discussion: Continue current management waiting for the final culture possibly discharge home tomorrow with the help of her sister and probably make an arrangement for home care and quick follow-up in the office early this week. Oncology has seen patient does not seem there is any cancer metastasis or any medical oncology reason for her confusion. Objective - Vital Signs Vital signs: Vital Signs Temp 98.6 F 07/02/24 07:18 Pulse 94 07/02/24 08:45 Resp 17 07/02/24 08:45 BP 116/73 07/02/24 07:18 Pulse Ox 94 L 07/02/24 07:18 FiO2 Intake & Output 07/01/24 07/02/24 07/02/24 18:59 06:59 18:59 Intake Total 1320 Balance 1320 Intake: Oral 1320 Other: Voiding Method Bedside Commode Bedside Commode Diaper Diaper # Voids 6 3 1 - Labs CBC & Chem 7: 07/01/24 00:31 07/01/24 00:31
[2024-07-02] MEDS: CYANOCOBALAMIN 500 MCG TAB PO SCH (11:51)
--- NOTE | 2024-07-02 13:31 | P.PN ---
Subjective Progress Note Date: 07/02/24 I am following-up with patient and she feels she is doing better today compared to yesterday. Denies any new neurological issues. Objective - Vital Signs Vital signs: Vital Signs Temp 98.4 F 07/02/24 12:10 Pulse 92 07/02/24 12:10 Resp 17 07/02/24 12:10 BP 102/63 07/02/24 12:10 Pulse Ox 98 07/02/24 12:10 FiO2 Intake & Output 07/01/24 07/02/24 07/02/24 18:59 06:59 18:59 Intake Total 1320 Balance 1320 Intake: Oral 1320 Other: Voiding Method Bedside Commode Bedside Commode Diaper Diaper # Voids 6 3 1 - Exam GENERAL: The patient is sitting up in her bed and is not in acute distress. NEUROLOGICAL: Higher mental function: The patient is awake, alert, oriented to self, place and time. Patient is following commands. No aphasia and no neglect. Cranial nerves: The pupils are round, equal and reactive to light and accommodation. Visual coffman are full to confrontation throughout. Extraocular movement is intact no nystagmus is noted. Facial sensation is normal to touch throughout. The facial strength is normal throughout. Hearing is normal bilaterally to hand rub. Tongue is midline and moved [id number] without any difficulty. No dysarthria is noted. Shoulder shrug is normal bilaterally. Motor: The strength is 5 over 5 throughout uppers while lower is limited because of cooperation but had 3 to 4- (limited because of pain and has edema). Cerebellum: Normal finger to nose heel bilaterally. Sensation: Sensation is decreased to touch in the lowers. Reflexes (right/left): Uppers are 2+ while lowers is very limited since had edema. Some of the workup during this hospital visit consisted of: Patient is afebrile Initial white blood cell is 10.3 thousand. CK level is 417. I reviewed the rest of the lab workup. Vitamin B12: 328 Urine analysis is leukocyte esterase is large, urine white blood cells 41, urine bacteria is rare. CT of the head is reported as no acute intracranial process. I personally reviewed the CT and agree with the report. MRI Brain: Reported as age-related atrophy and chronic small vessel ischemic change. No acute intracranial process seen at this time. I personally reviewed the MRI and there is no acute or subacute ischemic process. Routine EEG: Is abnormal. The background slowing is suggestive of mild encephalopathy. Otherwise there is no focal slowing, OptiForm discharge or seizure on the EEG - Labs CBC & Chem 7: 07/01/24 00:31 07/01/24 00:31 Labs: Microbiology - Last 24 Hours (Table) 07/01/24 00:31 Blood Culture - Preliminary Blood Assessment and Plan Assessment: This is a 69-year-old woman with history of left breast invasive ductal car cinoma postchemotherapy who had radiation therapy March 23, 2024 and since the therapy she has been having numbness of the lower extremity, incidental meningioma on MRIs, diabetes mellitus presented emergency department because of confusion. It seems that the patient was found by family members on the ground she is been hallucinating. Urinalysis seems probable acute urinary tract infection. Acute delirium likely due to underlying acute urinary tract infection---resolved Likely acute renal tract infection Low normal vitamin B12 of 328 History of left breast invasive ductal carcinoma post chemotherapy Numbness in the lower extremity probable due to chemotherapy induced (noticed after treatment) Edema in the lower extremities Diabetes mellitus and her most recent hemoglobin A1c is 8.2 on 03/29/2024. Plan: Recommend EMG with nerve conduction study as an outpatient of bilateral lower extremity Low normal vitamin B12 I started the patient on vitamin B12 1000 mcg daily Neurology is consulted Psychiatry is consulted Will defer the rest of the medical management to primary and other specialist Commend the patient to follow-up with a neurologist as an outpatient within 2 to 3 weeks. The plan discussed with the patient and her nurse. No further neurological workup. Will sign off. Please reconsult if needed. Time with Patient: Less than 30
[2024-07-02] MEDS: LEVOTHYROXINE 88 MCG TAB PO SCH (20:40)
[2024-07-02] MEDS: GABAPENTIN 300 MG CAP PO SCH (20:40)
[2024-07-02] MEDS: SENNOSIDES 8.6 MG TAB PO SCH (20:41)
[2024-07-03] MEDS: MELOXICAM 7.5 MG TAB PO SCH (21:25)
[2024-07-03] MEDS: BACLOFEN 10 MG TAB PO PRN (21:25)
[2024-07-04 13:01] LABS: Glucose,Whole Blood 131 mg/dL (70-110)
[2024-07-04 17:07] LABS: Glucose,Whole Blood 128 mg/dL (70-110)
--- NOTE | 2024-07-04 17:40 | P.PN ---
Subjective Progress Note Date: 07/03/24 HISTORY OF PRESENT ILLNESS: 69-year-old who started seen in our office recently as a new patient who is known to have history of invasive ductal cell carcinoma of the left breast pos tchemotherapy originally was diagnosed with it October 27, 2023 who is also known to have history of incidental meningioma, type 2 diabetes, GERD, hypothyroidism, chronic depression, GERD, chronic lower back pain and generalized arthritis to presented to the emergency department at [facility] when family found patient on on the ground has been hallucinating believing her family member are trying to hurt her, the patient apparently with severe dizziness not able to walk she slept on the floor which felt more comfortable than her on bed and was not able to get up and walk continue to have severe dizziness and worsening delusion and confusion. EMS brought her to the emergency department patient still quite bit confused and tried to rationalize the reason why her confusion ongoing which none of it make any sense. Workup shows CK of 417 with no real sign of rhabdomyolysis, CBC was normal potassium was mildly low troponin was negative UA was very positive for large leukocyte Estrace drug screen is positive for tricyclic antidepression which patient is on. Blood sugar was 99 with no sign of hypoglycemia. Brain CAT scan showed no acute intracranial process, chest x-ray shows no infiltrate. EKG showed sinus tachycardia with pulse around 110 bpm. 1 g of Rocephin was giving the patient be admitted to the hospital stabilize her encephalopathy from UTI reevaluated patient with her history of cancer MRI of the brain will be ordered patient be seen neurology also EEG will be done. 07/01/2024: Patient still slightly confused but had active slightly but better than yesterday, again found to have UTI cultures pending at this point remain on Rocephin and seem to respond very well to it. Still have mild hypokalemia has been replacement therapy elevated blood sugar has been doing better. 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 Neurology agreed on current management to study her MRI and her EEG and agreed to do EMG as an outpatient for lower extremity weakness and to consider neurology recommendation. Patient does not have a lot of help at home she lives alone has a sister around who comes to see her every so often she has been managing her own affairs. When she is ready to leave the hospital probably there is a slight fear of loneliness and probably if patient does not act well at home by being more trouble so social service worker to help to decide whether patient is a candidate for SNF for having to arrange for help or even talk to the family about staying with her for few days still things settle down. 07/02/2024: Patient is ambulating with a walker brushing her teeth when I seen her at the sink seems to do slightly better with her balance apparently had seen physical therapy still noticed slight confusion and delusion but improved s ignificantly compared to yesterday she is asking when she can go home promise if can manage to finalize everything by tomorrow specially if she is cleared from physical therapy standpoint hopefully she will be able to go home on oral antibiotics and home care. Apparently this is the third episode of UTI with intraoperative time and should help patient may be on schedule UA once a month and to do culture in between make sure she does not have any pyuria or any condition might be underlying causing problem with recurrent infection including if she has not had any pelvic exam recently should be done just in case and if it comes to conclusion there is no abnormality with Having urinary tract infection will talk about possibility of prophylaxis with something simple like Macrodantin or Keflex or cranberry. 07/03/2024: Patient continued to have slight confusion without any further manuel lucination. Respond to her treatment management very well so far white blood cells down to 11,000 potassium still slightly below replacement therapy. Her ability to ambulate and walk not safe to do it on her own and her sister who cannot take time off to stay with her the whole time does not feel patient be safe to go home so as of now we will continue to do physical therapy and Occupational Therapy and helping to have patient agreed to go to rehab for short bit of time till she is back independent. REVIEW OF SYSTEMS: CONSTITUTIONAL: Overweight in no acute respiratory distress EYES: No icterus sclerae, no conjunctivitis. EARS, NOSE, MOUTH, THROAT, and FACE: No sore throat, lymphadenopathy, carotid bruits or deformity. RESPIRATORY: No SOB cough or wheezes. CARDIOVASCULAR: No CP, Palpitation, PND, Orthopnea, or angina. Mild tachycardia. GASTROINTESTINAL: No Abd pain, Nausea or vomiting, no Diarrhea or constipation, No GI Bleed, no distention or masses. GENITOURINARY: Negative for Hematuria or UTI, no kidney stones. INTEGUMENT/BREAST: Negative for any muscular injury with mild osteoarthritis.. HEMATOLOGIC/LYMPHATIC: Negative for bleed or purpura. History of invasive breast cancer. MUSCULOSKELTAL: Negative for Myalgia or arthralgia. NEURLOGICAL: Confusion with delusion no blurred vision generalized weakness. BEHAVIORAL/PSYCH: Negative. ENDOCRINE: Negative. PHYSICAL EXAMINATION: General Appearance: Alert mildly confused, cooperative, no distress, appears stated age. Neck HEENT: Supple, no lymphadenopathy, no thyroid enlargement, no carotid bruits. Lungs: Clear to auscultation without crackles or wheezes no rhonchi, no deformity. Chest Wall: Chest wall normal expansion with deep inspiration no tenderness and no deformity was found on exam, no costochondral pain or discomfort. Heart: Regular rate and rhythm, S1, S2 normal, no murmur, rub or gallop. Back: Symmetric, no curvature, ROM normal, no CVA tenderness. Abdomen: Soft, non-tender, bowel sounds active all four quadrants, no masses, no organomegaly. Extremities: Extremities normal, atraumatic, no cyanosis or edema. Pulses: 2+ and symmetric. Skin: Skin color, texture, tugor normal, no rashes or lesions. Neurologic: Alert mild confusion cranial nerves II through XII intact, no motor deficit, has been abnormal balance and gait with severe dizziness. ASSESSMENT AND PLAN: _Confusion delusion and altered mental status: Much better so far and this is probably is related to her urinary tract infection with no sign of metastasis her MRI of the brain came back negative and EEG did not show any sign of seizure activity. Patient was evaluated by psych and neurology and agree with the current management it is more medical management to treat her UTI hopefully to improve her mentation confusion and delusion. _Severe metabolic encephalopathy: Still on Rocephin urine culture is not finalized apparently emergency room never send urine for culture after finding of positive did not do any reflex culture anymore at this point we will continue assumption of treatment is effective with Rocephin and replace it with Ceftin as an outpatient. _Acute urinary tract infection: Will continue Rocephin for now and switch to oral medication in the next 48 hours. Patient be switched to cefuroxime as an outpatient but waiting for the final culture. _ Invasive ductal cell carcinoma: With history of bilateral breast cancer has been seen oncology regularly. No sign of brain metastasis. _ Hypothyroidism: Remain on levothyroxine 175 mcg daily. _ Type 2 diabetes: Continue Accu-Chek sliding scales coverage. _ Chronic pain syndrome: Has been on hydrocodone and Robaxin. _ Severe depression: On Effexor XR 75 mg at bedtime. _ Severe GERD: Still on pantoprazole. Discussion: His sister who is the guardian left me a message calling her back seemed that she does not have any time to take time off to help her sister when she is discharged from the hospital and asking to do physical therapy and Occupational Therapy and consider any help for her sister. She is independent to be able to go home on her own. Objective - Vital Signs Vital signs: Vital Signs Temp 98 F 07/03/24 07:45 Pulse 86 07/03/24 07:45 Resp 17 07/03/24 07:45 BP 124/70 07/03/24 07:45 Pulse Ox 97 07/03/24 07:45 FiO2 Intake & Output 07/02/24 07/03/24 07/03/24 18:59 06:59 18:59 Intake Total 1020 Balance 1020 Intake: Oral 1020 Other: Voiding Method Bedside Commode Diaper # Voids 1 3 - Labs CBC & Chem 7: 07/01/24 00:31 07/01/24 00:31 Labs: Microbiology - Last 24 Hours (Table) 07/01/24 00:31 Blood Culture - Preliminary Blood
--- NOTE | 2024-07-04 17:44 | P.PN ---
Subjective Progress Note Date: 07/04/24 HISTORY OF PRESENT ILLNESS: 69-year-old who started seen in our office recently as a new patient who is known to have history of invasive ductal cell carcinoma of the left breast pos tchemotherapy originally was diagnosed with it October 27, 2023 who is also known to have history of incidental meningioma, type 2 diabetes, GERD, hypothyroidism, chronic depression, GERD, chronic lower back pain and generalized arthritis to presented to the emergency department at [facility] when family found patient on on the ground has been hallucinating believing her family member are trying to hurt her, the patient apparently with severe dizziness not able to walk she slept on the floor which felt more comfortable than her on bed and was not able to get up and walk continue to have severe dizziness and worsening delusion and confusion. EMS brought her to the emergency department patient still quite bit confused and tried to rationalize the reason why her confusion ongoing which none of it make any sense. Workup shows CK of 417 with no real sign of rhabdomyolysis, CBC was normal potassium was mildly low troponin was negative UA was very positive for large leukocyte Estrace drug screen is positive for tricyclic antidepression which patient is on. Blood sugar was 99 with no sign of hypoglycemia. Brain CAT scan showed no acute intracranial process, chest x-ray shows no infiltrate. EKG showed sinus tachycardia with pulse around 110 bpm. 1 g of Rocephin was giving the patient be admitted to the hospital stabilize her encephalopathy from UTI reevaluated patient with her history of cancer MRI of the brain will be ordered patient be seen neurology also EEG will be done. 07/01/2024: Patient still slightly confused but had active slightly but better than yesterday, again found to have UTI cultures pending at this point remain on Rocephin and seem to respond very well to it. Still have mild hypokalemia has been replacement therapy elevated blood sugar has been doing better. 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 Neurology agreed on current management to study her MRI and her EEG and agreed to do EMG as an outpatient for lower extremity weakness and to consider neurology recommendation. Patient does not have a lot of help at home she lives alone has a sister around who comes to see her every so often she has been managing her own affairs. When she is ready to leave the hospital probably there is a slight fear of loneliness and probably if patient does not act well at home by being more trouble so social sciences department chair to help to decide whether patient is a candidate for SNF for having to arrange for help or even talk to the family about staying with her for few days still things settle down. 07/02/2024: Patient is ambulating with a walker brushing her teeth when I seen her at the sink seems to do slightly better with her balance apparently had seen physical therapy still noticed slight confusion and delusion but improved s ignificantly compared to yesterday she is asking when she can go home promise if can manage to finalize everything by tomorrow specially if she is cleared from physical therapy standpoint hopefully she will be able to go home on oral antibiotics and home care. Apparently this is the third episode of UTI with intraoperative time and should help patient may be on schedule UA once a month and to do culture in between make sure she does not have any pyuria or any condition might be underlying causing problem with recurrent infection including if she has not had any pelvic exam recently should be done just in case and if it comes to conclusion there is no abnormality with Having urinary tract infection will talk about possibility of prophylaxis with something simple like Macrodantin or Keflex or cranberry. 07/03/2024: Patient continued to have slight confusion without any further manuel lucination. Respond to her treatment management very well so far white blood cells down to 11,000 potassium still slightly below replacement therapy. Her ability to ambulate and walk not safe to do it on her own and her sister who cannot take time off to stay with her the whole time does not feel patient be safe to go home so as of now we will continue to do physical therapy and Occupational Therapy and helping to have patient agreed to go to rehab for short bit of time till she is back independent. 07/04/2024 she complained of bilateral hip pain through the night had to use Celebrex 200 mg daily which seems to help some. Patient woke up this morning with rash all over her body specially the upper extremity and part of the lower extremity she had originally allergy to cephalexin and has been on Rocephin since her admission which probably this is reaction to it. She was taking off medication and started on Cipro sadly there is no positive urine culture for UTI at this point mostly her urine was not sent as a reflex urine culture but blood culture came back negative. Her mobility and ability to ambulate with slight help has been much better so far continue physical therapy and still waiting for PT and OT to decide whether patient need some more assistance required SNF or not. REVIEW OF SYSTEMS: CONSTITUTIONAL: Overweight in no acute respiratory distress EYES: No icterus sclerae, no conjunctivitis. EARS, NOSE, MOUTH, THROAT, and FACE: No sore throat, lymphadenopathy, carotid bruits or deformity. RESPIRATORY: No SOB cough or wheezes. CARDIOVASCULAR: No CP, Palpitation, PND, Orthopnea, or angina. Mild tachycardia. GASTROINTESTINAL: No Abd pain, Nausea or vomiting, no Diarrhea or constipation, No GI Bleed, no distention or masses. GENITOURINARY: Negative for Hematuria or UTI, no kidney stones. INTEGUMENT/BREAST: Negative for any muscular injury with mild osteoarthritis.. HEMATOLOGIC/LYMPHATIC: Negative for bleed or purpura. History of invasive breast cancer. MUSCULOSKELTAL: Negative for Myalgia or arthralgia. NEURLOGICAL: Confusion with delusion no blurred vision generalized weakness. BEHAVIORAL/PSYCH: Negative. ENDOCRINE: Negative. PHYSICAL EXAMINATION: General Appearance: Alert mildly confused, cooperative, no distress, appears stated age. Neck HEENT: Supple, no lymphadenopathy, no thyroid enlargement, no carotid bruits. Lungs: Clear to auscultation without crackles or wheezes no rhonchi, no deformity. Chest Wall: Chest wall normal expansion with deep inspiration no tenderness and no deformity was found on exam, no costochondral pain or discomfort. Heart: Regular rate and rhythm, S1, S2 normal, no murmur, rub or gallop. Back: Symmetric, no curvature, ROM normal, no CVA tenderness. Abdomen: Soft, non-tender, bowel sounds active all four quadrants, no masses, no organomegaly. Extremities: Extremities normal, atraumatic, no cyanosis or edema. Pulses: 2+ and symmetric. Skin: Skin color, texture, tugor normal, no rashes or lesions. Neurologic: Alert mild confusion cranial nerves II through XII intact, no motor deficit, has been abnormal balance and gait with severe dizziness. ASSESSMENT AND PLAN: _Confusion delusion and altered mental status: Much better so far and this is probably is related to her urinary tract infection with no sign of metastasis her MRI of the brain came back negative and EEG did not show any sign of seizure activity. Patient was evaluated by psych and neurology and agree with the current management it is more medical management to treat her UTI hopefully to improve her mentation confusion and delusion. Drug rash: Most likely from Rocephin as a reaction DC Rocephin and start patient on ciprofloxacin as placed. _Severe metabolic encephalopathy: Still on Rocephin urine culture is not finalized apparently emergency room never send urine for culture after finding of positive did not do any reflex culture anymore at this point we will continue assumption of treatment is effective with Rocephin to the reaction she had to today switch patient to Cipro will send her home on Cipro when she is ready. _Acute urinary tract infection: Because of the reaction to antibiotics patient was switched to Cipro 250 mg twice a day will be on oral medication. _Debility: Has been having more trouble with balance and gait require more help and assistance still walking with a walker with one-person catering assistant, patient wi ll be doing more PT OT family do not feel she is safe to go home by herself plan as of now for possibly [facility] rehab. _ Invasive ductal cell carcinoma: With history of bilateral breast cancer has been seen oncology regularly. No sign of brain metastasis. _ Hypothyroidism: Remain on levothyroxine 175 mcg daily. _ Type 2 diabetes: Continue Accu-Chek sliding scales coverage. _ Chronic pain syndrome: Has been on hydrocodone and Robaxin. _ Severe depression: On Effexor XR 75 mg at bedtime. _ Severe GERD: Still on pantoprazole. Discussion: With severe discomfort and arthritis of both hip had improved somewhat on Celebrex, also had reaction to Rocephin for drug rash was switched to ciprofloxacin and seems to do slightly bit better with it. Objective - Vital Signs Vital signs: Vital Signs Temp 97.9 F 07/04/24 13:31 Pulse 81 07/04/24 13:31 Resp 17 07/04/24 13:31 BP 111/67 07/04/24 13:31 Pulse Ox 97 07/04/24 13:31 FiO2 Intake & Output 07/03/24 07/04/24 07/04/24 18:59 06:59 18:59 Intake Total 940 540 Balance 940 540 Intake: Oral 940 540 Other: Voiding Method Bedside Commode Bedside Commode Bedside Commode Diaper Diaper Diaper # Voids 2 1 2 - Labs CBC & Chem 7: 07/01/24 00:31 07/01/24 00:31 Labs: Abnormal Lab Results - Last 24 Hours (Table) 07/04/24 07/04/24 Range/Units 12:59 17:03 POC Glucose (mg/dL) 131 H 128 H (70-110) mg/dL Microbiology - Last 24 Hours (Table) 07/01/24 00:31 Blood Culture - Preliminary Blood
[2024-07-04 20:05] LABS: Glucose,Whole Blood 139 mg/dL (70-110)
[2024-07-04] MEDS: CIPROFLOXACIN HCL 250 MG TAB PO SCH (21:26)
[2024-07-05 07:16] LABS: Glucose,Whole Blood 106 mg/dL (70-110)
[2024-07-05 07:34] VITALS: BP 119/74; PULSE 84; RESP 15; TEMP 97.9
[2024-07-05 12:05] LABS: Glucose,Whole Blood 158 mg/dL (70-110)
[2024-07-05 17:05] LABS: Glucose,Whole Blood 177 mg/dL (70-110)
[2024-07-05 20:05] LABS: Glucose,Whole Blood 229 mg/dL (70-110)
[2024-07-06 07:14] LABS: Glucose,Whole Blood 146 mg/dL (70-110)
[2024-07-06 11:57] LABS: Glucose,Whole Blood 159 mg/dL (70-110)
== END 2024-07-06 12:54 | disposition home or self-care (01) | DRG 689 ==
LOC: EC 18:11 → 5NMEDONC 21:39 → OBSVTOIN 07-01 13:40
PROVIDERS: ADMIT Internal Medicine Geriatric Medicine; ATTEND Internal Medicine Geriatric Medicine
DX: N10 Acute pyelonephritis (principal); G93.41 Metabolic encephalopathy; F05 Delirium due to known physiological condition; L25.8 Unspecified contact dermatitis due to other agents; T36.1X5A Adverse effect of cephalosporins and other beta-lactam antibiotics, initial encounter; G89.4 Chronic pain syndrome; E11.9 Type 2 diabetes mellitus without complications; K21.9 Gastro-esophageal reflux disease without esophagitis; G43.909 Migraine, unspecified, not intractable, without status migrainosus; R20.0 Anesthesia of skin; T45.1X5A Adverse effect of antineoplastic and immunosuppressive drugs, initial encounter; H91.90 Unspecified hearing loss, unspecified ear; Z60.2 Problems related to living alone; F41.9 Anxiety disorder, unspecified; F32.A Depression, unspecified; E89.0 Postprocedural hypothyroidism; E87.6 Hypokalemia; Z92.3 Personal history of irradiation; Z91.81 History of falling; Z28.21 Immunization not carried out because of patient refusal; Z28.310 Unvaccinated for COVID-19; Z17.1 Estrogen receptor negative status [ER-]; Z79.1 Long term (current) use of non-steroidal anti-inflammatories (NSAID); Z79.4 Long term (current) use of insulin; Z79.890 Hormone replacement therapy; Z79.899 Other long term (current) drug therapy; Z85.828 Personal history of other malignant neoplasm of skin; Z86.011 Personal history of benign neoplasm of the brain; Z88.1 Allergy status to other antibiotic agents; Z92.21 Personal history of antineoplastic chemotherapy
CPT/HCPCS: 36415; 70450; 70551; 71046; 80053; 80306; 81001; 82550; 82607; 83605; 84484; 85025; 85610; 85730; 86300; 87040; 93005; 95816; 96360; 99285

== ENCOUNTER 2024-11-08 08:30 | Day surgery (SDC) | payer MEDICARE, BC ==
[2024-11-08] MEDS: IV FLUID CONTINUATION 1,000 ML IV ONE (09:10)
[2024-11-08 09:22] LABS: Glucose,Whole Blood 167 mg/dL (70-110)
[2024-11-08] MEDS: ALPRAZolam 0.25 MG TAB PO STA (09:26)
[2024-11-08] MEDS: ACETAMINOPHEN TAB 500 MG TAB PO PRN (09:27)
[2024-11-08] MEDS: LACTATED RINGERS 1,000 ML IV SCH ×2 (09:29→17:13)
[2024-11-08 09:33] LABS: Basophils % (A) 0 %; Eosinophils # (A) 0.4 k/uL (0-0.7); Eosinophils % (A) 4 %; HCT 42.2 % (34.0-46.0); HGB 14.2 gm/dL (11.4-16.0); Lymphocytes # (A) 1.6 k/uL (1.0-4.8); Lymphocytes % (A) 18 %; MCH 28.3 pg (25.0-35.0); MCHC 33.7 g/dL (31.0-37.0); MCV 83.9 fL (80.0-100.0); Mean Platelet Volume 6.7; Monocytes # (A) 0.5 k/uL (0-1.0); Monocytes % (A) 6 %; Neutrophils # (A) 6.3 k/uL (1.3-7.7); Neutrophils % (A) 71 %; Platelet Count 245 k/uL (150-450); RBC 5.03 m/uL (3.80-5.40); RDW 13.2 % (11.5-15.5)
[2024-11-08] MEDS: ONDANSETRON 4 MG/2 ML VIAL IVP ONE (10:00)
[2024-11-08] MEDS: HEPARIN SODIUM,PORCINE 5,000 UNIT/ML 1 ML VIAL SQ PRN (10:01)
[2024-11-08] MEDS: DEXAMETHASONE SOD PHOSPHATE 4 MG/ML 1 ML VIAL IV ONE (10:01)
[2024-11-08 10:40] LABS: ALT 7 U/L (4-34); AST 17 U/L (14-36); African American GFR (CKD) 76 (>60 ml/min/1.73 sqM); Albumin 3.7 g/dL (3.5-5.0); Alkaline Phosphatase 125 U/L (38-126); Anion Gap 5 mmol/L; Blood Urea Nitrogen 16 mg/dL (7-17); Calcium 8.7 mg/dL (8.4-10.2); Carbon Dioxide 30 mmol/L (22-30); Chloride 104 mmol/L (98-107); Glucose 175 mg/dL (74-99); Non-African American GFR(CKD) 66 (>60 ml/min/1.73 sqM); Potassium 4.6 mmol/L (3.5-5.1); Sodium 139 mmol/L (137-145); Total Bilirubin 0.7 mg/dL (0.2-1.3); Total Protein 6.2 g/dL (6.3-8.2)
[2024-11-08] MEDS ORDERED: KETOROLAC 15 MG/ML 1 ML VIAL ONE (10:43)
[2024-11-08] MEDS ORDERED: PROPOFOL 10 MG/ML 20 ML VIAL IV ONE (10:43)
[2024-11-08] MEDS ORDERED: diphenhydrAMINE 50 MG/ML 1 ML VIAL ONE (10:43)
[2024-11-08] MEDS ORDERED: PHENYLEPHRINE-0.9% NACL SYG 1,000 MCG/10 ML SYRINGE ONE (10:43)
[2024-11-08] MEDS ORDERED: HYDROmorphone (PF) 1 MG/ML ONE (10:43)
[2024-11-08] MEDS ORDERED: SUCCINYLCHOLINE CHLORIDE 200 MG/10 ML VIAL IV ONE (10:43)
[2024-11-08] MEDS ORDERED: fentaNYL (PF) 50 MCG/ML 2 ML AMP ONE (10:43)
[2024-11-08] MEDS ORDERED: LIDOCAINE 1% INJ 10MG/ML (20 ML MDV) ONE (10:43)
--- NOTE | 2024-11-08 11:19 | NM ---
EXAMINATION TYPE: NM sentinel node injection DATE OF EXAM: 11/08/2024 COMPARISON: NONE INDICATION: Abnormal mammogram. Informed consent was obtained. A timeout was performed. The area around the left nipple was cleansed with alcohol. In a single dose, a total of 523.0 uCi T echnetium 99m Tilmanocept was injected approximately 12:00 position. The patient tolerated the proce dure very well. IMPRESSION: 1. Successful injection for sentinel node evaluation. [facility], , 11/08/2024 11:16 AM
[2024-11-08] MEDS: METHYLENE BLUE 50 MG/10 ML AMPUL INJ ONE (11:44)
[2024-11-08] MEDS: LACTATED RINGERS 1,000 ML IV ONE (12:14)
[2024-11-08] MEDS ORDERED: NALOXONE 0.4 MG/ML 1 ML VIAL IV PRN (12:52)
[2024-11-08] MEDS ORDERED: ACETAMINOPHEN TAB 325 MG TAB PO PRN (12:52)
[2024-11-08] MEDS ORDERED: METOCLOPRAMIDE 5 MG/ML 2 ML VIAL IVP PRN (12:52)
[2024-11-08] MEDS ORDERED: HYDROmorphone 1 MG/ML 1 ML SYRINGE IVP PRN (12:52)
[2024-11-08] MEDS ORDERED: ONDANSETRON 4 MG/2 ML VIAL IVP PRN (12:52)
[2024-11-08] MEDS: HYDROmorphone 0.5 MG/0.5 ML SYRINGE IVP PRN ×2 (13:17→20:52)
--- NOTE | 2024-11-08 13:21 | P.OP ---
Date of Procedure: 11/08/24 Procedure(s) Performed: PREOPERATIVE DIAGNOSIS: Left breast cancer POSTOPERATIVE DIAGNOSIS: Same PROCEDURE: Left breast modified radical mastectomy SURGEON: Carlos A EBL: 25 cc ANESTHESIA: General COMPLICATIONS: None OPERATIVE PROCEDURE: Patient was placed on the operating room table in the supine position. 2 mL of methylene blue was injected into the subareolar space. The breast was then massaged for 5 minutes. The chest breast and axillary regions were prepped and draped sterilely. Using the skin marker the proposed incision sites were drawn out on the chest wall. The patient had a large fungating mass present in the lower outer quadrant. The open wound measured 3 x 4 cm. The edges were friable and bleeding. The superior incision was first created. The incision was elliptical in nature encompassing the nipple areolar complex and mass. Flaps were raised superiorly until the chest wall was reached. The inferior incision was then created. This took place down to the chest wall as well. Vessels were either clipped or divided using electrocautery or LigaSure. Larger vessels were tied using 3-0 Vicryl ties. We then removed the breast from the chest wall. As I palpated the breast specimen posteriorly where the palpable mass was located I was concerned that there was active diseas e there. This was marked on our specimen with a silk suture with 2 strings. I then removed a circular portion of the chest wall structures including the pectoralis major muscle and a portion of the pectoralis minor inferior to the. This portion of tissue removed and the bone measured 4 x 3 cm. The deep portion of this new margin was painted blue and sent to pathology separately. As we removed the remainder of the specimen away from the chest wall in the axillary region was carefully dissected. There was no significant activity with the arm methylene blue or radiotracer. For that reason a axillary node dissection took place. The axillary vein was identified. The axillary contents were swept inferiorly from that point dividing the superficial vascular structures. The long thoracic and thoracodorsal nerves were spared and protected. The specimen was then marked with a single string silk stitch laterally to identify the axillary tail. The specimen was passed off. Clips were used in a circular manner around the deep chest wall margin where the new margin was taken. This was performed to notify radiation oncology of the potential positive margin site. The area was then thoroughly irrigated. No bleeding was seen. 2 drains were placed. One was placed with the flap the other in the axilla. The subcutaneous tissues were then closed using 3-0 Vicryl sutures and the skin was closed using alex given the tension on the incision and the suspected issues with poor healing from previous radiation. Both drains were sutured in place using 3-0 silk sutures. Sterile dressings and bacitracin ointment was applied. DISPOSITION: Stable to recovery room
--- NOTE | 2024-11-08 14:21 | P.NAPBC ---
NAPBC Queries - NAPBC Queries Was patient's case review presented at [facility] tumor board? If no, comment.: Yes Was patient's pathology reviewed at [facility]? If no, comment.: Yes Was breast conservation surgery offered? If no, comment.: No Was sentinel node biopsy offered? If no, comment.: Yes Was diagnosis confirmed by percutaneous core biopsy? If no, comment.: Yes Is patient mastectomy patient?: Yes Was a preop referral to reconstructive surgeon offered?: Yes Clinical Stage: 3
[2024-11-08 14:23] LABS: Glucose,Whole Blood 202 mg/dL (70-110)
[2024-11-08 17:25] LABS: Glucose,Whole Blood 201 mg/dL (70-110)
[2024-11-08] MEDS ORDERED: DEXTROSE 50% SYRINGE 50 ML IVP PRN ×2 (19:26)
[2024-11-08 20:28] LABS: Glucose,Whole Blood 249 mg/dL (70-110)
[2024-11-08] MEDS: FAMOTIDINE 20 MG TAB PO SCH (20:42)
[2024-11-08] MEDS: DOCUSATE 100 MG CAP PO SCH (20:42)
[2024-11-08] MEDS: LEVOTHYROXINE 88 MCG TAB PO SCH (20:43)
[2024-11-08] MEDS: INSULIN ASPART (NovoLOG) 100 UNIT/ML VIAL SQ SCH (20:43)
[2024-11-08] MEDS: GABAPENTIN 300 MG CAP PO SCH (20:43)
[2024-11-08] MEDS: NYSTATIN 100,000 UNIT/GM POWD 15 GM TOPICAL SCH (20:53)
[2024-11-08] MEDS: HEPARIN SODIUM,PORCINE 5,000 UNIT/ML 1 ML VIAL SQ SCH (23:12)
[2024-11-08] MEDS: traMADol 50 MG TAB PO PRN (23:12)
[2024-11-09 01:41] VITALS: RESP 16
[2024-11-09] MEDS: SODIUM CHLORIDE 0.9% 1,000 ML IV ONE (02:37)
[2024-11-09 05:34] LABS: African American GFR (CKD) >90 (>60 ml/min/1.73 sqM); Anion Gap 3 mmol/L; Blood Urea Nitrogen 17 mg/dL (7-17); Carbon Dioxide 22 mmol/L (22-30); Chloride 113 mmol/L (98-107); Glucose 153 mg/dL (74-99); Non-African American GFR(CKD) 81 (>60 ml/min/1.73 sqM); Sodium 138 mmol/L (137-145)
[2024-11-09 05:45] LABS: Basophils % (A) 0 %; Eosinophils # (A) 0.1 k/uL (0-0.7); Eosinophils % (A) 1 %; HCT 33.4 % (34.0-46.0); Lymphocytes # (A) 1.5 k/uL (1.0-4.8); Lymphocytes % (A) 17 %; MCHC 33.5 g/dL (31.0-37.0); MCV 83.6 fL (80.0-100.0); Mean Platelet Volume 8.1; Monocytes # (A) 0.7 k/uL (0-1.0); Monocytes % (A) 7 %; Neutrophils # (A) 6.6 k/uL (1.3-7.7); Neutrophils % (A) 73 %; Platelet Count 217 k/uL (150-450); RBC 3.99 m/uL (3.80-5.40); RDW 13.2 % (11.5-15.5); WBC 9.1 k/uL (3.8-10.6)
[2024-11-09 05:46] LABS: Potassium 4.7 mmol/L (3.5-5.1)
[2024-11-09 05:48] LABS: HGB 11.2 gm/dL (11.4-16.0)
[2024-11-09 07:20] LABS: Glucose,Whole Blood 129 mg/dL (70-110)
[2024-11-09] MEDS: VENLAFAXINE HCL ER 75 MG CAP PO SCH (08:07)
[2024-11-09 12:17] LABS: Glucose,Whole Blood 120 mg/dL (70-110)
--- NOTE | 2024-11-09 12:26 | P.DS ---
Providers Expected date of discharge: 11/09/24 Attending physician: Krystian Strauss Consults: 11/08/24 12:52 Consult Physician Routine Consulting Provider: Bright Hopkins Consult Reason/Comments: Medical management Do you want consulting provider notified?: Yes Primary care physician: Bright Hopkins Hospital Course: Discharge diagnosis 1. Left breast cancer Hospital course This is a 69-year-old female with left breast cancer. She is status post left breast modified radical mastectomy. Patient tolerated surgery well. Pain is controlled. She has been up and ambulating. She is afebrile. She is tolera ting diet. Incision site clean dry and intact. She is stable for discharge. Please refer to chart for any further details. Physician Materials Supervisor note has been reviewed by physician. Signing provider agrees with the documented findings, assessment, and plan of care. Patient Condition at Discharge: Stable Plan - Discharge Summary Discharge Rx Participant: No New Discharge Prescriptions: Continue Venlafaxine HCl ER [Effexor XR] 75 mg PO DAILY Nystatin 100,000 Unit/gm Powd [Mycostatin Powder] 1 applic TOPICAL BID each Levothyroxine Sodium [Synthroid] 175 mcg PO HS Magnesium Oxide [Magox 400] 400 mg PO WEEKLY Gabapentin [Neurontin] 100 mg PO BID PRN PRN Reason: Pain Gabapentin 300 mg PO HS Discharge Medication List Levothyroxine Sodium [Synthroid] 175 mcg PO HS 10/15/23 [History] Venlafaxine HCl ER [Effexor XR] 75 mg PO DAILY 10/15/23 [History] Magnesium Oxide [Magox 400] 400 mg PO WEEKLY 03/19/24 [History] Nystatin 100,000 Unit/gm Powd [Mycostatin Powder] 1 applic TOPICAL BID each 03/24/24 [Rx] Gabapentin 300 mg PO HS 07/01/24 [History] Gabapentin [Neurontin] 100 mg PO BID PRN 07/01/24 [History] Follow up Appointment(s)/Referral(s): [facility], [NON-STAFF] - 1-2 Days Krystian Strauss MD [Medical Doctor] - 1 Week Activity/Diet/Wound Care/Special Instructions: No lifting over 10 pounds You may shower. No soaking or tub baths for 2 weeks Very light activity until you are reevaluated at your follow up appointment with your surgeon Take Tylenol and Motrin [id number] as needed for pain Keep a log of BLANCA drain output and bring with you to your follow-up appointment Milk/strip drains 2-3 times a day Discharge Disposition: HOME WITH HOME HEALTH SERVICES
[2024-11-09 12:38] VITALS: BP 101/64; PULSE 81; TEMP 98.4
--- NOTE | 2024-11-10 15:12 | P.CONS ---
History of Present Illness - Reason for Consult Consult date: 11/09/24 Medical management left modified radical mastectomy - History of Present Illness This is a very pleasant 69-year-old female who was admitted under general surgery services status post left modified radical mastectomy for breast cancer and follows with Dr. Strauss general surgeon as well as Dr. Hernandes oncology outpatient. Patient follows with Dr. Hopkins in the outpatient setting with a past medical history of diabetes mellitus, GERD, hypothyroidism, left breast cancer, anxiety, and obesity. Patient reports to feeling well today and denies any active bleeding at the left breast site and has been using her incentive sp irometer. Patient does have an appointment with her oncologist outpatient. REVIEW OF SYSTEMS: CONSTITUTIONAL: No fever, no malaise, no fatigue. HEENT: No recent visual problems or hearing problems. Denied any sore throat. CARDIOVASCULAR: No chest pain, orthopnea, PND, no palpitations, no syncope. PULMONARY: No shortness of breath, no cough, no hemoptysis. GASTROINTESTINAL: No diarrhea, no nausea, no vomiting, no abdominal pain. NEUROLOGICAL: No headaches, no weakness, no numbness. HEMATOLOGICAL: Denies any bleeding or petechiae. GENITOURINARY: Denies any burning micturition, frequency, or urgency. MUSCULOSKELETAL/RHEUMATOLOGICAL: Denies any joint pain, swelling, or any muscle pain. ENDOCRINE: Denies any polyuria or polydipsia. The rest of the 14-point review of systems is negative. PHYSICAL EXAMINATION: GENERAL: The patient is alert and oriented x3, not in any acute distress. Well developed, well nourished. Obese HEENT: Pupils are round and equally reacting to light. EOMI. No scleral icterus. No conjunctival pallor. Normocephalic, atraumatic. No pharyngeal erythema. No thyromegaly. CARDIOVASCULAR: S1 and S2 present. No murmurs, rubs, or gallops. Left breast chest slight dressing is dry and intact PULMONARY: Chest is clear to auscultation, no wheezing or crackles. ABDOMEN: Soft, nontender, nondistended, normoactive bowel sounds. No palpable organomegaly. MUSCULOSKELETAL: No joint swelling or deformity. EXTREMITIES: No cyanosis, clubbing, or pedal edema. NEUROLOGICAL: Gross neurological examination did not reveal any focal deficits. SKIN: No rashes. Assessment: Status post modified left breast mastectomy due to breast cancer History of diabetes mellitus, diet controlled GERD Hypothyroidism History of anxiety Obesity with a BMI of 37.0 GI prophylaxis DVT prophylaxis Full code Plan: Patient was admitted under general surgery services status post mastectomy on the left doing relatively well. Hemoglobin is stable with no active bleeding noted at the site Patient has been instructed to continue incentive spirometer at least 10 times every hour while awake Recommend keeping your follow-up appointment with your primary care provider Dr. Hopkins as scheduled in the outpatient setting Follow-up with oncology outpatient Patient is medically stable once cleared by general surgery services for discharge. Thank you kindly for this consultation. We will continue to follow with general surgery during hospitalization. The impression and plan of care has been dictated by Marifer Velazco, Nurse Practitioner as directed. Dr. Jb MD I have performed a history and examination and MDM of this patient, discussed the same with the dictator, and agree with the dictator's assessment and plan as written ,documented as a scribe. Based on total visit time, I have performed more than 50% of the visit. Past Medical History Past Medical History: Cancer, Diabetes Mellitus, GERD/Reflux, Hearing Disorder / Deafness, Thyroid Disorder Additional Past Medical History / Comment(s): Current left breast cancer. Diet Controlled Diabetes.. Hx skin cancer in 2017. Hx left breast cancer in 1999. Migraines. Hemangioma, dizziness. Hard of hearing. 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 medi port placement, Left breat mastectomy 11/08/24 with sentinal node biopsy Past Anesthesia/Blood Transfusion Reactions: Motion Sickness, Postoperative Nausea & Vomiting (PONV) Additional Past Anesthesia/Blood Transfusion Reaction / Comm: Vertigo. Past Psychological History: Anxiety Additional Psychological History / Comment(s): Effexor for menopause symptoms. anxious r/t surgery, had reaction to chemo caused anxiety and leg problems Smoking Status: Never smoker Past Alcohol Use History: None Reported Past Drug Use History: None Reported - Past Family History Mother Family Medical History: Cancer Additional Family Medical History / Comment(s): Sarcoma. Father Family Medical History: Cancer Additional Family Medical History / Comment(s): Colon cancer. Medications and Allergies Home Medications Medication Instructions Recorded Confirmed Type Levothyroxine Sodium [Synthroid] 175 mcg PO HS 10/15/23 11/05/24 History Venlafaxine HCl ER [Effexor XR] 75 mg PO DAILY 10/15/23 11/05/24 History Magnesium Oxide [Magox 400] 400 mg PO WEEKLY 03/19/24 11/05/24 History Nystatin 100,000 Unit/gm Powd 1 applic TOPICAL BID each 03/24/24 11/05/24 Rx [Mycostatin Powder] Gabapentin 300 mg PO HS 07/01/24 11/05/24 History Gabapentin [Neurontin] 100 mg PO BID PRN 07/01/24 11/05/24 History Allergies Allergy/AdvReac Type Severity Reaction Status Date / Time ceftriaxone [From Rocephin] Allergy Rash/Hives Verified 11/05/24 14:21 cephalexin monohydrate AdvReac Nausea & Verified 11/05/24 13:42 [From Keflex] Vomiting propoxyphene HCl AdvReac Nausea & Verified 11/05/24 13:42 [From Darvon] Vomiting Physical Exam Vitals: Vital Signs Temp Pulse Resp BP Pulse Ox 11/09/24 07:15 98.0 F 85 16 96/60 95 11/09/24 04:25 89 91/51 11/09/24 01:07 98.6 F 84 16 84/46 93 L 11/08/24 19:06 98.4 F 95 17 92/50 95 11/08/24 17:00 84 108/61 95 11/08/24 16:29 80 95/59 92 L 11/08/24 15:59 84 98/61 91 L 11/08/24 15:45 86 102/64 93 L 11/08/24 15:29 84 89/54 93 L 11/08/24 15:14 85 90/55 92 L 11/08/24 14:59 87 96/60 94 L 11/08/24 14:45 98 F 90 18 115/72 97 11/08/24 14:09 88 14 107/55 96 11/08/24 13:54 88 14 100/50 97 11/08/24 13:39 87 14 100/51 98 11/08/24 13:24 89 14 95/46 98 11/08/24 13:09 88 14 103/51 100 11/08/24 12:54 97.5 F L 89 16 136/60 100 Intake and Output 11/08/24 11/09/24 11/09/24 22:59 06:59 14:59 Intake Total 358 1825 Output Total 105 105 Balance 253 1720 Intake: Intake, IV Titration 1825 Amount Lactated Ringers 1,000 ml 825 @ 75 mls/hr IV .[id number] CONSTANTINO Rx#:[id number] Sodium Chloride 0.9% 1, 1000 000 ml @ 999 mls/hr IV . Q1H1M ONE Rx#:[id number] Oral 358 Output: Drainage 105 105 Left Breast 20 45 Left Lateral Breast 85 60 Other: Voiding Method Bedside Commode # Voids 1 1 1 Weight 94.8 kg Results CBC & Chem 7: 11/09/24 04:35 11/09/24 04:35 Labs: Abnormal Lab Results - Last 24 Hours (Table) 11/08/24 11/08/24 11/08/24 Range/Units 09:17 10:01 14:22 Hgb (11.4-16.0) gm/dL Hct (34.0-46.0) % Chloride (98-107) mmol/L Glucose 175 H (74-99) mg/dL POC Glucose (mg/dL) 202 H (70-110) mg/dL Hemoglobin A1c 7.4 H (<=6.0) % Calcium (8.4-10.2) mg/dL Total Protein 6.2 L (6.3-8.2) g/dL 11/08/24 11/08/24 11/09/24 Range/Units 17:23 20:26 04:35 Hgb 11.2 L D (11.4-16.0) gm/dL Hct 33.4 L (34.0-46.0) % Chloride (98-107) mmol/L Glucose (74-99) mg/dL POC Glucose (mg/dL) 201 H 249 H (70-110) mg/dL Hemoglobin A1c (<=6.0) % Calcium (8.4-10.2) mg/dL Total Protein (6.3-8.2) g/dL 11/09/24 11/09/24 Range/Units 04:35 07:18 Hgb (11.4-16.0) gm/dL Hct (34.0-46.0) % Chloride 113 H (98-107) mmol/L Glucose 153 H (74-99) mg/dL POC Glucose (mg/dL) 129 H (70-110) mg/dL Hemoglobin A1c (<=6.0) % Calcium 8.0 L (8.4-10.2) mg/dL Total Protein (6.3-8.2) g/dL
== END 2024-11-09 13:26 | disposition home health service (06) ==
LOC: OR 08:30 → 5NMEDONC 13:40 → OR 11-09 13:26
PROVIDERS: ATTEND Surgery
DX: D05.12 Intraductal carcinoma in situ of left breast (principal); E11.9 Type 2 diabetes mellitus without complications; K21.9 Gastro-esophageal reflux disease without esophagitis; E03.9 Hypothyroidism, unspecified; F41.9 Anxiety disorder, unspecified; E66.9 Obesity, unspecified; Z68.37 Body mass index [BMI] 37.0-37.9, adult; Z79.890 Hormone replacement therapy; Z79.899 Other long term (current) drug therapy; Z80.0 Family history of malignant neoplasm of digestive organs; Z85.3 Personal history of malignant neoplasm of breast; Z85.828 Personal history of other malignant neoplasm of skin; Z88.1 Allergy status to other antibiotic agents; Z90.49 Acquired absence of other specified parts of digestive tract; Z90.710 Acquired absence of both cervix and uterus
CPT/HCPCS: 19307; 80053; 80048; 85025 ×2; 88307; 88309; 83036; 38792; A9520; J0330; J1200; J1644 ×2; J1100; J0690; J2405; J2003; J3010; J1171 ×2; J1885; J2704; Q9968; J2371

== ENCOUNTER 2025-02-03 10:05 | Emergency (ER) | payer MEDICARE, BC ==
[2025-02-03] MEDS: MORPHINE SULFATE 4 MG/ML SYRINGE IVP STA (11:00)
[2025-02-03] MEDS: LIDOCAINE 4% PATCH TOPICAL ONE (11:01)
--- NOTE | 2025-02-03 11:02 | ED ---
Fall HPI - General Chief Complaint: Fall Stated Complaint: Fall Time Seen by Provider: 02/03/25 10:21 Source: patient, EMS, RN notes reviewed Mode of arrival: EMS Limitations: no limitations - History of Present Illness Initial Comments: This is a 69-year-old female who presents to the emergency department for a fall. States that she was getting out of the shower last night and when she went to try to put on her shoes she slipped and fell in the bathtub. This occurred around 7 PM. She was unable to get up on her own and remained in the bathtub all night until maintenance found her this morning and called EMS. She did hit her head but states that it was a small injury and denies any loss of consciousness. Not taking any blood thinners. Also complains of pain to the lower back, right elbow, and left hip. MD Complaint: fall - Related Data Home Medications Medication Instructions Recorded Confirmed Levothyroxine Sodium [Synthroid] 175 mcg PO HS 10/15/23 02/03/25 Venlafaxine HCl ER [Effexor XR] 75 mg PO HS 10/15/23 02/03/25 Capecitabine 500mg Tab 2 tab PO DIRECTED 02/03/25 02/03/25 Ondansetron [Zofran] 4 mg PO Q4H PRN 02/03/25 02/03/25 Previous Rx's Medication Instructions Recorded Levofloxacin [Levaquin] 750 mg PO DAILY 5 Days #5 tab 02/03/25 Allergies Allergy/AdvReac Type Severity Reaction Status Date / Time ceftriaxone [From Rocephin] Allergy Rash/Hives Verified 02/03/25 12:32 cephalexin monohydrate AdvReac Nausea & Verified 02/03/25 12:32 [From Keflex] Vomiting propoxyphene HCl AdvReac Nausea & Verified 02/03/25 12:32 [From Darvon] Vomiting Review of Systems ROS Statement: Those systems with pertinent positive or pertinent negative responses have been documented in the HPI. ROS Other: All systems not noted in ROS Statement are negative. Past Medical History Past Medical History: Cancer, Diabetes Mellitus, GERD/Reflux, Hearing Disorder / Deafness, Thyroid Disorder Additional Past Medical History / Comment(s): Current left breast cancer. Diet Controlled Diabetes.. Hx skin cancer in 2017. Hx left breast cancer in 1999. Migraines. Hemangioma, dizziness. Hard of hearing. 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 medi port placement, Left breat mastectomy 11/08/24 with sentinal node biopsy Past Anesthesia/Blood Transfusion Reactions: Motion Sickness, Postoperative Nausea & Vomiting (PONV) Additional Past Anesthesia/Blood Transfusion Reaction / Comment(s): Vertigo. Past Psychological History: Anxiety Smoking Status: Never smoker Past Alcohol Use History: None Reported Past Drug Use History: None Reported - Past Family History Mother Family Medical History: Cancer Additional Family Medical History / Comment(s): Sarcoma. Father Family Medical History: Cancer Additional Family Medical History / Comment(s): Colon cancer. General Exam Limitations: no limitations General appearance: alert, in no apparent distress Head exam: Present: atraumatic, normocephalic, normal inspection Eye exam: Present: normal appearance, PERRL, EOMI. Absent: scleral icterus, conjunctival injection, periorbital swelling Respiratory exam: Present: normal lung sounds bilaterally. Absent: respiratory distress, wheezes, rales, rhonchi, stridor Cardiovascular Exam: Present: regular rate, normal rhythm Neurological exam: Present: alert, oriented X3, CN II-XII intact Psychiatric exam: Present: normal affect, normal mood Skin exam: Present: warm, dry, intact, normal color. Absent: rash Course Vital Signs 02/03/25 02/03/25 10:18 13:26 Temperature 98.3 F 98.1 F Pulse Rate 96 86 Respiratory 18 16 Rate Blood Pressure 123/83 144/66 O2 Sat by Pulse 97 96 Oximetry Medical Decision Making - Medical Decision Making This is a 69-year-old female who presents to the emergency department for a fall. Was pt. sent in by a medical professional or institution? @ -No Did you speak to anyone other than the patient for history? @ -No Did you review nursing and triage notes? @ -Yes, and I agree, it is accurate with regards to the patient's symptoms. Were old charts reviewed? @ -No Differential Diagnosis? @ -Differential Musculoskeletal Muscular strain, contusion, ligament sprain, fracture, arthritis, septic arthritis, bursitis, cellulitis, muscle spasm, nerve compression, DVT, arterial occlusion, herpes zoster, electrolyte abnormality, tumor.... This is not meant to be in all inclusive list EKG interpreted by me (3pts min.)? @ -Not obtained X-rays interpreted by me (1pt min.)? @ -X-ray of the lumbar spine, right elbow, and left hip/AP pelvis obtained. My interpretation of all images identifies no acute fractures. CT interpreted by me (1pt min.)? @ -Computed tomography scan of the brain and c-spine obtained. My interpretation identifies no evidence of an acute intracranial hemorrhage, skull fracture, or cervical spine fracture. U/S interpreted by me (1pt. min.)? @ -Not obtained What testing was considered but not performed? (CT, X-rays, U/S, labs)? Why? @ -None What meds were considered but not given? Why? @ -None Did you discuss the management of the patient with other professionals? @ -No Did you reconcile home meds? @ -No Was smoking cessation discussed for >3mins.? @ -No Was critical care preformed (if so, how long)? @ -No Were there social determinants of health that impacted care today? How? (Homelessness, low income, unemployed, alcoholism, drug addiction, transportation, low edu. Level, literacy, decrease access to med. care, half-way, rehab)? @ -No Was there de-escalation of care discussed even if they declined? (Discuss DNR or withdrawal of care, Hospice)? @ -No What co-morbidities impacted this encounter? (DM, HTN, Smoking, COPD, CAD, Cancer, CVA, Hep., AIDS, mental health diagnosis, sleep apnea, morbid obesity)? @ -None Was patient admitted / discharged? @ -Discharged. Lab work demonstrates leukocytosis with a white blood cell count of 14. Creatinine kinase only mildly elevated at 256. Urinalysis consistent with infection and urine was sent for culture. CT scan of the brain and C-spine obtained revealing no acute intracranial process or signs of a cervical spine fracture. X-ray of the lumbar spine, right elbow, and left hip/AP pelvis obtained revealing no acute process. Symptoms treated in the emergency department. I did offer admission given the UTI and fall, however patient states that she felt fine and was comfortable going home. She was given strict return parameters. She is allergic to cephalosporins and Levaquin was prescribed for the UTI. Advised follow-up with her PCP in the next couple of days. Patient discharged home in stable condition. Case discussed with ED attending Dr. Grant. Return precautions reviewed in depth, the patient is instructed to return to the emergency department with any new, worsening, or concerning symptoms. Patient verbalized understanding. Undiagnosed new problem with uncertain prognosis? @ -None Drug Therapy requiring intensive monitoring for toxicity (Heparin, Nitro, Insulin, Cardizem)? @ -None Were any procedures done? @ -None Diagnosis/symptom? @ -Fall, UTI Acute, or Chronic, or Acute on Chronic? @ -Acute Uncomplicated (without systemic symptoms) or Complicated (systemic symptoms)? @ -Uncomplicated Side effects of treatment? @ -None Exacerbation, Progression, or Severe Exacerbation] @ -Not applicable Poses a threat to life or bodily function? @ -No - Lab Data Result diagrams: 02/03/25 11:05 02/03/25 11:05 Lab Results 02/03/25 02/03/25 02/03/25 Range/Units 11:05 11:05 12:01 WBC 14.0 H (3.8-10.6) k/uL RBC 5.21 (3.80-5.40) m/uL Hgb 13.9 (11.4-16.0) gm/dL Hct 43.8 (34.0-46.0) % MCV 84.1 (80.0-100.0) fL MCH 26.7 (25.0-35.0) pg MCHC 31.7 (31.0-37.0) g/dL RDW 13.9 (11.5-15.5) % Plt Count 234 (150-450) k/uL MPV 6.8 Neutrophils % 88 % Lymphocytes % 6 % Monocytes % 4 % Eosinophils % 0 % Basophils % 0 % Neutrophils # 12.4 H (1.3-7.7) k/uL Lymphocytes # 0.9 L (1.0-4.8) k/uL Monocytes # 0.6 (0-1.0) k/uL Eosinophils # 0.0 (0-0.7) k/uL Basophils # 0.0 (0-0.2) k/uL Sodium 137 (137-145) mmol/L Potassium 4.2 (3.5-5.1) mmol/L Chloride 103 (98-107) mmol/L Carbon Dioxide 26 (22-30) mmol/L Anion Gap 8 mmol/L BUN 23 H (7-17) mg/dL Creatinine 0.79 (0.52-1.04) mg/dL Est GFR (CKD-EPI)AfAm 89 (>60 ml/min/1.73 sqM) Est GFR (CKD-EPI)NonAf 77 (>60 ml/min/1.73 sqM) Glucose 213 H (74-99) mg/dL Calcium 9.0 (8.4-10.2) mg/dL Phosphorus 3.2 (2.5-4.5) mg/dL Magnesium 1.9 (1.6-2.3) mg/dL Total Bilirubin 1.0 (0.2-1.3) mg/dL AST 23 (14-36) U/L ALT 12 (4-34) U/L Alkaline Phosphatase 147 H (38-126) U/L Creatine Kinase 256 H (30-135) U/L Total Protein 6.5 (6.3-8.2) g/dL Albumin 3.9 (3.5-5.0) g/dL Urine Color Yellow Urine Appearance Cloudy H (Clear) Urine pH 5.5 (5.0-8.0) Ur Specific [place] 1.022 (1.001-1.035) Urine Protein 1+ H (Negative) Urine Glucose (UA) Trace H (Negative) Urine Ketones Negative (Negative) Urine Blood Trace H (Negative) Urine Nitrite Positive H (Negative) Urine Bilirubin Negative (Negative) Urine Urobilinogen <2.0 (<2.0) mg/dL Ur Leukocyte Esterase Large H (Negative) Urine RBC 9 H (0-5) /hpf Urine WBC >182 H (0-5) /hpf Ur Squamous Epith Cells 1 (0-4) /hpf Urine Bacteria Many H (None) /hpf Hyaline Casts 11 H (0-2) /lpf Urine Mucus Many H (None) /hpf - Radiology Data Radiology results: report reviewed, image reviewed Disposition Clinical Impression: Fall, UTI (urinary tract infection) Disposition: HOME SELF-CARE Instructions (If sedation given, give patient instructions): Urinary Tract Infection in Women (ED), Fall Prevention for Older Adults (ED) Additional Instructions: Return to the emergency department with any new, worsening, or concerning symptoms. Take the antibiotic as prescribed for 5 days. Alternate with ibuprofen and Tylenol as needed for pain relief. Follow up with your primary care provider in 1-2 days. Prescriptions: Levofloxacin [Levaquin] 750 mg PO DAILY 5 Days #5 tab Is patient prescribed a controlled substance at d/c from ED?: No Referrals: Bright Hopkins MD [Primary Care Provider] - 1-2 days Time of Disposition: 12:48
--- NOTE | 2025-02-03 11:02 | CT ---
EXAMINATION TYPE: CT brain cspine wo con CT DLP: 1326 mGycm, Automated exposure control for dose reduction was used. DATE OF EXAM: 02/03/2025 10:54 AM COMPARISON: CT brain 06/30/2024, MRI brain 07/01/2024, 01/24/2024. CLINICAL INDICATION:Female, 69 years old with history of Fall; fall, pain TECHNIQUE: Brain: Multiple axial CT images of the brain were obtained without IV contrast. Cspine: Axial CT images from the skull base to the inferior aspect of T2 we obtained without intraven ous contrast. Coronal and sagittal reformatted images were also reviewed. FINDINGS: Brain: Extra-axial spaces: No abnormal extra-axial fluid collections. Ventricular system: Within normal limits Cerebral parenchyma: No acute intraparenchymal hemorrhage or mass effect. The romo-white junction is well differentiated. Scattered hypoattenuating areas are seen within the periventricular and subcort ical white matter. Most pronounced within the right frontal lobe. Cerebellum: Unremarkable. Mass effect: No evidence of midline shift. Intracranial vasculature: unremarkable Soft tissues: Right posterior parietal scalp contusion. Calvarium/osseous structures: No depressed skull fracture. Paranasal sinuses and mastoid air cells: The mastoid air cells are clear. Right inferior maxillary si nus 0.8 cm mucous retention cyst. Remaining paranasal sinuses are clear. Visualized orbits: Orbital contents are intact. Cervical spine: Fracture: None. Osseous structures: Multilevel degenerative disc disease changes with endplate spurring and disc oste ophyte complex's. Multilevel facet arthropathy. Degenerative changes of the right TMJ joint. Vertebral alignment: Degenerative grade 1 anterolisthesis of C4 on C5. Spinal canal/Neural Foramina: Disc osteophyte complexes at C3-C4 and C5-C6 and C6-C7 with at least mi ld spinal canal stenosis. Facet joint uncovertebral joint arthropathy scattered throughout the cervic al spine with varying degrees of neural foraminal stenosis. Neck soft tissues: Prevertebral soft tissues are within normal limits. Other: The airway is patent. Partial visualization of right neck vascular catheter. IMPRESSION: 1. No acute intracranial process. 2. Nonspecific white matter changes, likely secondary to chronic small vessel ischemic disease. 3. Acute posterior right parietal scalp contusion. 4. No evidence of cervical spine fracture. 5. Mild multilevel degenerative disc disease and facet arthropathy. [facility]: [id number], 02/03/2025 11:00 AM
[2025-02-03] MEDS: SODIUM CHLORIDE 0.9% 1,000 ML IV STA (11:03)
[2025-02-03 11:15] LABS: Basophils % (A) 0 %; Eosinophils % (A) 0 %; HCT 43.8 % (34.0-46.0); HGB 13.9 gm/dL (11.4-16.0); Lymphocytes # (A) 0.9 k/uL (1.0-4.8); Lymphocytes % (A) 6 %; MCH 26.7 pg (25.0-35.0); MCHC 31.7 g/dL (31.0-37.0); MCV 84.1 fL (80.0-100.0); Mean Platelet Volume 6.8; Monocytes # (A) 0.6 k/uL (0-1.0); Monocytes % (A) 4 %; Neutrophils # (A) 12.4 k/uL (1.3-7.7); Neutrophils % (A) 88 %; Platelet Count 234 k/uL (150-450); RBC 5.21 m/uL (3.80-5.40); RDW 13.9 % (11.5-15.5)
[2025-02-03 11:29] LABS: ALT 12 U/L (4-34); AST 23 U/L (14-36); African American GFR (CKD) 89 (>60 ml/min/1.73 sqM); Albumin 3.9 g/dL (3.5-5.0); Alkaline Phosphatase 147 U/L (38-126); Anion Gap 8 mmol/L; Blood Urea Nitrogen 23 mg/dL (7-17); Carbon Dioxide 26 mmol/L (22-30); Chloride 103 mmol/L (98-107); Creatine Kinase 256 U/L (30-135); Glucose 213 mg/dL (74-99); Magnesium 1.9 mg/dL (1.6-2.3); Non-African American GFR(CKD) 77 (>60 ml/min/1.73 sqM); Phosphorus 3.2 mg/dL (2.5-4.5); Potassium 4.2 mmol/L (3.5-5.1); Sodium 137 mmol/L (137-145); Total Protein 6.5 g/dL (6.3-8.2)
--- NOTE | 2025-02-03 11:57 | XR ---
EXAMINATION TYPE: XR elbow complete RT DATE OF EXAM: 02/03/2025 11:44 AM COMPARISON: None CLINICAL INDICATION: Female, 69 years old with history of Fall; PHH, pain TECHNIQUE: XR elbow complete RT; elbow was examined in AP, lateral, and oblique projections. FINDINGS: No evidence of any acute osseous pathology, joint dislocation, or soft tissue swelling is n oted. No evidence of joint effusion is present. IV cannula noted. Soft tissue edema over the posteri or elbow. IMPRESSION: 1. No evidence of acute fracture. 2. Edema over the posterior elbow skin. [facility], , 02/03/2025 11:55 AM
--- NOTE | 2025-02-03 12:05 | XR ---
EXAMINATION TYPE: XR Hip LT and AP Pelvis DATE OF EXAM: 02/03/2025 11:44 AM COMPARISON: 03/21/2024 CLINICAL INDICATION: Female, 69 years old with history of Fall; PHH, pain TECHNIQUE: XR Hip LT and AP Pelvis; hip was examined in the frontal and lateral projections and a AP pelvis. FINDINGS: No evidence for acute process, joint dislocation or significant soft tissue swelling. Osteo phyte formation of the superior acetabulum of the hip. There is mild joint space narrowing. IMPRESSION: 1. No evidence for acute process. 2. Mild hip osteoarthrosis. [facility], , 02/03/2025 12:03 PM
--- NOTE | 2025-02-03 12:09 | XR ---
EXAMINATION TYPE: XR lumbar spine 2 or 3V DATE OF EXAM: 02/03/2025 11:44 AM COMPARISON: 03/21/2024 CLINICAL INDICATION: Female, 69 years old with history of Fall; PHH, pain TECHNIQUE: XR lumbar spine 2 or 3V - Frontal, lateral and coned in L5-S1 lateral views of the spine. FINDINGS: Similar compression deformity to the L3 vertebral body compared to 03/21/2024. Stable alignm ent of the spine. Large osteophytes throughout the exam. Cholecystectomy clips in the upper quadrant. IMPRESSION: 1. No acute fracture. 2. Similar L3 superior endplate deformity . 3. Moderate degeneration changes of the spine.. [facility], , 02/03/2025 12:06 PM
[2025-02-03 12:24] LABS: Appearance,Urine Cloudy (Clear); Bacteria,Urine Many /hpf; Bilirubin,Urine Negative (Negative); Blood,Urine Trace (Negative); Color,Urine Yellow; Glucose,Urine (UA) Trace (Negative); Hyaline Casts,Urine 11 /lpf (0-2); Ketones,Urine Negative (Negative); Leukocyte Esterase,Urine Large (Negative); Mucus,Urine Many /hpf; Nitrite,Urine Positive (Negative); PH, Urine 5.5 (5.0-8.0); Protein,Urine 1+ (Negative); RBC,Urine 9 /hpf (0-5); Specific Gravity,Urine 1.022 (1.001-1.035); Squamous Epithelial Cell,Urine 1 /hpf (0-4); Urobilinogen,Urine <2.0 mg/dL (<2.0); WBC,Urine >182 /hpf (0-5)
[2025-02-03 13:27] VITALS: BP 144/66; PULSE 86; RESP 16; TEMP 98.1
[2025-02-03] MEDS: traMADol 50 MG STARTER PACK 3 TAB BTL PO STA (13:29)
== END 2025-02-03 13:55 | disposition home or self-care (01) ==
LOC: EC 10:05
DX: Z04.3 Encounter for examination and observation following other accident (principal); N39.0 Urinary tract infection, site not specified; D72.829 Elevated white blood cell count, unspecified; R79.89 Other specified abnormal findings of blood chemistry
CPT/HCPCS: 36415; 80053; 82550; 83735; 84100; 85025; 81001; 87086; 87077; 87186; 72100; 73502; 73080; 72125; 70450; 99285; 96374; 96361; J2270

== ENCOUNTER 2025-04-11 01:37 | Emergency (ER) | payer MEDICARE, BC ==
[2025-04-11 01:43] VITALS: RESP 18; TEMP 98
--- NOTE | 2025-04-11 02:10 | ED ---
Abdominal Pain HPI <Kp Connor - Last Filed: 04/11/25 08:17> - General Source: patient, RN notes reviewed Mode of arrival: EMS Limitations: no limitations <Gosia Zhang - Last Filed: 04/11/25 15:46> - General Chief Complaint: Abdominal Pain Stated Complaint: Constipation Time Seen by Provider: 04/11/25 01:45 - History of Present Illness Initial Comments: 69-year-old female presenting to the emergency department via EMS for complaints of constipation and urinary symptoms. Patient states that she has been passing small balls of hard stool over the past 10 days and has not had a large formed bowel movement in this amount of time. Additionally, she states that over the past 2 to 3 days she has been experiencing increasing urinary frequency, urgency, dysuria and feels like she may have a urinary tract infection. Patient denies hematuria, vaginal discharge or odor. Patient denies history of bowel obstructions and states that she is still passing gas. Previous cholecystectomy. (Gosia Zhang) - Related Data Home Medications Medication Instructions Recorded Confirmed Levothyroxine Sodium [Synthroid] 175 mcg PO HS 10/15/23 02/03/25 Venlafaxine HCl ER [Effexor XR] 75 mg PO HS 10/15/23 02/03/25 Capecitabine 500mg Tab 2 tab PO DIRECTED 02/03/25 02/03/25 Ondansetron [Zofran] 4 mg PO Q4H PRN 02/03/25 02/03/25 Previous Rx's Medication Instructions Recorded Levofloxacin [Levaquin] 750 mg PO DAILY 5 Days #5 tab 02/03/25 Nitrofurantoin Monohyd/M-Cryst 100 mg PO Q12HR #14 cap 04/11/25 [Macrobid] Allergies Allergy/AdvReac Type Severity Reaction Status Date / Time ceftriaxone [From Rocephin] Allergy Rash/Hives Verified 04/11/25 01:43 cephalexin monohydrate AdvReac Nausea & Verified 04/11/25 01:43 [From Keflex] Vomiting propoxyphene HCl AdvReac Nausea & Verified 04/11/25 01:43 [From Darvon] Vomiting Review of Systems ROS Other: All systems not noted in ROS Statement are negative. <Kp Connor - Last Filed: 04/11/25 08:17> ROS Other: All systems not noted in ROS Statement are negative. <Gosia Zhang - Last Filed: 04/11/25 15:46> ROS Statement: Those systems with pertinent positive or pertinent negative responses have been documented in the HPI. Past Medical History Past Medical History: Cancer, Diabetes Mellitus, GERD/Reflux, Hearing Disorder / Deafness, Thyroid Disorder Additional Past Medical History / Comment(s): Current left breast cancer. Diet Controlled Diabetes.. Hx skin cancer in 2017. Hx left breast cancer in 1999. Migraines. Hemangioma, dizziness. Hard of hearing. 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 medi port placement, Left breat mastectomy 11/08/24 with sentinal node biopsy Past Anesthesia/Blood Transfusion Reactions: Motion Sickness, Postoperative Nausea & Vomiting (PONV) Additional Past Anesthesia/Blood Transfusion Reaction / Comment(s): Vertigo. Past Psychological History: Anxiety Smoking Status: Never smoker Past Alcohol Use History: None Reported Past Drug Use History: None Reported - Past Family History Mother Family Medical History: Cancer Additional Family Medical History / Comment(s): Sarcoma. Father Family Medical History: Cancer Additional Family Medical History / Comment(s): Colon cancer. <Gosia Zhang - Last Filed: 04/11/25 15:46> General Exam Limitations: no limitations ENT exam: Present: normal exam, mucous membranes moist Respiratory exam: Present: normal lung sounds bilaterally. Absent: respiratory distress, wheezes, rales, rhonchi, stridor Cardiovascular Exam: Present: regular rate, normal rhythm, normal heart sounds. Absent: systolic murmur, diastolic murmur, rubs, gallop, clicks GI/Abdominal exam: Present: soft, normal bowel sounds. Absent: distended, tenderness, guarding, rebound, rigid Extremities exam: Present: normal inspection, full ROM, normal capillary refill. Absent: tenderness, pedal edema, joint swelling, calf tenderness Back exam: Present: normal inspection. Absent: CVA tenderness (R), CVA tenderness (L) Skin exam: Present: warm, dry, intact, normal color. Absent: rash <Gosia Zhang - Last Filed: 04/11/25 15:46> Course Vital Signs 04/11/25 04/11/25 04/11/25 01:38 04:18 08:13 Temperature 98.0 F Pulse Rate 94 89 97 Respiratory 18 18 18 Rate Blood Pressure 133/71 139/74 130/76 O2 Sat by Pulse 99 96 98 Oximetry 04/11/25 08:49 Temperature Pulse Rate 95 Respiratory 18 Rate Blood Pressure 135/76 O2 Sat by Pulse 97 Oximetry Medical Decision Making <JaspreetroseannGosia - Last Filed: 04/11/25 15:46> - Medical Decision Making Was pt. sent in by a medical professional or institution (, PA, DIPLOMATIC OFFICER, urgent care, hospital, or senior living...) When possible be specific @ -No Did you speak to anyone other than the patient for history (EMS, parent, family, police, friend...)? What history was obtained from this source @ -No Did you review nursing and triage notes (agree or disagree)? Why? @ -I reviewed and agree with nursing and triage notes Were old charts reviewed (outside hosp., previous admission, EMS record, old EKG, old radiological studies, urgent care reports/EKG's, senior living records)? Report findings @ -No old charts were reviewed Differential Diagnosis (chest pain, altered mental status, abdominal pain women, abdominal pain men, vaginal bleeding, weakness, fever, dyspnea, syncope, headache, dizziness, GI bleed, back pain, seizure, CVA, palpatations, mental health, musculoskeletal)? @ -Differential Abdominal Pain Women: Appendicitis, Cholecystitis, diverticulosis, ischemic bowel, pancreatitis, hepatitis, UTI, gastroenteritis, AAA, incarcerated hernia, bowel obstruction, constipation, inflammatory bowel, hepatitis, peptic ulcer disease, splenic infarction, perforated viscus, vulvitis, ovarian torsion, PID, kidney stone, placenta abruption, this is not meant to be an all-inclusive list EKG interpreted by me (3pts min.). @ -None X-rays interpreted by me (1pt min.). @ -X-ray KUB no acute findings in the abdomen pelvis. CT interpreted by me (1pt min.). @ -None done U/S interpreted by me (1pt. min.). @ -None done What testing was considered but not performed or refused? (CT, X-rays, U/S, labs)? Why? @ -None What meds were considered but not given or refused? Why? @ -None Did you discuss the management of the patient with other professionals (professionals i.e. Dr., PA, DIPLOMATIC OFFICER, lab, RT, psych nurse, social science teacher, international controller, teacher, personal banking officer, case management specialist)? Give summary @ -No Was smoking cessation discussed for >3mins.? @ -No Was critical care preformed (if so, how long)? @ -No Were there social determinants of health that impacted care today? How? (Homelessness, low income, unemployed, alcoholism, drug addiction, transportation, low edu. Level, literacy, decrease access to med. care, halfway, rehab)? @ -No Was there de-escalation of care discussed even if they declined (Discuss DNR or withdrawal of care, Hospice)? DNR status @ -No What co-morbidities impacted this encounter? (DM, HTN, Smoking, COPD, CAD, Cancer, CVA, ARF, Chemo, Hep., AIDS, mental health diagnosis, sleep apnea, morbid obesity)? @ -None Was patient admitted / discharged? Hospital course, mention meds given and route, prescriptions, significant lab abnormalities, going to OR and other pertinent info. @ -Discharge. 69-year-old female presents emergency department via EMS for complaints of constipation and urinary symptoms. Patient's abdominal examination reveals mild distention with no tenderness. Equal bowel sounds are through all quadrants. Abdominal x-ray reveals no evidence of obstruction. Patient's urine sample is concerning for infection including blood, large leukocytes, white blood cells and bacteria. Patient is provided with prescription for Macrobid and instructed to follow-up with primary care provider for reevaluation. Return parameters discussed. case discussed with my attending, Dr. Connor, who discharged the patient after she recieved a dose of mag citrate in the ER. Undiagnosed new problem with uncertain prognosis? @ -No Drug Therapy requiring intensive monitoring for toxicity (Heparin, Nitro, Insulin, Cardizem)? @ -No Were any procedures done? @ -No Diagnosis/symptom? @ -Constipation, urinary tract infection Acute, or Chronic, or Acute on Chronic? @ -Acute Uncomplicated (without systemic symptoms) or Complicated (systemic symptoms)? @ -Uncomplicated Side effects of treatment? @ -No Exacerbation, Progression, or Severe Exacerbation? @ -No Poses a threat to life or bodily function? How? (Chest pain, [place], SC, pneumonia, PE, COPD, DKA, ARF, appy, cholecystitis, CVA, Diverticulitis, Homicidal, Suicidal, threat to staff... and all critical care pts) @ -No (Gosia Zhang) - Lab Data Lab Results 04/11/25 Range/Units 08:52 Urine Color Yellow Urine Appearance Cloudy H (Clear) Urine pH 6.0 (5.0-8.0) Ur Specific [place] 1.024 (1.001-1.035) Urine Protein 1+ H (Negative) Urine Glucose (UA) Negative (Negative) Urine Ketones 2+ H (Negative) Urine Blood Small H (Negative) Urine Nitrite Negative (Negative) Urine Bilirubin Negative (Negative) Urine Urobilinogen 2.0 (<2.0) mg/dL Ur Leukocyte Esterase Large H (Negative) Urine RBC 7 H (0-5) /hpf Urine WBC >182 H (0-5) /hpf Ur Squamous Epith Cells 15 H (0-4) /hpf Urine Bacteria Many H (None) /hpf Urine Mucus Few H (None) /hpf Disposition Is patient prescribed a controlled substance at d/c from ED?: No <Kp Connor - Last Filed: 04/11/25 08:17> Is patient prescribed a controlled substance at d/c from ED?: No <Gosia Zhang - Last Filed: 04/11/25 15:46> Clinical Impression: Constipation Disposition: HOME SELF-CARE Condition: Good Instructions (If sedation given, give patient instructions): Constipation (ED) Referrals: Bright Hopkins MD [Primary Care Provider] - 1-2 days
--- NOTE | 2025-04-11 04:58 | XR ---
EXAM: XR Abdomen, 2 Views CLINICAL HISTORY: ITS.REASON XR Reason: constipation TECHNIQUE: Frontal view of the abdomen/pelvis with upright view of the abdomen. COMPARISON: No relevant prior studies available. FINDINGS: Intraperitoneal space: No free air. Gastrointestinal tract: Minimal colonic stool burden. No dilation. Bones/joints: Degenerative changes are seen within the spine and hips. No acute fracture. Soft tissues: Surgical clips are seen within the right upper quadrant. IMPRESSION: No acute findings in the abdomen or pelvis.
[2025-04-11] MEDS: MAGNESIUM CITRATE 296 ML BOTTLE PO ONE (08:47)
[2025-04-11 08:50] VITALS: BP 135/76; PULSE 95
[2025-04-11 09:54] LABS: Appearance,Urine Cloudy (Clear); Bacteria,Urine Many /hpf; Bilirubin,Urine Negative (Negative); Blood,Urine Small (Negative); Color,Urine Yellow; Glucose,Urine (UA) Negative (Negative); Ketones,Urine 2+ (Negative); Leukocyte Esterase,Urine Large (Negative); Mucus,Urine Few /hpf; Nitrite,Urine Negative (Negative); Protein,Urine 1+ (Negative); RBC,Urine 7 /hpf (0-5); Specific Gravity,Urine 1.024 (1.001-1.035); Squamous Epithelial Cell,Urine 15 /hpf (0-4); WBC,Urine >182 /hpf (0-5)
== END 2025-04-11 09:00 | disposition home or self-care (01) ==
LOC: EC 01:37
DX: K59.00 Constipation, unspecified (principal); Z88.1 Allergy status to other antibiotic agents; Z88.8 Allergy status to other drugs, medicaments and biological substances
CPT/HCPCS: 51798; 74018; 81001; 99285